=== PATIENT | male | born 1955 | race Caucasian/White ===

== ENCOUNTER → 2016-05-14 | Outpatient (CLI) | payer BC ==
[2016-05-14 10:58] LABS: EKG EKG PERFORMED
[2016-05-14 11:20] LABS: Basophils # (A) 0.1 k/uL (0-0.2); Basophils % (A) 1 %; CH 29.7; CHCM 32.2; Eosinophils # (A) 0.4 k/uL (0-0.7); Eosinophils % (A) 5 %; HCT 52.8 % (39.0-53.0); HDW 3.15; Hypochromasia Slight; Luc # (Auto) 0.13; Luc % (Auto) 2; Lymphocytes # (A) 0.7 k/uL (1.0-4.8); Lymphocytes % (A) 9 %; MCH 29.8 pg (25.0-35.0); MCHC 32.1 g/dL (31.0-37.0); MCV 92.7 fL (80.0-100.0); Mean Platelet Volume 7.1; Monocytes # (A) 0.5 k/uL (0-1.0); Monocytes % (A) 7 %; Neutrophils # (A) 5.8 k/uL (1.3-7.7); Neutrophils % (A) 76 %; WBC 7.6 k/uL (3.8-10.6); WBC (Perox) 7.99
[2016-05-14 11:24] LABS: ALT 57 U/L (21-72); AST 35 U/L (17-59); Alkaline Phosphatase 71 U/L (38-126); Anion Gap 14 mmol/L; Blood Urea Nitrogen 14 mg/dL (9-20); Carbon Dioxide 23 mmol/L (22-30); Chloride 104 mmol/L (98-107); Glucose 191 mg/dL (74-99); Non-African American GFR(MDRD) >60 (>60 ml/min/1.73 sqM); Potassium 4.7 mmol/L (3.5-5.1); Sodium 141 mmol/L (137-145); Total Bilirubin 1.4 mg/dL (0.2-1.3); Total Protein 6.7 g/dL (6.3-8.2)
== END | disposition home or self-care (01) ==
LOC: LABPAT 10:26
PROVIDERS: ATTEND Surgery
DX: Z01.818 Encounter for other preprocedural examination (principal)
CPT/HCPCS: 80053; 85025; 93005

== ENCOUNTER 2016-06-07 07:45 | Inpatient (IN) | payer BC ==
[~2016-06-07 07:45] MED LIST: SUCCINYLCHOLINE CHLORIDE VIAL 200 MG/10 ML VIAL IV ONE
[2016-06-12] MEDS ORDERED: ceFAZolin 3 GM in SODIUM CHLORIDE 0.9% 100 ML IVPB ONE (05:00)
[2016-06-12] MEDS ORDERED: HEPARIN SODIUM,PORCINE 5,000 UNIT/ML 1 ML VIAL SQ ONE (05:00)
[2016-06-12] MEDS ORDERED: DEXAMETHASONE SOD PHOSPHATE 10 MG/ML 1 ML VIAL IV ONE (06:56)
[2016-06-12] MEDS ORDERED: LACTATED RINGERS 1,000 ML IV SCH (06:56)
[2016-06-12] MEDS ORDERED: MIDAZOLAM 2 MG/2 ML VIAL IV PRN (06:56)
[2016-06-12] MEDS ORDERED: ONDANSETRON 4 MG/2 ML VIAL IVP ONE (06:56)
[2016-06-12] MEDS ORDERED: LIDOCAINE 1% 20 ML VIAL (10MG/ML) FOR IV START INTRADERMA ONE (12:44)
[2016-06-12] MEDS ORDERED: ALBUTEROL NEBULIZED 2.5 MG/3 ML INHALATION STA (12:46)
[2016-06-12 12:50] LABS: Glucose,Whole Blood 126 mg/dL (75-99)
--- NOTE | 2016-06-12 12:51 | P.GSHP ---
History of Present Illness H&P Date: 06/12/16 Chief Complaint: Morbid obesity This a 7-year-old male who's had lifetime problems obesity. Patient's BMI is 50. He has severe: Raised related to morbid obesity. He presents today for laparoscopic sleeve gastrectomy. Patient aware the risks of surgery including injury to the stomach liver spleen he is also aware the risk of gastric staple line disruption, bleeding perforation or scarring. - Constitutional Constitutional: Reports as per HPI Past Medical History Past Medical History: Atrial Fibrillation, Hypertension, Respiratory Disorder Additional Past Medical History / Comment(s): asthma History of Any Multi-Drug Resistant Organisms: None Reported Past Surgical History: Appendectomy, Tonsillectomy Additional Past Surgical History / Comment(s): Colonoscopy Past Anesthesia/Blood Transfusion Reactions: No Reported Reaction Past Psychological History: No Psychological Hx Reported Smoking Status: Never smoker Past Alcohol Use History: Occasional Past Drug Use History: None Reported - Past Family History Mother Family Medical History: Deep Vein Thrombosis (DVT) Medications and Allergies Home Medications Medication Instructions Recorded Confirmed Type Aspirin [Adult Low Dose Aspirin EC] 81 mg PO DAILY 01/02/16 06/12/16 History Lisinopril-Hctz 20-12.5 mg 1 tab PO DAILY 01/02/16 06/12/16 History [Zestoretic 20-12.5] Albuterol Nebulized [Ventolin 2.5 dose IH DAILY PRN 01/05/16 06/12/16 History Nebulized] Allergies Allergy/AdvReac Type Severity Reaction Status Date / Time No Known Allergies Allergy Verified 06/12/16 12:30 Surgical - Exam Vital Signs Temp Pulse Resp BP Pulse Ox 97.9 F 77 20 126/73 96 06/12/16 12:28 06/12/16 12:28 06/12/16 12:28 06/12/16 12:28 06/12/16 12:28 BMI 50 - General well developed - Eyes PERRL - ENT normal pinna - Neck no masses - Respiratory normal expansion - Cardiovascular Rhythm: regular - Abdomen Abdomen: soft, non tender Assessment and Plan Plan: Morbid obesity, BMI 50. We'll perform laparoscopic sleeve gastrectomy.
[2016-06-12] MEDS ORDERED: PROPOFOL 10 MG/ML 20 ML VIAL IV ONE (13:12)
[2016-06-12] MEDS ORDERED: ePHEDrine 50 MG/ML 1 ML AMP ONE (13:12)
[2016-06-12] MEDS ORDERED: NEOSTIGMINE 1 MG/ML 10 ML VIAL ONE (13:12)
[2016-06-12] MEDS ORDERED: MIDAZOLAM 2 MG/2 ML VIAL ONE (13:12)
[2016-06-12] MEDS ORDERED: LIDOCAINE 1% INJ 10MG/ML (20 ML MDV) ONE (13:12)
[2016-06-12] MEDS ORDERED: ROCURONIUM BROMIDE 10 MG/ML 10 ML VIAL IV ONE (13:12)
[2016-06-12] MEDS ORDERED: fentaNYL (PF) 50 MCG/ML 2 ML AMP ONE (13:12)
[2016-06-12] MEDS ORDERED: GLYCOPYRROLATE 0.2 MG/ML 2 ML VIAL ONE (13:12)
[2016-06-12] MEDS ORDERED: SUCCINYLCHOLINE CHLORIDE VIAL 200 MG/10 ML VIAL IV ONE (13:12)
[2016-06-12] MEDS ORDERED: BUPIVACAIN-EPI 0.25%-1:200,000 30 ML VIAL SQ ONE ×2 (13:22)
[2016-06-12] MEDS ORDERED: LACTATED RINGERS 1,000 ML IV ONE (14:30)
[2016-06-12] MEDS ORDERED: METHYLENE BLUE 10 MG/ML 1 ML VIAL MISCELLANE ONE (14:36)
[2016-06-12] MEDS ORDERED: NALOXONE 0.4 MG/ML 1 ML VIAL IV PRN (15:09)
[2016-06-12] MEDS ORDERED: ONDANSETRON 4 MG/2 ML VIAL IVP PRN (15:09)
--- NOTE | 2016-06-12 15:09 | P.OP ---
Date of Procedure: 06/12/16 Preoperative Diagnosis: Morbid obesity Postoperative Diagnosis: Morbid obesity Procedure(s) Performed: Laparoscopic sleeve gastrectomy. Laparoscopic hiatal hernia repair Anesthesia: PHONG Surgeon: Jesus Ferreira Estimated Blood Loss (ml): 5 Pathology: other (Gastric remnant) Condition: stable Disposition: PACU Description of Procedure: The patient was placed on the operating room table in the supine position. She received general anesthesia and then was placed in dorsal lithotomy position. Her abdomen was prepped and draped in sterile fashion. The skin incision sites were anesthetized 1% local Xylocaine. And then the skin was incised with an 11 blade in the left lateral position. Using a blade less trocar under direct visualization the peritoneal cavity was entered. The abdomen was insufflated and then a 5 mm laparoscope was placed into the peritoneal cavity. A 5 mm trocar was placed in the right epigastric, and right lateral position. A 15 mm trocar was placed in the supra-umbilical position and another 5 mm trocar was placed in the left lateral position. The left lateral lobe of the liver was retracted. The stomach was visualized. The greater curvature of the stomach was then dissected using the Harmonic scissors. The dissection occurred approximately 5 cm from the pylorus to the level of the left jessi. There was a hiatal hernia seen. The right and left jessi were dissected with the Harmonic scissors. And then the crural repair was performed using 2-0 Ethibond suture. At this point a 40-English bougie dilator was placed the oropharynx and passed into the esophagus and into the stomach by the CLAIM TECHNICIAN. The sleeve gastrectomy was performed by using the powered echelon stapler with a seam guard buttress material. Sequential firings of the stapler were performed. The gastric remnant was then brought out through the 15 mm trocar site. The dilator was withdrawn. And a orogastric tube was replaced into the stomach. The stomach was insufflated with 200 mL of methylene blue normal saline. There was no evidence of extravasation. The abdomen was irrigated there is no bleeding seen. The Stephane-Pau device was used to close the 15 mm trocar with 0 Vicryl. Skin was closed with interrupted 3-0 Monocryl sutures once the trochars withdrawn. Dermabond dressing was applied. Patient was sent to recovery in stable condition.
[2016-06-12] MEDS: HYDROmorphone 1 MG/ML 1 ML SYRINGE IVP PRN ×5 (15:35→22:50)
[2016-06-12] MEDS: ALBUTEROL NEBULIZED 2.5 MG/3 ML INHALATION SCH ×2 (16:58→20:20)
[2016-06-12 18:21] VITALS: BMI 49.4
[2016-06-12] MEDS: 0.9% NACL WITH KCL 20 MEQ/L 1,000 ML IV SCH (18:31)
[2016-06-12] MEDS: AMPICILLIN-SULBACTAM 3 GM in SODIUM CHLORIDE 0.9% 100 ML IVPB SCH ×2 (18:32→23:25)
[2016-06-12] MEDS: KETOROLAC 30 MG/ML 1 ML VIAL IVP SCH (19:13)
[2016-06-13] MEDS: KETOROLAC 30 MG/ML 1 ML VIAL IVP SCH ×4 (00:03→16:49)
[2016-06-13] MEDS: HYDROmorphone 1 MG/ML 1 ML SYRINGE IVP PRN ×2 (03:01→08:59)
[2016-06-13] MEDS: 0.9% NACL WITH KCL 20 MEQ/L 1,000 ML IV SCH ×3 (05:27→09:03)
[2016-06-13 08:15] LABS: Basophils % (A) 0 %; CHCM 32.5; Eosinophils # (A) 0.1 k/uL (0-0.7); Eosinophils % (A) 0 %; HCT 46.7 % (39.0-53.0); HDW 3.07; HGB 14.7 gm/dL (13.0-17.5); Luc # (Auto) 0.08; Luc % (Auto) 1; Lymphocytes # (A) 0.4 k/uL (1.0-4.8); Lymphocytes % (A) 3 %; MCH 29.2 pg (25.0-35.0); MCHC 31.4 g/dL (31.0-37.0); MCV 92.9 fL (80.0-100.0); Mean Platelet Volume 7.7; Monocytes % (A) 7 %; Neutrophils # (A) 12.1 k/uL (1.3-7.7); Neutrophils % (A) 89 %; RBC 5.03 m/uL (4.30-5.90); RDW 13.8 % (11.5-15.5); WBC 13.7 k/uL (3.8-10.6); WBC (Perox) 14.13
[2016-06-13 08:19] LABS: Anion Gap 11 mmol/L; Blood Urea Nitrogen 20 mg/dL (9-20); Calcium 8.7 mg/dL (8.4-10.2); Carbon Dioxide 22 mmol/L (22-30); Chloride 104 mmol/L (98-107); Magnesium 1.7 mg/dL (1.6-2.3); Non-African American GFR(MDRD) >60 (>60 ml/min/1.73 sqM); Phosphorous 4.1 mg/dL (2.5-4.5); Potassium 5.2 mmol/L (3.5-5.1); Sodium 137 mmol/L (137-145)
--- NOTE | 2016-06-13 08:51 | FL ---
EXAMINATION TYPE: FL UGI DATE OF EXAM: 06/13/2016 8:42 AM COMPARISON: NONE HISTORY: Status post gastric sleeve TECHNIQUE: A single contrast UGI study is performed. FINDINGS: Patient was given 50 cc Omni 350 to drink and attention directed to the gastroesophageal ju nction. Incidental note made of multiple gallstones in the right upper quadrant. There is no obstruct ion to flow or extravasation evident. Transit into the small bowel is noted. Postop changes are prese nt in the stomach. Impression: No evident complication status post gastric sleeve, limited exam.
[2016-06-13] MEDS: PANTOPRAZOLE 40 MG/10 ML VIAL IV SCH (08:58)
[2016-06-13] MEDS: ENOXAPARIN 60 MG/0.6 ML SYRINGE SQ SCH ×2 (08:58→22:10)
[2016-06-13] MEDS: ALBUTEROL NEBULIZED 2.5 MG/3 ML INHALATION SCH ×3 (09:01→15:30)
[2016-06-13] MEDS ORDERED: Magnesium Replacement Protocol 1 EACH MISC MISCELLANE PRN (10:54)
--- NOTE | 2016-06-13 11:51 | P.PN ---
Subjective Principal diagnosis: Morbid obesity Patient is a 61-year-old male with medical history significant for morbid obesity status post laparoscopic sleeve gastrectomy and laparoscopic hiatal hernia repair. Patient is evaluated on surgical unit where he is postop day #1. According to nurse, patient was experiencing mild respiratory distress post surgery requiring BiPAP temporarily. Pulmonary consult has been obtained. This morning, patient is feeling better. Denies chills, nausea, vomiting, shortness of breath, or chest pain. Denies dysphagia. Patient is tolerating clear liquids. Patient denies flatus or bowel movements but reports burping. Patient is urinating without difficulty. Patient has been up ambulating. Upper GI series without leak or obstruction; incidental note made of multiple gallstones in the right upper quadrant. Afebrile. WBC 13.7. Objective - Vital Signs Vital signs: Vital Signs Temp 97.9 F 06/13/16 08:30 Pulse 78 06/13/16 09:14 Resp 18 06/13/16 08:30 BP 108/66 06/13/16 08:30 Pulse Ox 96 06/13/16 09:03 Intake & Output 06/12/16 06/13/16 06/13/16 18:59 06:59 18:59 Intake Total 1300 Output Total 10 200 Balance 1290 -200 Weight 165.108 kg Intake: IV 1300 Output: Urine 200 Estimated Blood Loss 10 Other: Voiding Method Toilet Toilet - Exam GENERAL: Pt awake and alert, well-appearing, well-nourished, and in no acute distress. LUNGS: Breath sounds diminished with faint expiratory wheezing. HEART: Heart S1, S2, no S3 or S4. Irregularly irregular. No murmurs, rubs or gallops. ABDOMEN: Soft, morbidly obese, mild incisional tenderness, nondistended, hypoactive bowel sounds. No guarding. Surgical laparoscopic incisions dry with Dermabond intact. No erythema or drainage. NEUROLOGICAL: Pt oriented x 3. - Labs CBC & Chem 7: 06/13/16 07:44 06/13/16 07:38 Labs: Abnormal Lab Results - Last 24 Hours (Table) 06/12/16 06/13/16 06/13/16 Range/Units 12:48 07:38 07:44 WBC 13.7 H (3.8-10.6) k/uL Neutrophils # 12.1 H (1.3-7.7) k/uL Lymphocytes # 0.4 L (1.0-4.8) k/uL Potassium 5.2 H (3.5-5.1) mmol/L POC Glucose (mg/dL) 126 H (75-99) mg/dL Assessment and Plan Plan: Impression: 1. Morbid obesity status post laparoscopic sleeve gastrectomy on 06/12/2016. 2. Status post laparoscopic hiatal hernia repair on 06/12/2016. 3. Leukocytosis, suspect reactive. WBC 13.7. 4. Hyperkalemia. Potassium 5.2. 5. Hypomagnesemia. Magnesium 1.7. 6. Post operative respiratory distress, improved. Plan: 1. Continue to monitor patient. Obtain chest x-ray. Pulmonary consult requested, recommendations pending. Replace magnesium per protocol. Remove potassium from IV fluids. Continue supportive treatment and pain management. Increase activity. Continue incentive spirometry 10 times an hour while awake. Repeat CBC and BMP in a.m. The above impression and plan have been discussed and directed by Dr. Ferreira. Robinson BROWN acting as scribe for Dr. Ferreira.
[2016-06-13] MEDS ORDERED: HYDROcodone/APAP 7.5-325MG 1 EACH TAB PO PRN (11:52)
[2016-06-13] MEDS: MAGNESIUM SULFATE-D5W PMX 1 GM in DEXTROSE/WATER 1 100ML.BAG IVPB SCH ×2 (12:19→16:49)
--- NOTE | 2016-06-13 12:29 | XR ---
EXAMINATION TYPE: XR chest 2V DATE OF EXAM: 06/13/2016 11:11 AM COMPARISON: 08/19/2013 HISTORY: Shortness of breath FINDINGS: Subsegmental changes at the right lung base. There is pleural-based thickening and small effusion. He art is enlarged. Correlate for mild central venous congestion. IMPRESSION: 1. Correlate for mild venous congestion with small bilateral effusions.
[2016-06-13] MEDS: SODIUM CHLORIDE 0.9% 1,000 ML IV SCH (12:30)
--- NOTE | 2016-06-13 13:20 | P.CRDCN ---
History of Present Illness Consult date: 06/13/16 History of present illness: This is a 61-year-old gentleman with history of morbid obesity who underwent gastric sleeve operation was found to have atrial fibrillation. According to the patient patient had atrial fibrillation for along time. He claims that he was seen by [facility] couple of years ago and had evaluation for atrial fibrillation. He claims that he had a cardiac catheterization and was not found to have any significant obstructive disease and he was advised to be on aspirin. Patient is also being treated for hypertension. Patient's heart rate is controlled. He denies any chest pain shortness of breath or dizziness. At the time of my examination patient is sitting at the edge of the bed and doesn' t appear to be in acute distress. I'm going to get an echocardiogram done to assess LV function. If LV function is normal, patient can continue with rate control and aspirin. Patient also may consider going on anticoagulation therapy , especially patient has any LV dysfunction or if he has any vascular disorder. Further recommendation to follow.The patient has underlying COPD and chronic wheezing and has been on updraft treatments at home . His chest x-ray was reported as showing mild venous congestion and possible small effusions Review of Systems As per the chart Past Medical History Past Medical History: Atrial Fibrillation, Hypertension, Respiratory Disorder Additional Past Medical History / Comment(s): asthma History of Any Multi-Drug Resistant Organisms: None Reported Past Surgical History: Appendectomy, Tonsillectomy Additional Past Surgical History / Comment(s): Colonoscopy Past Anesthesia/Blood Transfusion Reactions: No Reported Reaction Past Psychological History: No Psychological Hx Reported Smoking Status: Never smoker Past Alcohol Use History: Occasional Past Drug Use History: None Reported - Past Family History Mother Family Medical History: Deep Vein Thrombosis (DVT) Medications and Allergies Home Medications Medication Instructions Recorded Confirmed Type Aspirin [Adult Low Dose Aspirin EC] 81 mg PO DAILY 01/02/16 06/12/16 History Lisinopril-Hctz 20-12.5 mg 1 tab PO DAILY 01/02/16 06/12/16 History [Zestoretic 20-12.5] Albuterol Nebulized [Ventolin 2.5 mg INHALATION RT-DAILY PRN 01/05/16 06/12/16 History Nebulized] Allergies Allergy/AdvReac Type Severity Reaction Status Date / Time No Known Allergies Allergy Verified 06/12/16 16:52 Physical Exam Vitals: Vital Signs Temp Pulse Pulse Pulse Resp BP Pulse Ox 06/13/16 12:14 84 06/13/16 11:55 79 06/13/16 11:49 95 06/13/16 09:14 78 06/13/16 09:03 76 96 06/13/16 08:30 97.9 F 78 18 108/66 98 06/13/16 08:00 67 18 06/13/16 03:34 96.8 F L 67 18 116/66 99 06/12/16 23:41 95 06/12/16 20:49 74 06/12/16 20:36 72 06/12/16 19:45 81 107/66 06/12/16 19:30 80 113/57 06/12/16 19:15 86 118/61 06/12/16 19:00 84 106/62 06/12/16 18:45 83 113/62 06/12/16 18:30 86 107/65 06/12/16 18:15 89 120/65 06/12/16 18:00 92 110/61 06/12/16 17:45 92 103/60 06/12/16 17:30 94 114/56 06/12/16 17:15 90 115/69 06/12/16 17:11 78 06/12/16 17:00 88 108/72 06/12/16 16:58 74 06/12/16 16:45 86 113/75 06/12/16 16:30 96.6 F L 85 18 128/62 96 06/12/16 16:00 81 16 125/71 92 L 06/12/16 15:48 90 16 158/67 92 L 06/12/16 15:30 115 H 16 93 L 06/12/16 15:08 96.8 F L 93 20 165/77 93 L Intake and Output 06/12/16 06/13/16 06/13/16 22:59 06:59 14:59 Intake Total 0 Output Total 200 Balance 0 -200 Intake: IV 0 Output: Urine 200 Other: Voiding Method Toilet Toilet Toilet Urinal Weight 165.108 kg GENERAL EXAM: Patient is alert and oriented and doesn't appear to be in any acute distress HEENT: Normocephalic. Normal reaction of pupils, equal size, normal range of extraocular motion. No erythema or exudates in the throat. NECK: No masses, no nuchal rigidity. CHEST: No chest wall deformity. LUNGS: Expiratory wheezing and rhonchi HEART: S1 and S2 normal with no audible mumurs or gallops. Regular rhythm, femorals equal on both sides.. ABDOMEN: No hepatosplenomegaly, normal bowel sounds, no guarding or rigidity. SKIN: No rashes CENTRAL NERVOUS SYSTEM: No focal deficits. EXTREMITIES: No cyanosis, clubbing or edema. Results 06/13/16 07:44 06/13/16 07:38 CBC 06/13/16 Range/Units 07:44 WBC 13.7 H (3.8-10.6) k/uL RBC 5.03 (4.30-5.90) m/uL Hgb 14.7 (13.0-17.5) gm/dL Hct 46.7 (39.0-53.0) % Plt Count 186 (150-450) k/uL Comprehensive Metabolic Panel 06/13/16 Range/Units 07:38 Sodium 137 (137-145) mmol/L Potassium 5.2 H (3.5-5.1) mmol/L Chloride 104 (98-107) mmol/L Carbon Dioxide 22 (22-30) mmol/L BUN 20 (9-20) mg/dL Creatinine 1.14 (0.66-1.25) mg/dL Calcium 8.7 (8.4-10.2) mg/dL Current Medications Generic Name Dose Route Start Last Admin Trade Name Freq PRN Reason Stop Dose Admin Acetaminophen/Hydrocodone Bitart 1 each 06/13/16 11:52 [place] 7.5-325 PO Q6H PRN Pain Albuterol Sulfate 2.5 mg 06/12/16 16:00 06/13/16 11:55 Ventolin Nebulized INHALATION 2.5 mg RT-QID BERENICE Administration Enoxaparin Sodium 60 mg 06/13/16 09:00 06/13/16 08:58 Lovenox SQ 60 mg Q12HR BERENICE Administration Hydromorphone HCl 1 mg 06/12/16 15:09 06/13/16 08:59 Dilaudid IVP 1 mg Q3HR PRN Administration Pain Sodium Chloride 1,000 mls @ 75 mls/hr 06/13/16 10:45 06/13/16 12:30 Saline 0.9% IV 75 mls/hr .[id number] BERENICE Administration Ketorolac Tromethamine 15 mg 06/12/16 18:00 06/13/16 12:19 Toradol IVP 06/14/16 12:01 15 mg Q6HR BERENICE Administration Miscellaneous Information 1 each 06/13/16 10:54 Magnesium Per Protocol MISCELLANE DAILY PRN Per Protocol Protocol Naloxone HCl 0.2 mg 06/12/16 15:09 Narcan IV Q2M PRN Opioid Reversal Ondansetron HCl 4 mg 06/12/16 15:09 06/12/16 22:04 Zofran IVP 4 mg Q8HR PRN Administration Nausea And Vomiting Pantoprazole Sodium 40 mg 06/13/16 09:00 06/13/16 08:58 Protonix IV 40 mg DAILY BERENICE Administration Intake and Output 06/12/16 06/13/16 06/13/16 22:59 06:59 14:59 Intake Total 0 Output Total 200 Balance 0 -200 Intake: IV 0 Output: Urine 200 Other: Voiding Method Toilet Toilet Toilet Urinal Weight 165.108 kg 06/13/16 07:44 06/13/16 07:38 EKG Interpretations (text) Atrial fibrillation with controlled ventricular response Assessment and Plan (1) Atrial fibrillation Status: Acute (2) Hypertension Status: Acute (3) Morbid obesity Status: Acute (4) CHF (congestive heart failure) Status: Acute Plan: I'm going to obtain echocardiogram to assess LV function and I'm also going to get BNP levels. If the LV function shows an ejection fraction below 40% or. BNP is elevated consistent with CHF, we'll may switch aspirin to anticoagulation therapy.
--- NOTE | 2016-06-13 14:40 | P.CONS ---
History of Present Illness - Reason for Consult Consult date: 06/12/16 Medical management Requesting physician: Jesus Ferreira - Chief Complaint Morbid obesity - History of Present Illness Patient is a 61-year-old male admitted to the hospital for elective laparoscopic sleeve gastrectomy for morbid obesity having failed outpatient conservative treatment. Patient also has a medical history of atrial fibrillation, hypertension, and asthma. Patient is evaluated on the surgical unit where he is postop day #1. Per nursing staff, patient had some respiratory difficulties after arriving on the unit after surgery and was placed on BiPAP for a short period of time. This morning, patient is lying in bed. Patient is complaining of moderate incisional pain exacerbated with movement. Patient denies chills, fevers, nausea, vomiting, increased shortness of breath, chest pain, leg swelling, diarrhea or constipation. At this time, patient denies flatus but reports burping. Upper GI series with no evidence of leak or obstruction. Patient is tolerating a clear liquid diet. Patient is currently on 2 L nasal cannula with oxygenation of 95%. Afebrile. Hemodynamically stable. WBC 13.7. Potassium 5.2. Magnesium 1.7. NT proBNP 687. Past Medical History Past Medical History: Atrial Fibrillation, Hypertension, Respiratory Disorder Additional Past Medical History / Comment(s): asthma History of Any Multi-Drug Resistant Organisms: None Reported Past Surgical History: Appendectomy, Tonsillectomy Additional Past Surgical History / Comment(s): Colonoscopy Past Anesthesia/Blood Transfusion Reactions: No Reported Reaction Past Psychological History: No Psychological Hx Reported Smoking Status: Never smoker Past Alcohol Use History: Occasional Past Drug Use History: None Reported - Past Family History Mother Family Medical History: Deep Vein Thrombosis (DVT) Medications and Allergies Home Medications Medication Instructions Recorded Confirmed Type Aspirin [Adult Low Dose Aspirin EC] 81 mg PO DAILY 01/02/16 06/12/16 History Lisinopril-Hctz 20-12.5 mg 1 tab PO DAILY 01/02/16 06/12/16 History [Zestoretic 20-12.5] Albuterol Nebulized [Ventolin 2.5 mg INHALATION RT-DAILY PRN 01/05/16 06/12/16 History Nebulized] Allergies Allergy/AdvReac Type Severity Reaction Status Date / Time No Known Allergies Allergy Verified 06/12/16 16:52 Physical Exam Vitals: Vital Signs Temp Pulse Pulse Pulse Resp BP Pulse Ox 06/13/16 12:14 84 06/13/16 11:55 79 06/13/16 11:49 95 06/13/16 09:14 78 06/13/16 09:03 76 96 06/13/16 08:30 97.9 F 78 18 108/66 98 06/13/16 08:00 67 18 06/13/16 03:34 96.8 F L 67 18 116/66 99 06/12/16 23:41 95 06/12/16 20:49 74 06/12/16 20:36 72 06/12/16 19:45 81 107/66 06/12/16 19:30 80 113/57 06/12/16 19:15 86 118/61 06/12/16 19:00 84 106/62 06/12/16 18:45 83 113/62 06/12/16 18:30 86 107/65 06/12/16 18:15 89 120/65 06/12/16 18:00 92 110/61 06/12/16 17:45 92 103/60 06/12/16 17:30 94 114/56 06/12/16 17:15 90 115/69 06/12/16 17:11 78 06/12/16 17:00 88 108/72 06/12/16 16:58 74 06/12/16 16:45 86 113/75 06/12/16 16:30 96.6 F L 85 18 128/62 96 06/12/16 16:00 81 16 125/71 92 L 06/12/16 15:48 90 16 158/67 92 L 06/12/16 15:30 115 H 16 93 L 06/12/16 15:08 96.8 F L 93 20 165/77 93 L Intake and Output 06/12/16 06/13/16 06/13/16 22:59 06:59 14:59 Intake Total 0 Output Total 200 Balance 0 -200 Intake: IV 0 Output: Urine 200 Other: Voiding Method Toilet Toilet Toilet Urinal Weight 165.108 kg GENERAL: Pt awake and alert, well-appearing, well-nourished, and in no acute distress. HEAD: Atraumatic, normocephalic. EYES: Pupils equal, round, and reactive to light, extraocular movements intact, sclera anicteric, conjunctiva are normal. ENT: Moist mucous membranes. NECK:Normal range of motion, supple without lymphadenopathy or JVD. LUNGS: Breath sounds diminished with faint expiratory wheezing. HEART: Heart S1, S2, no S3 or S4. Irregularly irregular. No murmurs, rubs or gallops. Atrial fibrillation with controlled ventricular response on monitor. ABDOMEN: Soft, morbidly obese, mild incisional tenderness, nondistended, hypoactive bowel sounds. No guarding. Laparoscopic incisions dry with Dermabond intact, no erythema or drainage. EXTREMITIES: 2+ peripheral pulses. No edema. No calf tenderness. NEUROLOGICAL: Pt oriented x 3. Cranial nerves II through XII grossly intact. Strength and sensation grossly intact. PSYCH: Normal mood, normal affect. SKIN: Warm, dry, intact. Normal turgor. No rashes or lesions. Results CBC & Chem 7: 06/13/16 07:44 06/13/16 07:38 Labs: Abnormal Lab Results - Last 24 Hours (Table) 06/13/16 06/13/16 Range/Units 07:38 07:44 WBC 13.7 H (3.8-10.6) k/uL Neutrophils # 12.1 H (1.3-7.7) k/uL Lymphocytes # 0.4 L (1.0-4.8) k/uL Potassium 5.2 H (3.5-5.1) mmol/L Assessment and Plan Plan: Impression and plan: 1. Morbid obesity status post laparoscopic sleeve gastrectomy and laparoscopic hiatal hernia repair on 06/12/2016. Continue surgical management by surgical team. 2. History of asthma. Will obtain chest x-ray. 3. Leukocytosis, suspect reactive. WBC 13.7. 4. Hyperkalemia. Potassium 5.2. 5. Hypomagnesemia. Magnesium 1.7. 6. Post operative respiratory distress, improved. Pulmonary consult requested , recommendations pending. 7. Chronic atrial fibrillation. Cardiology consult requested, recommendations pending. 8. Hypertension. 9. GI prophylaxis. Continue Protonix. 10. DVT prophylaxis. Continue Lovenox. 11. Repeat CBC and BMP in a.m. The above impression and plan have been discussed and directed by Dr. Bhakta. Robinson BROWN acting as scribe for Dr. Bhakta.
[2016-06-13] MEDS ORDERED: ALBUTEROL NEBULIZED 2.5 MG/3 ML INHALATION PRN (17:32)
--- NOTE | 2016-06-13 17:33 | P.CNPUL ---
History of Present Illness Consult date: 06/13/16 Reason for consult: dyspnea, hypoxemia Chief complaint: Hypoxia History of present illness: This is a 61-year-old morbidly obese male who presented for elective laparoscopic sleeve gastrectomy. Per the medical record the patient had some respiratory difficulties after his surgery. He did require BiPAP for a short time. The patient is seen and examined currently on room air. His O2 saturation is 96%. He is sitting up at the bedside. He is complaining of abdominal pain. He is dates that he has a history of asthma but has never had a pulmonary function test. He states he is a never smoker except for a few times in high school. 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 The patient states that he does occasionally snore. He does have frequent nighttime awakenings requiring him to get up and use the bathroom. He denies any history of waking himself up choking, coughing, gagging. He becomes upset when obstructive sleep apnea as discussed. He states that "people think I have sleep apnea just because on that." The pathophysiology of obstructive sleep apnea discussed with the patient. 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 Review of Systems All systems: negative Past Medical History Past Medical History: Atrial Fibrillation, Hypertension, Respiratory Disorder Additional Past Medical History / Comment(s): asthma History of Any Multi-Drug Resistant Organisms: None Reported Past Surgical History: Appendectomy, Tonsillectomy Additional Past Surgical History / Comment(s): Colonoscopy Past Anesthesia/Blood Transfusion Reactions: No Reported Reaction Past Psychological History: No Psychological Hx Reported Smoking Status: Never smoker Past Alcohol Use History: Occasional Past Drug Use History: None Reported - Past Family History Mother Family Medical History: Deep Vein Thrombosis (DVT) Medications and Allergies Home Medications Medication Instructions Recorded Confirmed Type Aspirin [Adult Low Dose Aspirin EC] 81 mg PO DAILY 01/02/16 06/12/16 History Lisinopril-Hctz 20-12.5 mg 1 tab PO DAILY 01/02/16 06/12/16 History [Zestoretic 20-12.5] Albuterol Nebulized [Ventolin 2.5 mg INHALATION RT-DAILY PRN 01/05/16 06/12/16 History Nebulized] Allergies Allergy/AdvReac Type Severity Reaction Status Date / Time No Known Allergies Allergy Verified 06/12/16 16:52 Physical Exam Osteopathic Statement: *. No significant issues noted on an osteopathic structural exam other than those noted in the History and Physical/Consult. Vitals: Vital Signs Temp Pulse Pulse Pulse Resp BP Pulse Ox 06/13/16 15:00 97.4 F L 65 18 112/67 94 L 06/13/16 12:14 84 06/13/16 11:55 79 06/13/16 11:49 95 06/13/16 09:14 78 06/13/16 09:03 76 96 06/13/16 08:30 97.9 F 78 18 108/66 98 06/13/16 08:00 67 18 06/13/16 03:34 96.8 F L 67 18 116/66 99 06/12/16 23:41 95 06/12/16 20:49 74 06/12/16 20:36 72 06/12/16 19:45 81 107/66 06/12/16 19:30 80 113/57 06/12/16 19:15 86 118/61 06/12/16 19:00 84 106/62 06/12/16 18:45 83 113/62 06/12/16 18:30 86 107/65 06/12/16 18:15 89 120/65 06/12/16 18:00 92 110/61 06/12/16 17:45 92 103/60 06/12/16 17:30 94 114/56 Intake and Output 06/13/16 06/13/16 06/13/16 06:59 14:59 22:59 Output Total 200 Balance -200 Output: Urine 200 Other: Voiding Method Toilet Toilet Gen.: Patient is alert and oriented 3, no acute distress, morbidly obese Cardiovascular: Regular rate and rhythm, S1/S2 Lungs: Diminished sounds bilaterally Abdomen: Soft, mildly diffusely tender to palpation, positive bowel sounds Extremities: 1+ pitting edema Results - Laboratory Findings CBC and BMP: 06/13/16 07:44 06/13/16 07:38 Abnormal lab findings: Abnormal Labs 06/12/16 06/13/16 06/13/16 12:48 07:38 07:44 WBC 13.7 H Neutrophils # 12.1 H Lymphocytes # 0.4 L Potassium 5.2 H POC Glucose (mg/dL) 126 H - Diagnostic Findings Chest x-ray: report reviewed, image reviewed Assessment and Plan Plan: Acute hypoxic respiratory failure, multifactorial Morbid obesity, likely underlying obstructive sleep apnea History of asthma, unknown type Pulmonary vascular congestion on chest x-ray Status post elective laparoscopic sleeve gastrectomy History of atrial fibrillation History of congestive heart failure, unknown type and ejection fraction Hypertension O2 to maintain saturation greater than equal to 88% Check echocardiogram Patient is encouraged to follow-up outpatient for PSG and PFT Pain control Incentive spirometry and pulmonary hygiene I's and O's and daily weights DC BiPAP Bronchodilators and Pulmicort GI and DVT prophylaxis
[2016-06-13 18:32] VITALS: RESP 16
[2016-06-13] MEDS: IPRATROPIUM-ALBUTEROL 3 ML NEB INHALATION SCH (19:40)
[2016-06-13] MEDS: BUDESONIDE 0.5 MG/2 ML NEBU INHALATION SCH (19:40)
[2016-06-14] MEDS: KETOROLAC 30 MG/ML 1 ML VIAL IVP SCH ×3 (01:41→11:06)
[2016-06-14] MEDS: SODIUM CHLORIDE 0.9% 1,000 ML IV SCH (01:42)
[2016-06-14] MEDS: IPRATROPIUM-ALBUTEROL 3 ML NEB INHALATION SCH ×2 (06:00→10:38)
[2016-06-14] MEDS: BUDESONIDE 0.5 MG/2 ML NEBU INHALATION SCH (06:00)
[2016-06-14 07:33] VITALS: BP 118/60; TEMP 97.6
--- NOTE | 2016-06-14 09:04 | ECHOF ---
Referral Reason:Chest pain and cardiomyopathy MEASUREMENTS -------- HEIGHT: 182.9 cm WEIGHT: 165.1 kg BP: 108/66 RVIDd: 3.9 cm (< 3.3) IVSd: 1.3 cm (0.6 - 1.1) LVIDd: 5.9 cm (3.9 - 5.3) LVPWd: 1.3 cm (0.6 - 1.1) IVSs: 2.0 cm LVIDs: 4.4 cm LVPWs: 2.0 cm LA Diam: 4.7 cm (2.7 - 3.8) Ao Diam: 3.9 cm (2.0 - 3.7) LA Diam: 4.7 cm (2.7 - 3.8) RAP: 5.00 mmHg RVSP: 34.03 mmHg FINDINGS -------- Atrial fibrillation. This was a technically difficult study with suboptimal views. There is mild concentric left ventricular hypertrophy. Overall left ventricular systolic function is low-normal with, an EF between 50 - 55 %. The right ventricle is mild to moderately enlarged. The left atrium is markedly dilated. The right atrium is normal in size. 1.5mg of Definity was utilized for enhancement of images Aortic valve is trileaflet and is mildly thickened. The mitral valve leaflets are mildly thickened. Mild mitral annular calcification present. Mild tricuspid regurgitation present. Right ventricular systolic pressure is normal at < 35 mmHg. The pulmonic valve was not well visualized. The aortic root is dilated measuring 3.9cm. There is no pericardial effusion. CONCLUSIONS -------- 1. Atrial fibrillation. 2. Mild mitral annular calcification present. 3. Mild tricuspid regurgitation present. 4. Right ventricular systolic pressure is normal at < 35 mmHg. 5. The pulmonic valve was not well visualized. 6. The aortic root is dilated measuring 3.9cm. 7. There is no pericardial effusion. 8. This was a technically difficult study with suboptimal views. 9. There is mild concentric left ventricular hypertrophy. 10. Overall left ventricular systolic function is low-normal with, an EF between 50 - 55 %. 11. The left atrium is markedly dilated. 12. The right atrium is normal in size. 13. 1.5mg of Definity was utilized for enhancement of images 14. Aortic valve is trileaflet and is mildly thickened. 15. The mitral valve leaflets are mildly thickened. RAIL ENGINEER: Benja Diaz RDCS
[2016-06-14] MEDS: PANTOPRAZOLE 40 MG/10 ML VIAL IV SCH (09:14)
[2016-06-14] MEDS: ENOXAPARIN 60 MG/0.6 ML SYRINGE SQ SCH (09:14)
[2016-06-14] MEDS ORDERED: METOCLOPRAMIDE 5 MG/ML 2 ML VIAL IVP PRN (10:15)
[2016-06-14 10:18] LABS: Basophils % (A) 0 %; CH 29.8; CHCM 31.8; Eosinophils # (A) 0.1 k/uL (0-0.7); Eosinophils % (A) 2 %; HDW 2.92; HGB 14.9 gm/dL (13.0-17.5); Hypochromasia Slight; Luc # (Auto) 0.09; Luc % (Auto) 1; Lymphocytes # (A) 0.8 k/uL (1.0-4.8); Lymphocytes % (A) 10 %; MCH 30.4 pg (25.0-35.0); MCHC 32.3 g/dL (31.0-37.0); MCV 94.1 fL (80.0-100.0); Mean Platelet Volume 7.4; Monocytes # (A) 0.6 k/uL (0-1.0); Monocytes % (A) 8 %; Neutrophils # (A) 6.6 k/uL (1.3-7.7); Neutrophils % (A) 80 %; RBC 4.89 m/uL (4.30-5.90); WBC 8.3 k/uL (3.8-10.6); WBC (Perox) 8.37
[2016-06-14 10:23] LABS: Anion Gap 11 mmol/L; Blood Urea Nitrogen 20 mg/dL (9-20); Calcium 8.8 mg/dL (8.4-10.2); Carbon Dioxide 24 mmol/L (22-30); Chloride 104 mmol/L (98-107); Glucose 116 mg/dL (74-99); Non-African American GFR(MDRD) >60 (>60 ml/min/1.73 sqM); Potassium 4.6 mmol/L (3.5-5.1); Sodium 139 mmol/L (137-145)
[2016-06-14 11:13] VITALS: PULSE 85
--- NOTE | 2016-06-14 11:28 | P.PN ---
Subjective Principal diagnosis: Chronic atrial fibrillation This is a 61-year-old gentleman who was admitted to the hospital and underwent gastric sleeve operation. We're asked to see the patient because of atrial fibrillation. Atrial fibrillation appears to be chronic with controlled heart rate. His echocardiogram showed good LV function. His BNP level is within normal limits for his age. At this point patient is advised to continue with rate control and aspirin. We'll make an appointment to see Dr. Gonsales as an outpatient. He does have history of hypertension and mild coronary artery disease. In the future patient may become a candidate for anticoagulation therapy Objective - Vital Signs Vital signs: Vital Signs Temp 97.6 F 06/14/16 07:31 Pulse 62 06/14/16 10:49 Resp 16 06/14/16 08:00 BP 118/60 06/14/16 07:31 Pulse Ox 97 06/14/16 07:31 Intake & Output 06/13/16 06/14/16 06/14/16 18:59 06:59 18:59 Intake Total 300 300 Output Total 200 Balance 300 300 -200 Weight 165.108 kg Intake: IV 300 Sodium Chloride 0.9% 1, 300 000 ml @ 75 mls/hr IV . [id number] [facility] Rx#:[id number] Oral 300 Output: Urine 200 Other: Voiding Method Toilet Toilet Toilet # Voids 1 1 - Labs CBC & Chem 7: 06/14/16 06:27 06/14/16 06:27 Labs: Abnormal Lab Results - Last 24 Hours (Table) 06/14/16 06/14/16 Range/Units 06:27 06:27 Lymphocytes # 0.8 L (1.0-4.8) k/uL Glucose 116 H (74-99) mg/dL Assessment and Plan (1) Atrial fibrillation Status: Acute (2) Hypertension Status: Acute (3) Morbid obesity Status: Acute (4) CHF (congestive heart failure) Status: Acute Plan: His LV function is preserved. ProBNP level is within normal limits. Patient is feeling better. There is a less wheezing in the lungs. Patient could be discharged home on aspirin and rate controlling medication. Follow-up with Dr. Gonsales.
--- NOTE | 2016-06-14 14:07 | P.PN ---
Subjective Principal diagnosis: Morbid obesity Patient is a 61-year-old male with medical history significant for morbid obesity status post laparoscopic sleeve gastrectomy and laparoscopic hiatal hernia repair. Patient is evaluated on surgical unit where he is postop day #2. Patient is currently complaining of feeling bloated which is relieved with burping. Patient denies flatus or bowel movements. Patient denies chills , nausea, vomiting, shortness of breath, or chest pain. Tolerating clear liquids. Patient is urinating without difficulty. Patient has been up ambulating. Patient is urinating without difficulty. Patient is urinating without difficulty. Afebrile. BNP within normal limits at 687. Echocardiogram with preserved LV function with an EF between 50-55%. Objective - Vital Signs Vital signs: Vital Signs Temp 97.6 F 06/14/16 07:31 Pulse 62 06/14/16 10:49 Resp 16 06/14/16 08:00 BP 118/60 06/14/16 07:31 Pulse Ox 97 06/14/16 07:31 Intake & Output 06/13/16 06/14/16 06/14/16 18:59 06:59 18:59 Intake Total 300 300 Output Total 200 Balance 300 300 -200 Weight 165.108 kg Intake: IV 300 Sodium Chloride 0.9% 1, 300 000 ml @ 75 mls/hr IV . [id number] [facility] Rx#:[id number] Oral 300 Output: Urine 200 Other: Voiding Method Toilet Toilet Toilet # Voids 1 1 - Exam GENERAL: Pt awake and alert, well-appearing, well-nourished, and in no acute distress. HEAD: Atraumatic, normocephalic. EYES: Pupils equal, round, and reactive to light, extraocular movements intact, sclera anicteric, conjunctiva are normal. ENT: Moist mucous membranes. NECK:Normal range of motion, supple without lymphadenopathy or JVD. LUNGS: Breath sounds diminished with faint expiratory wheezing. HEART: Heart S1, S2, no S3 or S4. Irregularly irregular. No murmurs, rubs or gallops. Atrial fibrillation with controlled ventricular response on monitor. ABDOMEN: Soft, morbidly obese, mild incisional tenderness, mildly distended, hypoactive bowel sounds. No guarding. Laparoscopic incisions dry with Dermabond intact, no erythema or drainage. EXTREMITIES: 2+ peripheral pulses. No edema. No calf tenderness. NEUROLOGICAL: Pt oriented x 3. Cranial nerves II through XII grossly intact. Strength and sensation grossly intact. PSYCH: Normal mood, normal affect. SKIN: Warm, dry, intact. Normal turgor. No rashes or lesions. - Labs CBC & Chem 7: 06/14/16 06:27 06/14/16 06:27 Labs: Abnormal Lab Results - Last 24 Hours (Table) 06/14/16 06/14/16 Range/Units 06:27 06:27 Lymphocytes # 0.8 L (1.0-4.8) k/uL Glucose 116 H (74-99) mg/dL Assessment and Plan Plan: Impression and plan: 1. Morbid obesity status post laparoscopic sleeve gastrectomy and laparoscopic hiatal hernia repair on 06/12/2016. Continue surgical management by surgical team. 2. History of asthma, unknown type. 3. Acute hypoxic respiratory failure, multifactorial. Chest x-ray with evidence of pulmonary vascular congestion. Pulmonary consult requested, recommendations noted. Continue supplemental oxygen to keep oxygen saturation greater than 88%. Continue bronchodilators and Pulmicort. BiPAP has been discontinued. Continue incentive spirometry and pulmonary hygiene. 4. Chronic atrial fibrillation. Cardiology consult requested, recommendations noted. Patient with preserved LV function and BNP within normal limits. Patient to continue aspirin and follow-up with cardiology in the outpatient setting. 8. Hypertension. Continue lisinopril and hydrochlorothiazide. 9. GI prophylaxis. Continue Protonix. 10. DVT prophylaxis. Continue Lovenox. 11. Repeat CBC and BMP in a.m. From medical standpoint, patient stable for discharge when cleared by surgery and pulmonology. Patient will follow-up with Dr. Bhakta in the outpatient setting in 1 week. The above impression and plan have been discussed and directed by Dr. Bhakta. Robinson BROWN acting as scribe for Dr. Bhakta.
--- NOTE | 2016-06-14 15:51 | P.DS ---
Providers Date of admission: 06/12/16 11:32 Expected date of discharge: 06/14/16 Attending physician: Jesus Ferreira Consults: 06/12/16 15:09 Consult Physician Routine Consulting Provider: Cristo Bhakta Consult Reason/Comments: Medical management Do you want consulting provider notified?: Yes 06/12/16 18:11 Consult Physician Routine Consulting Provider: Piotr Lemus Consult Reason/Comments: respritory difficulty after surgery, asthma Do you want consulting provider notified?: Yes 06/13/16 12:17 Consult Physician Urgent Consulting Provider: Scar Lane Consult Reason/Comments: atrial fibrillation Do you want consulting provider notified?: Yes Primary care physician: Cristo Bhakta [place] Hospital Course: Patient is a 61-year-old male admitted to the hospital for elective laparoscopic sleeve gastrectomy for morbid obesity having failed outpatient conservative treatment. Patient also underwent laparoscopic hiatal hernia repair. Patient's medical history significant for atrial fibrillation, hypertension, asthma, and suspected obstructive sleep apnea. Patient tolerated procedure well. Postoperatively, patient had some respiratory difficulties and was placed on BiPAP for a short period of time. Chest x-ray did show some pulmonary vascular congestion. Cardiology and pulmonology consult were requested. Patient did undergo an upper GI series which showed no evidence of obstruction or leak. Patient improved significantly during hospitalization and was deemed stable for discharge to home from framing consultant with close follow-up in the outpatient setting. Discharge diagnoses: 1. Morbid obesity status post laparoscopic sleeve gastrectomy and laparoscopic hiatal hernia repair on 06/12/2016. 2. History of asthma, unknown type. 3. Acute hypoxic respiratory failure, multifactorial, resolved. 4. Chronic atrial fibrillation. 8. Hypertension. The above impression and plan have been discussed and directed by Dr. Ferreira. Robinson BROWN acting as scribe for Dr. Ferreira. Pertinent Studies: Upper GI series; chest x-ray; echocardiogram with Doppler Procedures: Laparoscopic sleeve gastrectomy; laparoscopic hiatal hernia repair Patient Condition at Discharge: Good Plan - Discharge Summary New Discharge Prescriptions: HYDROcodone/APAP 7.5-325MG [[place] 7.5-325] 1 tab PO Q6HR PRN #28 tab PRN Reason: Pain Omeprazole [PriLOSEC] 40 mg PO DAILY #30 capsule. Ondansetron Odt [Zofran ODT] 8 mg PO Q8HR #20 tab Sucralfate [Carafate] 1 gm PO ACHS #90 tablet Discharge Medication List Aspirin [Adult Low Dose Aspirin EC] 81 mg PO DAILY 01/02/16 [History] Lisinopril-Hctz 20-12.5 mg [Zestoretic 20-12.5] 1 tab PO DAILY 01/02/16 [History ] Albuterol Nebulized [Ventolin Nebulized] 2.5 mg INHALATION RT-DAILY PRN [History] HYDROcodone/APAP 7.5-325MG [[place] 7.5-325] 1 tab PO Q6HR PRN #28 tab 06/12/16 [ Rx] Omeprazole [PriLOSEC] 40 mg PO DAILY #30 capsule. 06/12/16 [Rx] Ondansetron Odt [Zofran ODT] 8 mg PO Q8HR #20 tab 06/12/16 [Rx] Sucralfate [Carafate] 1 gm PO ACHS #90 tablet 06/12/16 [Rx] Follow up Appointment(s)/Referral(s): Helder Gonsales MD [STAFF PHYSICIAN] - 1 Week Cristo Bhakta DO [Primary Care Provider] - 1 Week Michelle Crawford DO [Doctor of Osteopathic Medicine] - 1 Week Jesus Ferreira MD [STAFF PHYSICIAN] - 06/17/16 (Follow-up in bariatric center) Patient Instructions/Handouts: Laparoscopic Hiatal Hernia Repair (DC), Laparoscopic Sleeve Gastrectomy (DC) Activity/Diet/Wound Care/Special Instructions: No heavy lifting, pushing, or pulling items greater than 10 pounds. Bariatric diet as previously directed. Shower daily, no soaking in bath tubs, pools, or hot tubs. No driving while taking pain medication. Notify surgeon with any signs or symptoms of infection, increased pain, or not tolerating diet. Discharge Disposition: HOME SELF-CARE
--- NOTE | 2016-06-14 16:07 | P.PN ---
Subjective Principal diagnosis: Gastric sleeve Patient seen and examined. Patient states his breathing is much better today. He is c/o not passing gas and no bowel movement. The patient is otherwise doing well on RA. Objective - Vital Signs Vital signs: Vital Signs Temp 97.6 F 06/14/16 07:31 Pulse 62 06/14/16 10:49 Resp 16 06/14/16 08:00 BP 118/60 06/14/16 07:31 Pulse Ox 97 06/14/16 07:31 Intake & Output 06/13/16 06/14/16 06/14/16 18:59 06:59 18:59 Intake Total 300 300 Output Total 200 Balance 300 300 -200 Weight 165.108 kg Intake: IV 300 Sodium Chloride 0.9% 1, 300 000 ml @ 75 mls/hr IV . [id number] [facility] Rx#:[id number] Oral 300 Output: Urine 200 Other: Voiding Method Toilet Toilet Toilet # Voids 1 1 - Exam Gen.: Patient is alert and oriented 3, no acute distress, morbidly obese Cardiovascular: Regular rate and rhythm, S1/S2 Lungs: Diminished sounds bilaterally Abdomen: Soft, mildly diffusely tender to palpation, positive bowel sounds Extremities: 1+ pitting edema - Labs CBC & Chem 7: 06/14/16 06:27 06/14/16 06:27 Labs: Abnormal Lab Results - Last 24 Hours (Table) 06/14/16 06/14/16 Range/Units 06:27 06:27 Lymphocytes # 0.8 L (1.0-4.8) k/uL Glucose 116 H (74-99) mg/dL Assessment and Plan Plan: Acute hypoxic respiratory failure, multifactorial Morbid obesity, likely underlying obstructive sleep apnea History of asthma, unknown type Pulmonary vascular congestion on chest x-ray Status post elective laparoscopic sleeve gastrectomy History of atrial fibrillation History of congestive heart failure, unknown type and ejection fraction Hypertension O2 to maintain saturation greater than equal to 88% Echocardiogram Patient is encouraged to follow-up outpatient for PSG and PFT Pain control Incentive spirometry and pulmonary hygiene I's and O's and daily weights DC BiPAP Bronchodilators and Pulmicort GI and DVT prophylaxis Ok to DC from pulmonary standpoint with outpatient follow up
[2016-06-15] MEDS ORDERED: LISINOPRIL-HCTZ 20-12.5 MG 1 EACH TAB PO SCH (09:00)
[2016-06-15] MEDS ORDERED: ASPIRIN 81 MG CHEW PO SCH (09:00)
== END 2016-06-14 17:25 | disposition home or self-care (01) | DRG 619 ==
LOC: 2ORWHC 06-12 11:32 → 3SUR 06-12 14:47
PROVIDERS: ADMIT Surgery; ATTEND Surgery
PROC: 0BQS4ZZ (ICD-10-PCS; 2016-06-12)
PROC: 0BQR4ZZ (ICD-10-PCS; 2016-06-12)
PROC: 0DB64Z3 Excision of Stomach, Percutaneous Endoscopic Approach, Vertical (ICD-10-PCS; principal; 2016-06-12 13:00)
DX: E66.01 Morbid (severe) obesity due to excess calories (principal); J96.01 Acute respiratory failure with hypoxia; I50.9 Heart failure, unspecified; I11.0 Hypertensive heart disease with heart failure; I48.2 Chronic atrial fibrillation; E83.42 Hypomagnesemia; E87.5 Hyperkalemia; J45.909 Unspecified asthma, uncomplicated; Z68.42 Body mass index [BMI] 45.0-49.9, adult; J44.9 Chronic obstructive pulmonary disease, unspecified; G47.33 Obstructive sleep apnea (adult) (pediatric); I25.10 Atherosclerotic heart disease of native coronary artery without angina pectoris; Z79.82 Long term (current) use of aspirin; Z79.899 Other long term (current) drug therapy
CPT/HCPCS: 36620; 71020; 74240; 80048; 80051; 82310; 82565; 83735; 83880; 84100; 84520; 85025; 88307; 93306; 94640; 94760

== ENCOUNTER → 2016-06-17 | Outpatient (CLI) | payer BC ==
[2016-06-17 15:27] VITALS: BP 149/91; PULSE 80; RESP 16; TEMP 98.3; BMI 51.5
--- NOTE | 2016-06-17 16:24 | P.HPBAR ---
Bariatric H&P - History & Physicial H&P Date: 06/17/16 History & Physicial: Visit/CC: Band Removal follow-up Patient initial contact: Initial weight: 171.033 kg Initial weight in pounds: 377.06 Height: 5 ft 10.5 in Initial BMI: 53.3 Last weight: Current weight: 165.306 kg Current weight in pounds: 364.00 Current BMI: 51.5 [place] body weight (based on NIH guidelines): 76.657 kg Excess body weight loss: 6.2% The patient is a 61 year-old M who presents for Bariatric Assessment. The patient is one-week status post sleeve gastrectomy. He is doing quite well. He 's lost approximately 12 pounds since his surgery. He denies any significant pain. He's had minimal GERD symptoms Past Medical History Past Medical History: Atrial Fibrillation, Hypertension, Respiratory Disorder History of Any Multi-Drug Resistant Organisms: None Reported Past Surgical History: Appendectomy, Tonsillectomy Additional Past Surgical History / Comment(s): Colonoscopy Past Anesthesia/Blood Transfusion Reactions: No Reported Reaction Past Psychological History: No Psychological Hx Reported Smoking Status: Never smoker Past Alcohol Use History: Occasional Past Drug Use History: None Reported - Past Family History Mother Family Medical History: Deep Vein Thrombosis (DVT) Surgical - Exam Vital Signs Temp Pulse Resp BP 98.3 F 80 16 149/91 06/17/16 15:13 06/17/16 15:13 06/17/16 15:13 06/17/16 15:13 - General well developed, no distress - Eyes PERRL - ENT normal pinna - Neck no masses - Respiratory normal expansion - Cardiovascular Rhythm: regular - Abdomen Abdomen: soft, non tender Bariatric Assessment & Plan Plan: Status post sleeve yesterday. Patient's morbid obesity is improving. He'll follow-up one week. Bariatric Checklist Checklist: Plan: Checklist: EGD: 1. Hiatal hernia: 2. H. Pylori: HgbA1c: Vitamin D: Smoking: Never smoker Primary care physician referral: Dr. Bhakta Psychiatry clearance: Cardiology clearance: Sleep study: Diet journal: VTE risk score: VTE risk level: Rehab needs at discharge:
== END | disposition home or self-care (01) ==
LOC: BARWHC3 14:44
PROVIDERS: ATTEND Surgery
DX: Z48.815 Encounter for surgical aftercare following surgery on the digestive system (principal); Z71.3 Dietary counseling and surveillance; Z68.43 Body mass index [BMI] 50.0-59.9, adult; K21.9 Gastro-esophageal reflux disease without esophagitis
CPT/HCPCS: 99211

== ENCOUNTER → 2016-06-24 | Outpatient (CLI) | payer BC ==
[2016-06-24 15:24] VITALS: BP 145/76; PULSE 63; RESP 16; TEMP 97.8; BMI 49.8
--- NOTE | 2016-06-24 16:15 | P.HPBAR ---
Bariatric H&P - History & Physicial H&P Date: 06/24/16 History & Physicial: Visit/CC: follow up Patient initial contact: Initial weight: 171.033 kg Initial weight in pounds: 377.06 Height: 5 ft 10.5 in Initial BMI: 53.3 Last weight: Current weight: 159.665 kg Current weight in pounds: 352.00 Current BMI: 49.8 [place] body weight (based on NIH guidelines): 76.657 kg Excess body weight loss: 12.0% The patient is a 61 year-old M who presents for Bariatric Assessment. The patient presents for sleeve gastrectomy follow-up. He is doing quite well. He is also another 12 pounds. He is lost 20 pounds since surgery. He's had minimal GERD symptoms. Past Medical History Past Medical History: Atrial Fibrillation, Hypertension, Respiratory Disorder History of Any Multi-Drug Resistant Organisms: None Reported Past Surgical History: Appendectomy, Tonsillectomy Additional Past Surgical History / Comment(s): Colonoscopy Past Anesthesia/Blood Transfusion Reactions: No Reported Reaction Past Psychological History: No Psychological Hx Reported Smoking Status: Never smoker Past Alcohol Use History: Occasional Past Drug Use History: None Reported - Past Family History Mother Family Medical History: Deep Vein Thrombosis (DVT) Surgical - Exam Vital Signs Temp Pulse Resp BP 97.8 F 63 16 145/76 06/24/16 15:17 06/24/16 15:17 06/24/16 15:17 06/24/16 15:17 - General well developed, no distress - Eyes PERRL - ENT normal pinna - Neck no masses - Respiratory normal expansion - Cardiovascular Rhythm: regular - Abdomen Abdomen: soft, non tender Bariatric Assessment & Plan Plan: Status post sleeve yesterday. Patient is doing quite well. He had excellent weight loss. His GERD symptoms will be observed. Bariatric Checklist Checklist: Plan: Checklist: EGD: 1. Hiatal hernia: 2. H. Pylori: HgbA1c: Vitamin D: Smoking: Never smoker Primary care physician referral: Dr. Bhakta Psychiatry clearance: Cardiology clearance: Sleep study: Diet journal: VTE risk score: VTE risk level: Rehab needs at discharge:
== END | disposition home or self-care (01) ==
LOC: BARWHC3 14:15
PROVIDERS: ATTEND Surgery
DX: Z48.815 Encounter for surgical aftercare following surgery on the digestive system (principal); Z71.3 Dietary counseling and surveillance; K21.9 Gastro-esophageal reflux disease without esophagitis; Z98.84 Bariatric surgery status; Z68.42 Body mass index [BMI] 45.0-49.9, adult
CPT/HCPCS: 99211

== ENCOUNTER → 2016-07-08 | Outpatient (CLI) | payer BC ==
[2016-07-08 14:28] VITALS: BP 110/59; PULSE 61; RESP 16; TEMP 98.2; BMI 48.6
--- NOTE | 2016-07-08 15:05 | P.HPBAR ---
Bariatric H&P - History & Physicial H&P Date: 07/08/16 History & Physicial: Visit/CC: Sleeve follow-up Patient initial contact: Initial weight: 171.033 kg Initial weight in pounds: 377.06 Height: 5 ft 10.5 in Initial BMI: 53.3 Last weight: Current weight: 156.121 kg Current weight in pounds: 344.00 Current BMI: 48.6 [place] body weight (based on NIH guidelines): 76.657 kg Excess body weight loss: 15.8% The patient is a 61 year-old M who presents for Bariatric Assessment. The patient is status post sleeve gastrectomy. He is lost approximately 33 pounds since his surgery. He is doing quite well. He's had minimal GERD symptoms. Review of Systems Constitutional: Reports as per HPI Past Medical History Past Medical History: Atrial Fibrillation, Hypertension, Respiratory Disorder History of Any Multi-Drug Resistant Organisms: None Reported Past Surgical History: Appendectomy, Tonsillectomy Additional Past Surgical History / Comment(s): Colonoscopy Past Anesthesia/Blood Transfusion Reactions: No Reported Reaction Past Psychological History: No Psychological Hx Reported Smoking Status: Never smoker Past Alcohol Use History: Occasional Past Drug Use History: None Reported - Past Family History Mother Family Medical History: Deep Vein Thrombosis (DVT) Surgical - Exam Vital Signs Temp Pulse Resp BP 98.2 F 61 16 110/59 07/08/16 14:24 07/08/16 14:24 07/08/16 14:24 07/08/16 14:24 - General well developed, no distress - Eyes PERRL - ENT normal pinna - Neck no masses - Respiratory normal expansion - Cardiovascular Rhythm: regular - Abdomen Abdomen: soft, non tender Bariatric Assessment & Plan Plan: Status post sleeve yesterday. Patient is doing quite well. He will be seen Dr. Bhakta regarding his hypertensive medications. His GERD symptoms will be observed this time. He will continue omeprazole. Bariatric Checklist Checklist: Plan: Checklist: EGD: 1. Hiatal hernia: 2. H. Pylori: HgbA1c: Vitamin D: Smoking: Never smoker Primary care physician referral: Dr. Bhakta Psychiatry clearance: Cardiology clearance: Sleep study: Diet journal: VTE risk score: VTE risk level: Rehab needs at discharge:
== END | disposition home or self-care (01) ==
LOC: BARWHC3 13:33
PROVIDERS: ATTEND Surgery
DX: Z48.815 Encounter for surgical aftercare following surgery on the digestive system (principal); Z71.3 Dietary counseling and surveillance; Z98.84 Bariatric surgery status; Z68.42 Body mass index [BMI] 45.0-49.9, adult; K21.9 Gastro-esophageal reflux disease without esophagitis; Z79.899 Other long term (current) drug therapy; I10 Essential (primary) hypertension
CPT/HCPCS: 99211

== ENCOUNTER → 2016-08-19 | Outpatient (CLI) | payer BC ==
[2016-08-19 09:48] VITALS: BP 137/74; PULSE 58; TEMP 97.9; BMI 45.7
--- NOTE | 2016-08-19 10:24 | P.HPBAR ---
Bariatric H&P - History & Physicial H&P Date: 08/19/16 History & Physicial: Visit/CC: two month follow up visit Patient initial contact: Initial weight: 171.033 kg Initial weight in pounds: 377.06 Height: 5 ft 10.5 in Initial BMI: 53.3 Last weight: Current weight: 146.601 kg Current weight in pounds: 323.20 Current BMI: 45.7 [place] body weight (based on NIH guidelines): 76.657 kg Excess body weight loss: 25.8% The patient is a 61 year-old M who presents for Bariatric Assessment. Patient presents for sleeve gastrectomy follow-up. He is doing quite well. He has lost approximately 55 pounds since surgery. He has some mild GERD. Past Medical History Past Medical History: Atrial Fibrillation, Hypertension, Respiratory Disorder History of Any Multi-Drug Resistant Organisms: None Reported Past Surgical History: Appendectomy, Tonsillectomy Additional Past Surgical History / Comment(s): Colonoscopy Past Anesthesia/Blood Transfusion Reactions: No Reported Reaction Past Psychological History: No Psychological Hx Reported Smoking Status: Never smoker Past Alcohol Use History: Occasional Past Drug Use History: None Reported - Past Family History Mother Family Medical History: Deep Vein Thrombosis (DVT) Surgical - Exam Vital Signs Temp Pulse BP 97.9 F 58 L 137/74 08/19/16 09:46 08/19/16 09:46 08/19/16 09:46 - General well developed, no distress - Eyes PERRL - Abdomen Abdomen: soft, non tender Bariatric Assessment & Plan Plan: The patient is doing well postoperatively. His last 55 pounds. The patient will follow-up in one month. His GERD symptoms to be managed with omeprazole. Bariatric Checklist Checklist: Plan: Checklist: EGD: 1. Hiatal hernia: 2. H. Pylori: HgbA1c: Vitamin D: Smoking: Never smoker Primary care physician referral: Dr. Bhakta Psychiatry clearance: Cardiology clearance: Sleep study: Diet journal: VTE risk score: VTE risk level: Rehab needs at discharge:
== END | disposition home or self-care (01) ==
LOC: BARWHC3 09:17
PROVIDERS: ATTEND Surgery
DX: Z48.815 Encounter for surgical aftercare following surgery on the digestive system (principal); E66.01 Morbid (severe) obesity due to excess calories; K21.9 Gastro-esophageal reflux disease without esophagitis; Z71.3 Dietary counseling and surveillance; Z68.42 Body mass index [BMI] 45.0-49.9, adult; Z98.84 Bariatric surgery status; Z79.899 Other long term (current) drug therapy
CPT/HCPCS: 97803; 99211

== ENCOUNTER → 2016-09-30 | Outpatient (CLI) | payer BC ==
[2016-09-30 15:32] VITALS: BP 114/62; PULSE 102; RESP 16; TEMP 97.7; BMI 43.2
[2016-09-30 16:12] LABS: ALT 46 U/L (21-72); AST 37 U/L (17-59); Alkaline Phosphatase 66 U/L (38-126); Anion Gap 12 mmol/L; Blood Urea Nitrogen 12 mg/dL (9-20); Calcium 10.3 mg/dL (8.4-10.2); Carbon Dioxide 26 mmol/L (22-30); Chloride 103 mmol/L (98-107); Glucose 98 mg/dL (74-99); Non-African American GFR(MDRD) >60 (>60 ml/min/1.73 sqM); Potassium 4.5 mmol/L (3.5-5.1); Sodium 141 mmol/L (137-145); Total Bilirubin 2.7 mg/dL (0.2-1.3); Total Protein 6.7 g/dL (6.3-8.2)
[2016-09-30 16:29] LABS: CH 31.3; CHCM 34.2; HCT 49.3 % (39.0-53.0); HDW 3.14; HGB 16.2 gm/dL (13.0-17.5); MCH 30.2 pg (25.0-35.0); MCHC 32.9 g/dL (31.0-37.0); MCV 91.9 fL (80.0-100.0); Mean Platelet Volume 7.3; RBC 5.36 m/uL (4.30-5.90); RDW 13.8 % (11.5-15.5); WBC 8.1 k/uL (3.8-10.6)
--- NOTE | 2016-09-30 16:31 | P.HPBAR ---
Bariatric H&P - History & Physicial H&P Date: 09/30/16 History & Physicial: Visit/CC: sleeve follow-up Patient initial contact: Initial weight: 171.033 kg Initial weight in pounds: 377.06 Height: 5 ft 10.5 in Initial BMI: 53.3 Last weight: Current weight: 138.516 kg Current weight in pounds: 305.00 Current BMI: 43.2 [place] body weight (based on NIH guidelines): 76.657 kg Excess body weight loss: 34.6% The patient is a 61 year-old M who presents for Bariatric Assessment. Patient presents for sleeve gastrectomy. He's had good weight loss. He's had minimal GERD symptoms. Past Medical History Past Medical History: Atrial Fibrillation, Hypertension, Respiratory Disorder History of Any Multi-Drug Resistant Organisms: None Reported Past Surgical History: Appendectomy, Tonsillectomy Additional Past Surgical History / Comment(s): Colonoscopy Past Anesthesia/Blood Transfusion Reactions: No Reported Reaction Past Psychological History: No Psychological Hx Reported Smoking Status: Never smoker Past Alcohol Use History: Occasional Past Drug Use History: None Reported - Past Family History Mother Family Medical History: Deep Vein Thrombosis (DVT) Surgical - Exam Vital Signs Temp Pulse Resp BP 97.7 F 102 H 16 114/62 09/30/16 15:29 09/30/16 15:29 09/30/16 15:29 09/30/16 15:29 - General well developed, no distress - Eyes PERRL - ENT normal pinna - Neck no masses - Abdomen Abdomen: soft, non tender Results - Labs 09/30/16 15:50 Abnormal Lab Results - Last 24 Hours (Table) 09/30/16 Range/Units 15:50 Calcium 10.3 H (8.4-10.2) mg/dL Total Bilirubin 2.7 H (0.2-1.3) mg/dL Diabetes panel 09/30/16 Range/Units 15:50 Sodium 141 (137-145) mmol/L Potassium 4.5 (3.5-5.1) mmol/L Chloride 103 (98-107) mmol/L Carbon Dioxide 26 (22-30) mmol/L BUN 12 (9-20) mg/dL Creatinine 1.00 (0.66-1.25) mg/dL Glucose 98 (74-99) mg/dL Calcium 10.3 H (8.4-10.2) mg/dL AST 37 (17-59) U/L ALT 46 (21-72) U/L Alkaline Phosphatase 66 (38-126) U/L Total Protein 6.7 (6.3-8.2) g/dL Albumin 4.2 (3.5-5.0) g/dL Calcium panel 09/30/16 Range/Units 15:50 Calcium 10.3 H (8.4-10.2) mg/dL Albumin 4.2 (3.5-5.0) g/dL Pituitary panel 09/30/16 Range/Units 15:50 Sodium 141 (137-145) mmol/L Potassium 4.5 (3.5-5.1) mmol/L Chloride 103 (98-107) mmol/L Carbon Dioxide 26 (22-30) mmol/L BUN 12 (9-20) mg/dL Creatinine 1.00 (0.66-1.25) mg/dL Glucose 98 (74-99) mg/dL Calcium 10.3 H (8.4-10.2) mg/dL Adrenal panel 09/30/16 Range/Units 15:50 Sodium 141 (137-145) mmol/L Potassium 4.5 (3.5-5.1) mmol/L Chloride 103 (98-107) mmol/L Carbon Dioxide 26 (22-30) mmol/L BUN 12 (9-20) mg/dL Creatinine 1.00 (0.66-1.25) mg/dL Glucose 98 (74-99) mg/dL Calcium 10.3 H (8.4-10.2) mg/dL Total Bilirubin 2.7 H (0.2-1.3) mg/dL AST 37 (17-59) U/L ALT 46 (21-72) U/L Alkaline Phosphatase 66 (38-126) U/L Total Protein 6.7 (6.3-8.2) g/dL Albumin 4.2 (3.5-5.0) g/dL Bariatric Assessment & Plan Plan: Patient status post sleeve gastric. He is loss approximate 75 pounds. He is doing quite well. His GERD symptoms will be observed. The patient will be followed up in 1 month. Bariatric Checklist Checklist: Plan: Checklist: EGD: 1. Hiatal hernia: 2. H. Pylori: HgbA1c: Vitamin D: Smoking: Never smoker Primary care physician referral: Dr. Bhakta Psychiatry clearance: Cardiology clearance: Sleep study: Diet journal: VTE risk score: VTE risk level: Rehab needs at discharge:
[2016-09-30 17:20] LABS: Vitamin B12 422 pg/mL (239-931)
[2016-09-30 21:04] LABS: Hemoglobin A1C 4.8 % (4.2-6.1)
== END | disposition home or self-care (01) ==
LOC: BARWHC3 15:21
PROVIDERS: ATTEND Surgery
DX: K21.9 Gastro-esophageal reflux disease without esophagitis (principal); E66.01 Morbid (severe) obesity due to excess calories; E44.0 Moderate protein-calorie malnutrition; Z98.84 Bariatric surgery status
CPT/HCPCS: 80053; 82306; 82607; 83036; 84443; 85027; 99211

== ENCOUNTER → 2016-12-02 | Outpatient (CLI) | payer BC ==
[2016-12-02 14:53] VITALS: BP 105/62; PULSE 61; RESP 16; TEMP 98.3; BMI 40.8
--- NOTE | 2016-12-02 16:51 | P.HPBAR ---
Bariatric H&P - History & Physicial H&P Date: 12/02/16 History & Physicial: Visit/CC: Sleeve follow-up Patient initial contact: Initial weight: 171.033 kg Initial weight in pounds: 377.06 Height: 5 ft 10.5 in Initial BMI: 53.3 Last weight: 305 Current weight: 131.088 kg Current weight in pounds: 289.00 Current BMI: 40.8 [place] body weight (based on NIH guidelines): 76.657 kg Excess body weight loss: 42.3% The patient is a 61 year-old M who presents for Bariatric Assessment. Patient presents for sleeve gastric a fall. He is doing quite well. He's had some minimal GERD symptoms. Past Medical History Past Medical History: Atrial Fibrillation, Hypertension, Respiratory Disorder Additional Past Medical History / Comment(s): asthma History of Any Multi-Drug Resistant Organisms: None Reported Past Surgical History: Appendectomy, Tonsillectomy Additional Past Surgical History / Comment(s): Colonoscopy Past Anesthesia/Blood Transfusion Reactions: No Reported Reaction Past Psychological History: No Psychological Hx Reported Smoking Status: Never smoker Past Alcohol Use History: Occasional Past Drug Use History: None Reported - Past Family History Mother Family Medical History: Deep Vein Thrombosis (DVT) Surgical - Exam Vital Signs Temp Pulse Resp BP 98.3 F 61 16 105/62 12/02/16 14:51 12/02/16 14:51 12/02/16 14:51 12/02/16 14:51 - General well developed - Abdomen Abdomen: soft Hernia: inguinal, epigastric, reducible Bariatric Assessment & Plan Plan: The patient doing well from sleep yesterday. He is lost approximately 94 pounds. We will plan on repairing his inguinal and ventral hernia in the fall. He'll follow-up in one month. His GERD symptoms are minimal observed. Bariatric Checklist Checklist: Plan: Checklist: EGD: 1. Hiatal hernia: 2. H. Pylori: HgbA1c: Vitamin D: Smoking: Never smoker Primary care physician referral: Dr. Bhakta Psychiatry clearance: Cardiology clearance: Sleep study: Diet journal: VTE risk score: VTE risk level: Rehab needs at discharge:
== END | disposition home or self-care (01) ==
LOC: BARWHC3 14:14
PROVIDERS: ATTEND Surgery
DX: K95.09 Other complications of gastric band procedure (principal); E66.01 Morbid (severe) obesity due to excess calories; K21.9 Gastro-esophageal reflux disease without esophagitis; Z71.3 Dietary counseling and surveillance; Z68.41 Body mass index [BMI] 40.0-44.9, adult; Z90.3 Acquired absence of stomach [part of]
CPT/HCPCS: 97803; 99211

== ENCOUNTER → 2016-12-23 | Outpatient (CLI) | payer BC ==
[2016-12-23 15:59] VITALS: BP 107/58; PULSE 79; RESP 16; TEMP 98.1; BMI 40.1
== END | disposition home or self-care (01) ==
LOC: BARWHC3 15:15
PROVIDERS: ATTEND Surgery
DX: E66.01 Morbid (severe) obesity due to excess calories (principal); Z68.41 Body mass index [BMI] 40.0-44.9, adult
CPT/HCPCS: 99211

== ENCOUNTER → 2017-03-17 | Outpatient (CLI) | payer BC ==
[2017-03-17 15:00] VITALS: BP 99/64; PULSE 74; RESP 16; TEMP 97.1; BMI 38.2
--- NOTE | 2017-03-17 16:46 | P.HPBAR ---
Bariatric H&P - History & Physicial H&P Date: 03/17/17 History & Physicial: Visit/CC: sleeve follow-up Patient initial contact: Initial weight: 171.033 kg Initial weight in pounds: 377.06 Height: 5 ft 10.5 in Initial BMI: 53.3 Last weight: Current weight: 122.47 kg Current weight in pounds: 270.00 Current BMI: 38.2 [place] body weight (based on NIH guidelines): 76.657 kg Excess body weight loss: 51.4% The patient is a 62 year-old M who presents for Bariatric Assessment. The patient presents today for sleeve gastric a fall. He is doing very well. He's had some minimal GERD. He states he is decreasing his blood pressure medication. Past Medical History Past Medical History: Atrial Fibrillation, Hypertension, Respiratory Disorder Additional Past Medical History / Comment(s): asthma History of Any Multi-Drug Resistant Organisms: None Reported Past Surgical History: Appendectomy, Tonsillectomy Additional Past Surgical History / Comment(s): Colonoscopy Past Anesthesia/Blood Transfusion Reactions: No Reported Reaction Past Psychological History: No Psychological Hx Reported Smoking Status: Never smoker Past Alcohol Use History: Occasional Past Drug Use History: None Reported - Past Family History Mother Family Medical History: Deep Vein Thrombosis (DVT) Surgical - Exam Vital Signs Temp Pulse Resp BP 97.1 F L 74 16 99/64 03/17/17 14:56 03/17/17 14:56 03/17/17 14:56 03/17/17 14:56 - General well developed, no distress - Eyes PERRL - ENT normal pinna - Neck no masses - Respiratory normal expansion - Abdomen Incarcerated umbilical hernia, right inguinal hernia Bariatric Assessment & Plan Plan: Status post sleeve gastrectomy. The patient is doing well. He will see Dr. Bhakta in follow-up for his hypertension. The patient may need to take his blood pressure medication every other day. He has a known umbilical and right inguinal hernia. He'll be scheduled for laparoscopic robotic-assisted repair of umbilical and right we'll hernia on April 30. Bariatric Checklist Checklist: Plan: Checklist: EGD: 1. Hiatal hernia: 2. H. Pylori: HgbA1c: Vitamin D: Smoking: Never smoker Primary care physician referral: Dr. Bhakta Psychiatry clearance: Cardiology clearance: Sleep study: Diet journal: VTE risk score: VTE risk level: Rehab needs at discharge:
== END | disposition home or self-care (01) ==
LOC: BARWHC3 14:44
PROVIDERS: ATTEND Surgery
DX: Z09 Encounter for follow-up examination after completed treatment for conditions other than malignant neoplasm (principal); I48.91 Unspecified atrial fibrillation; I10 Essential (primary) hypertension; Z98.84 Bariatric surgery status
CPT/HCPCS: 99211

== ENCOUNTER → 2017-06-09 | Outpatient (CLI) | payer BC ==
[2017-06-09 13:56] VITALS: BP 127/60; PULSE 84; RESP 15; TEMP 98.7; BMI 37.0
--- NOTE | 2017-06-09 15:02 | P.HPBAR ---
Bariatric H&P - History & Physicial H&P Date: 06/09/17 History & Physicial: Visit/CC: one year f/u (Sleeve sx 06/14/16) Patient initial contact: Initial weight: 171.033 kg Initial weight in pounds: 377.06 Height: 5 ft 10.5 in Initial BMI: 53.3 Last weight: 270 Current weight: 118.75 kg Current weight in pounds: 261.80 Current BMI: 37.0 [place] body weight (based on NIH guidelines): 76.657 kg Excess body weight loss: 55.3% The patient is a 62 year-old M who presents for Bariatric Assessment. The patient presents today for sleeve gastric fold. He is doing quite well. He's had some mild GERD. Past Medical History Past Medical History: Atrial Fibrillation, Hypertension, Respiratory Disorder Additional Past Medical History / Comment(s): asthma History of Any Multi-Drug Resistant Organisms: None Reported Past Surgical History: Appendectomy, Hernia Repair, Tonsillectomy Additional Past Surgical History / Comment(s): Colonoscopy, Inguinal hernia repair April 2017 Past Anesthesia/Blood Transfusion Reactions: No Reported Reaction Past Psychological History: No Psychological Hx Reported Smoking Status: Never smoker Past Alcohol Use History: Occasional Past Drug Use History: None Reported - Past Family History Mother Family Medical History: Deep Vein Thrombosis (DVT) Surgical - Exam Vital Signs Temp Pulse Resp BP 98.7 F 84 15 127/60 06/09/17 12:47 06/09/17 12:47 06/09/17 12:47 06/09/17 12:47 - General well developed, no distress - Eyes PERRL - ENT normal pinna, normal nares - Neck no masses - Respiratory normal expansion - Cardiovascular Rhythm: regular - Abdomen Abdomen: soft, non tender Bariatric Assessment & Plan Plan: Status post sleeve yesterday. Patient is doing well. His GERD symptoms are minimal be observed. He'll follow-up in 2 months. Bariatric Checklist Checklist: Plan: Checklist: EGD: 1. Hiatal hernia: 2. H. Pylori: HgbA1c: Vitamin D: Smoking: Never smoker Primary care physician referral: Dr. Bhakta Psychiatry clearance: Cardiology clearance: Sleep study: Diet journal: VTE risk score: VTE risk level: Rehab needs at discharge:
[2017-06-09 15:20] LABS: HCT 50.5 % (39.0-53.0); HGB 16.4 gm/dL (13.0-17.5); MCH 30.4 pg (25.0-35.0); MCHC 32.5 g/dL (31.0-37.0); MCV 93.8 fL (80.0-100.0); Mean Platelet Volume 7.3; Platelet Count 207 k/uL (150-450); RBC 5.38 m/uL (4.30-5.90); RDW 14.1 % (11.5-15.5); WBC 7.2 k/uL (3.8-10.6)
[2017-06-09 15:29] LABS: ALT 28 U/L (21-72); AST 26 U/L (17-59); Albumin 4.2 g/dL (3.5-5.0); Alkaline Phosphatase 73 U/L (38-126); Anion Gap 10 mmol/L; Blood Urea Nitrogen 15 mg/dL (9-20); Calcium 9.7 mg/dL (8.4-10.2); Carbon Dioxide 28 mmol/L (22-30); Chloride 104 mmol/L (98-107); Glucose 82 mg/dL (74-99); Potassium 4.3 mmol/L (3.5-5.1); Sodium 142 mmol/L (137-145); Total Bilirubin 1.5 mg/dL (0.2-1.3); Total Protein 6.9 g/dL (6.3-8.2)
[2017-06-09 19:28] LABS: Vitamin D 25 Hydroxy 23.6 ng/mL (30.0-100.0)
== END | disposition home or self-care (01) ==
LOC: BARWHC3 11:46
PROVIDERS: ATTEND Surgery
DX: Z48.815 Encounter for surgical aftercare following surgery on the digestive system (principal); K95.09 Other complications of gastric band procedure; K21.9 Gastro-esophageal reflux disease without esophagitis; I48.91 Unspecified atrial fibrillation; I10 Essential (primary) hypertension; J45.909 Unspecified asthma, uncomplicated; F10.20 Alcohol dependence, uncomplicated; Z98.890 Other specified postprocedural states; Z98.84 Bariatric surgery status
CPT/HCPCS: 36415; 80053; 82306; 82607; 84425; 84443; 85027; 97803; 99211

== ENCOUNTER 2019-03-13 10:51 | Inpatient (IN) | payer BC, OTHER ==
[2019-03-13] MEDS ORDERED: MAGNESIUM SULFATE-D5W PMX 1 GM in DEXTROSE/WATER 1 100ML.BAG IVPB STA (11:17)
[2019-03-13] MEDS ORDERED: methylPREDNISolone SOD SUCCI 125 MG/2 ML VIAL IV STA (11:17)
[2019-03-13] MEDS ORDERED: IPRATROPIUM-ALBUTEROL 3 ML NEB INHALATION STA ×2 (11:17→13:08)
--- NOTE | 2019-03-13 11:46 | ED ---
SOB HPI - General Chief Complaint: Shortness of Breath Stated Complaint: SHALINI Time Seen by Provider: 03/13/19 11:05 Source: patient Mode of arrival: ambulatory Limitations: no limitations - History of Present Illness Initial Comments: The patient is a 64-year-old male who presents to the emergency room with reported shortness of breath. He states he had a similar episode approximately 5 years ago. Reports that he was never given a diagnosis for his respiratory issues. Denies a history of COPD or asthma. Does not use home oxygen. Hasn't had any issues with his breathing recently. Denies a cardiac history. No history of DE or stent placement. Does have a history of A. fib. Not currently on any anticoagulation. And reports that he quit smoking several years ago. 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 As of one week ago the patient had increased shortness of breath. Denies any recent travel or sick contacts. Does admit to a productive cough. No fevers but does report night sweats. Denies chest pain or palpitations. No nausea or vomiting. Denies any lower extremity edema. No calf pain or swelling. No history of DVT or PE. His family does have a nebulizer. States that he has been using albuterol treatments as necessary however it is minimally helping his symptoms. No abdominal pain or changes in his bowel or bladder habits. No ripping or tearing sensation to his back. There are no other alleviating, precipitating or modifying factors - Related Data Home Medications Medication Instructions Recorded Confirmed Multivitamins, Thera [Multivitamin 1 tab PO DAILY 04/28/17 03/13/19 (formulary)] Ascorbic Acid [Vitamin C] 500 mg PO HS 03/13/19 03/13/19 Aspirin EC [Ecotrin] 325 mg PO DAILY 03/13/19 03/13/19 Cholecalciferol [Vitamin D3 (25 1,000 unit PO HS 03/13/19 03/13/19 Mcg = 1000 Iu)] Lisinopril-Hctz 20-12.5 mg 0.5 tab PO DAILY PRN 03/13/19 03/13/19 [Zestoretic 20-12.5] Previous Rx's Medication Instructions Recorded Albuterol Nebulized [Ventolin 2.5 mg INHALATION QID #0 03/17/19 Nebulized] Cefuroxime Axetil [Ceftin] 500 mg PO BID #10 tab 03/17/19 Furosemide [Lasix] 40 mg PO DAILY #30 tablet 03/17/19 Pantoprazole [Protonix] 40 mg PO JUSTIN-BRKFST #30 tablet. 03/17/19 predniSONE See Taper PO DIRECTED #63 tab 03/17/19 Allergies Allergy/AdvReac Type Severity Reaction Status Date / Time No Known Allergies Allergy Verified 03/13/19 11:38 Review of Systems ROS Statement: Those systems with pertinent positive or pertinent negative responses have been documented in the HPI. ROS Other: All systems not noted in ROS Statement are negative. Past Medical History Past Medical History: Atrial Fibrillation, Hypertension, Respiratory Disorder Additional Past Medical History / Comment(s): asthma History of Any Multi-Drug Resistant Organisms: None Reported Past Surgical History: Appendectomy, Hernia Repair, Tonsillectomy Additional Past Surgical History / Comment(s): Colonoscopy, Inguinal hernia repair April 2017 Past Anesthesia/Blood Transfusion Reactions: No Reported Reaction Past Psychological History: No Psychological Hx Reported Smoking Status: Never smoker Past Alcohol Use History: Occasional Past Drug Use History: None Reported - Past Family History Mother Family Medical History: Deep Vein Thrombosis (DVT) General Exam Limitations: no limitations General appearance: alert, in no apparent distress Head exam: Present: atraumatic, normocephalic, normal inspection Eye exam: Present: normal appearance, PERRL, EOMI. Absent: scleral icterus, conjunctival injection, periorbital swelling ENT exam: Present: normal exam, mucous membranes moist Neck exam: Present: normal inspection. Absent: tenderness, meningismus, lymphadenopathy Respiratory exam: Present: respiratory distress, wheezes, rales, accessory muscle use. Absent: rhonchi, stridor Cardiovascular Exam: Present: regular rate, normal rhythm, normal heart sounds. Absent: systolic murmur, diastolic murmur, rubs, gallop, clicks GI/Abdominal exam: Present: soft, normal bowel sounds. Absent: distended, tenderness, guarding, rebound, rigid Extremities exam: Present: normal inspection, full ROM, normal capillary refill. Absent: tenderness, pedal edema, joint swelling, calf tenderness Back exam: Present: normal inspection Neurological exam: Present: alert, oriented X3, CN II-XII intact Psychiatric exam: Present: normal affect, normal mood Skin exam: Present: warm, dry, intact, normal color. Absent: rash Course Vital Signs 03/13/19 03/13/19 03/13/19 11:02 11:38 11:51 Temperature 98.9 F Pulse Rate 112 H 66 68 Pulse Rate [ Pulse Oximetery ] Respiratory 26 H Rate Blood Pressure 136/78 Blood Pressure [Right Arm] O2 Sat by Pulse 94 L Oximetry 03/13/19 03/13/19 03/13/19 11:56 12:02 13:54 Temperature Pulse Rate 66 68 Pulse Rate [ Pulse Oximetery ] Respiratory 16 18 Rate Blood Pressure 130/69 Blood Pressure [Right Arm] O2 Sat by Pulse 96 Oximetry 03/13/19 03/13/19 03/13/19 13:59 14:05 14:11 Temperature 98.4 F Pulse Rate 77 68 Pulse Rate [ 76 Pulse Oximetery ] Respiratory 16 18 Rate Blood Pressure 122/68 Blood Pressure 126/80 [Right Arm] O2 Sat by Pulse 97 94 L Oximetry Medical Decision Making - Medical Decision Making The patient is placed into room 2. Vitals are obtained. His respiratory rate of 26 and is satting 94 percent on room air. He is given a DuoNeb breathing treatment. Peripheral IV is established and the patient is given 1 g of magnesium 125 mg of Solu-Medrol. A 12-lead EKG is performed which demonstrates atral fibrillation with a controlled ventricular response. I did recommend laboratory studies. CBC and coags are unremarkable. CMP shows a glucose of 107 and a bilirubin of 3. The BNP is 927. Troponin is negative. Influenza A and B are negative. Chest x-ray is reviewed by myself and demonstrates bibasilar opacities consistent with pneumonia. I reevaluated the patient. He remained audibly wheezy. I did order an additional breathing treatment. Blood cultures were obtained the patient was given a dose of Rocephin and azithromycin. I recommended hospital admission is patient as he is only satting 94% on room air. Patient did agree to this. I called and discussed the case with Dr. Gan who accepted admission of the patient - Lab Data Result diagrams: 03/16/19 06:17 03/16/19 06:17 Lab Results 03/13/19 03/13/19 03/13/19 Range/Units 11:43 11:43 11:43 WBC 8.8 (3.8-10.6) k/uL RBC 5.47 (4.30-5.90) m/uL Hgb 16.7 (13.0-17.5) gm/dL Hct 48.8 (39.0-53.0) % MCV 89.1 (80.0-100.0) fL MCH 30.5 (25.0-35.0) pg MCHC 34.2 (31.0-37.0) g/dL RDW 13.5 (11.5-15.5) % Plt Count 177 (150-450) k/uL Neutrophils % 84 % Lymphocytes % 7 % Monocytes % 5 % Eosinophils % 0 % Basophils % 2 % Neutrophils # 7.4 (1.3-7.7) k/uL Lymphocytes # 0.6 L (1.0-4.8) k/uL Monocytes # 0.5 (0-1.0) k/uL Eosinophils # 0.0 (0-0.7) k/uL Basophils # 0.1 (0-0.2) k/uL PT (9.0-12.0) sec INR (<1.2) APTT (22.0-30.0) sec Sodium 136 L (137-145) mmol/L Potassium 4.7 (3.5-5.1) mmol/L Chloride 105 (98-107) mmol/L Carbon Dioxide 24 (22-30) mmol/L Anion Gap 7 mmol/L BUN 15 (9-20) mg/dL Creatinine 0.83 (0.66-1.25) mg/dL Est GFR (CKD-EPI)AfAm >90 (>60 ml/min/1.73 sqM) Est GFR (CKD-EPI)NonAf >90 (>60 ml/min/1.73 sqM) Glucose 107 H (74-99) mg/dL Plasma Lactic Acid Luis (0.7-2.0) mmol/L Calcium 9.1 (8.4-10.2) mg/dL Total Bilirubin 3.0 H (0.2-1.3) mg/dL AST 48 (17-59) U/L ALT 49 (21-72) U/L Alkaline Phosphatase 64 (38-126) U/L Troponin I (0.000-0.034) ng/mL NT-Pro-B Natriuret Pep 927 pg/mL Total Protein 6.8 (6.3-8.2) g/dL Albumin 3.9 (3.5-5.0) g/dL Influenza Type A RNA (Not Detectd) Influenza Type B (PCR) (Not Detectd) 03/13/19 03/13/19 03/13/19 Range/Units 11:43 11:43 11:43 WBC (3.8-10.6) k/uL RBC (4.30-5.90) m/uL Hgb (13.0-17.5) gm/dL Hct (39.0-53.0) % MCV (80.0-100.0) fL MCH (25.0-35.0) pg MCHC (31.0-37.0) g/dL RDW (11.5-15.5) % Plt Count (150-450) k/uL Neutrophils % % Lymphocytes % % Monocytes % % Eosinophils % % Basophils % % Neutrophils # (1.3-7.7) k/uL Lymphocytes # (1.0-4.8) k/uL Monocytes # (0-1.0) k/uL Eosinophils # (0-0.7) k/uL Basophils # (0-0.2) k/uL PT 10.8 (9.0-12.0) sec INR 1.0 (<1.2) APTT 31.4 H (22.0-30.0) sec Sodium (137-145) mmol/L Potassium (3.5-5.1) mmol/L Chloride (98-107) mmol/L Carbon Dioxide (22-30) mmol/L Anion Gap mmol/L BUN (9-20) mg/dL Creatinine (0.66-1.25) mg/dL Est GFR (CKD-EPI)AfAm (>60 ml/min/1.73 sqM) Est GFR (CKD-EPI)NonAf (>60 ml/min/1.73 sqM) Glucose (74-99) mg/dL Plasma Lactic Acid Luis 1.1 (0.7-2.0) mmol/L Calcium (8.4-10.2) mg/dL Total Bilirubin (0.2-1.3) mg/dL AST (17-59) U/L ALT (21-72) U/L Alkaline Phosphatase (38-126) U/L Troponin I <0.012 (0.000-0.034) ng/mL NT-Pro-B Natriuret Pep pg/mL Total Protein (6.3-8.2) g/dL Albumin (3.5-5.0) g/dL Influenza Type A RNA (Not Detectd) Influenza Type B (PCR) (Not Detectd) 03/13/19 Range/Units 11:59 WBC (3.8-10.6) k/uL RBC (4.30-5.90) m/uL Hgb (13.0-17.5) gm/dL Hct (39.0-53.0) % MCV (80.0-100.0) fL MCH (25.0-35.0) pg MCHC (31.0-37.0) g/dL RDW (11.5-15.5) % Plt Count (150-450) k/uL Neutrophils % % Lymphocytes % % Monocytes % % Eosinophils % % Basophils % % Neutrophils # (1.3-7.7) k/uL Lymphocytes # (1.0-4.8) k/uL Monocytes # (0-1.0) k/uL Eosinophils # (0-0.7) k/uL Basophils # (0-0.2) k/uL PT (9.0-12.0) sec INR (<1.2) APTT (22.0-30.0) sec Sodium (137-145) mmol/L Potassium (3.5-5.1) mmol/L Chloride (98-107) mmol/L Carbon Dioxide (22-30) mmol/L Anion Gap mmol/L BUN (9-20) mg/dL Creatinine (0.66-1.25) mg/dL Est GFR (CKD-EPI)AfAm (>60 ml/min/1.73 sqM) Est GFR (CKD-EPI)NonAf (>60 ml/min/1.73 sqM) Glucose (74-99) mg/dL Plasma Lactic Acid Luis (0.7-2.0) mmol/L Calcium (8.4-10.2) mg/dL Total Bilirubin (0.2-1.3) mg/dL AST (17-59) U/L ALT (21-72) U/L Alkaline Phosphatase (38-126) U/L Troponin I (0.000-0.034) ng/mL NT-Pro-B Natriuret Pep pg/mL Total Protein (6.3-8.2) g/dL Albumin (3.5-5.0) g/dL Influenza Type A RNA Not Detected (Not Detectd) Influenza Type B (PCR) Not Detected (Not Detectd) - EKG Data EKG Comments: EKG demonstrates atrial fibrillation with a ventricular rate of 68. QRS 104. QTC 431. No acute ST segment elevations or depressions concerning for ischemic changes. There is minimal voltage in leads 2 and aVF Disposition Clinical Impression: Atrial fibrillation, Pleural effusion, Acute respiratory failure, Pneumonia Disposition: ADMITTED IP TO THIS HOSP Condition: Stable Is patient prescribed a controlled substance at d/c from ED?: No Decision to Admit Reason: Admit from EC Decision Date: 03/13/19 Decision Time: 13:23
[2019-03-13 12:04] LABS: Basophils # (A) 0.1 k/uL (0-0.2); Basophils % (A) 2 %; Eosinophils % (A) 0 %; HCT 48.8 % (39.0-53.0); HGB 16.7 gm/dL (13.0-17.5); Lymphocytes # (A) 0.6 k/uL (1.0-4.8); Lymphocytes % (A) 7 %; MCH 30.5 pg (25.0-35.0); MCHC 34.2 g/dL (31.0-37.0); MCV 89.1 fL (80.0-100.0); Mean Platelet Volume 6.6; Monocytes # (A) 0.5 k/uL (0-1.0); Monocytes % (A) 5 %; Neutrophils # (A) 7.4 k/uL (1.3-7.7); Neutrophils % (A) 84 %; Platelet Count 177 k/uL (150-450); RBC 5.47 m/uL (4.30-5.90); RDW 13.5 % (11.5-15.5); WBC 8.8 k/uL (3.8-10.6)
[2019-03-13 12:13] LABS: Partial Thromboplastin Time 31.4 sec (22.0-30.0); Prothrombin Time 10.8 sec (9.0-12.0)
[2019-03-13 12:20] LABS: ALT 49 U/L (21-72); AST 48 U/L (17-59); African American GFR (CKD) >90 (>60 ml/min/1.73 sqM); Albumin 3.9 g/dL (3.5-5.0); Alkaline Phosphatase 64 U/L (38-126); Anion Gap 7 mmol/L; Blood Urea Nitrogen 15 mg/dL (9-20); Calcium 9.1 mg/dL (8.4-10.2); Carbon Dioxide 24 mmol/L (22-30); Chloride 105 mmol/L (98-107); Glucose 107 mg/dL (74-99); Sodium 136 mmol/L (137-145); Total Protein 6.8 g/dL (6.3-8.2)
[2019-03-13 12:24] LABS: Potassium 4.7 mmol/L (3.5-5.1)
--- NOTE | 2019-03-13 12:36 | XR ---
EXAMINATION TYPE: XR chest 2V DATE OF EXAM: 03/13/2019 HISTORY: difficulty breathing. REFERENCE: Previous study dated 06/13/2016. FINDINGS: Heart size upper limits of normal. There is by basilar airspace disease, worse on the right than the left. There are small, bilateral ef fusions. IMPRESSION: 1. BIBASILAR AIRSPACE DISEASE EITHER REPRESENTING ATELECTASIS OR PNEUMONIA. 2. I CANNOT EXCLUDE SMALL, BILATERAL EFFUSIONS. 3. BORDERLINE CARDIOMEGALY.
[2019-03-13] MEDS ORDERED: cefTRIAXone IN SWFI 1,000 MG/10 ML SYRINGE IVP STA (13:07)
[2019-03-13] MEDS ORDERED: AZITHROMYCIN 500 MG in SODIUM CHLORIDE 0.9% 250 ML IVPB STA (13:07)
[2019-03-13] MEDS ORDERED: NALOXONE 0.4 MG/ML 1 ML VIAL IV PRN (13:18)
[2019-03-13] MEDS ORDERED: LISINOPRIL-HCTZ 20-12.5 MG 1 EACH TAB PO PRN (13:20)
[2019-03-13] MEDS ORDERED: FUROSEMIDE 10 MG/ML 4 ML VIAL IV STA (13:23)
[2019-03-13] MEDS ORDERED: ALPRAZolam 0.25 MG TAB PO PRN (16:13)
[2019-03-13] MEDS ORDERED: HYDROcodone/APAP 5-325MG 1 EACH TAB PO PRN (16:13)
[2019-03-13] MEDS: IPRATROPIUM-ALBUTEROL 3 ML NEB INHALATION SCH ×3 (16:35→20:25)
[2019-03-13] MEDS: INSULIN ASPART (NovoLOG) 100 UNIT/ML VIAL SQ SCH ×2 (17:39→21:02)
--- NOTE | 2019-03-13 19:32 | HP ---
HISTORY AND PHYSICAL I am covering for Dr. Bhakta who is the primary physician. DATE OF SERVICE: 03/13/2019 CHIEF COMPLAINT: Shortness of breath and cough. HISTORY OF PRESENT ILLNESS: This 64-year-old gentleman with a past medical history of atrial fibrillation, history of asthma, history of appendectomy, history of bariatric surgery, being followed by Dr. Cristo Bhakta in the outpatient setting is complaining of shortness of breath for the past several days. 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 Patient went to last week also. Because of increasing shortness of breath and cough, the patient came to [facility] and was admitted for further evaluation and treatment. Chest x-ray showed possible pneumonia, bilateral, right more the left. There is no history of any fever, rigors. No history of headache, loss of consciousness or seizures. Patient reports some occasional night sweats. PAST MEDICAL HISTORY: Atrial fibrillation, asthma, history of appendectomy, bariatric surgery, hernia surgery. MEDICATIONS: Prior to admission, home medications are: 1. Zestoretic 20/12.5 mg p.r.n. 2. Vitamin D3 1000 q.h.s. 3. Vitamin C 500 mg p.o. q.h.s. 4. Multivitamins one p.o. daily. 5. Ecotrin 320 mg p.o. daily. 6. Ventolin 2.5 t.i.d. p.r.n. ALLERGIES: None. FAMILY HISTORY: History of diabetes and DVT in the family. SOCIAL HISTORY: History of alcohol. No history of smoking. REVIEW OF SYSTEMS: ENT: No diminished hearing. No diminished vision. CARDIOVASCULAR as mentioned earlier. RESPIRATORY: As mentioned earlier. GASTROINTESTINAL: No nausea or vomiting. GENITOURINARY: No dysuria. CENTRAL NERVOUS SYSTEM: No numbness or weakness. ALLERGY/IMMUNOLOGY: As mentioned earlier. HEMATOLOGY/ONCOLOGY: No history of anemia. ENDOCRINE: No history of diabetes or hypothyroidism. CONSTITUTIONAL: As mentioned earlier. DERMATOLOGY: Negative. RHEUMATOLOGY negative. PSYCHIATRY as mentioned earlier. PHYSICAL EXAMINATION: Alert and oriented x3. The pulse is 77. Blood pressure 122/60, respirations 16, temperature 98.4, pulse ox 97% on room air. HEENT is conjunctivae normal. Oral mucosa moist. Neck is no jugular venous distention. No carotid bruit. No lymph node enlargement. Breathing efforts are markedly increased. CARDIOVASCULAR system: S1, S2 muffled. No S3, no S4. RESPIRATORY: Breath sounds diminished in the bases. Bilateral scattered rhonchi and crackles. Expiratory wheezing and prolonged expiration present bilaterally extensively. Audible wheeze also heard. ABDOMEN: Soft, obese, nontender. No mass palpable. LEGS: No edema. No swelling. NERVOUS SYSTEM: Higher functions as mentioned earlier. Moves all 4 limbs. No focal motor or sensory deficits. LYMPHATICS: No lymph nodes palpable in the neck, axillae or groin. SKIN: No ulcer, no rash and no bleeding. JOINTS: No active deforming arthropathy. LABS: At this time show: WBC 8.8, hemoglobin 16.7, sodium 136, potassium 4.7, and glucose 107. Total bilirubin is 3 and influenza negative. ASSESSMENT: 1. Possible acute bronchial asthma, acute exacerbation with acute bilateral pneumonia right more than the left with possibly gram-negative pneumonia. 2. Hyponatremia. 3. 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 4. History atrial fibrillation. 5. History of appendectomy. 6. History of bariatric surgery. 7. History of hernia repair. 8. History of tonsillectomy. 9. History of colonoscopy. 10.Inguinal hernia repair. 11.History of gastric sleeve surgery. 12.Obesity with body mass index of 42. RECOMMENDATIONS AND DISCUSSION: This 64-year-old gentleman with a past medical history of multiple medical problems, we will monitor the patient closely. Continue the current medications, management and symptomatic treatment. Continue the bronchodilators. Continue empiric antibiotics. Continue with IV steroids. Monitor blood sugars closely. DVT prophylaxis. Recommend Pulmonary consultations. Obtain the cultures. The prognosis is guarded because of multiple complex medical issues, we will monitor the blood sugars closely. Discussed with the patient who understands and agrees. Further recommendations to follow. A copy of dictation being forwarded to Dr. Bhakta who is the primary care physician. MMODL / IJN: [id number] /
[2019-03-13] MEDS: CHOLECALCIFEROL 1,000 UNIT TAB PO SCH (20:00)
[2019-03-13] MEDS: methylPREDNISolone SOD SUCCI 125 MG/2 ML VIAL IV SCH ×2 (20:00→23:31)
[2019-03-13] MEDS: ASCORBIC ACID 500 MG TAB PO SCH (20:00)
[2019-03-13] MEDS: HEPARIN SODIUM,PORCINE 5,000 UNIT/ML 1 ML VIAL SQ SCH (20:00)
[2019-03-13] MEDS: FORMOTEROL FUMARATE 20 MCG/2 ML NEBU INHALATION SCH (20:07)
[2019-03-13] MEDS: BUDESONIDE 1 MG/2 ML NEBU INHALATION SCH (20:07)
[2019-03-13 20:59] LABS: Glucose,Whole Blood 212 mg/dL (75-99)
[2019-03-14] MEDS ORDERED: FUROSEMIDE 10 MG/ML 4 ML VIAL IV ONE (00:30)
[2019-03-14] MEDS: IPRATROPIUM-ALBUTEROL 3 ML NEB INHALATION PRN ×2 (01:35→04:27)
[2019-03-14 06:08] LABS: Basophils % (A) 0 %; Eosinophils % (A) 0 %; HCT 51.4 % (39.0-53.0); HGB 17.5 gm/dL (13.0-17.5); Lymphocytes # (A) 0.4 k/uL (1.0-4.8); Lymphocytes % (A) 5 %; MCH 30.5 pg (25.0-35.0); MCHC 34.1 g/dL (31.0-37.0); MCV 89.5 fL (80.0-100.0); Mean Platelet Volume 6.8; Monocytes # (A) 0.2 k/uL (0-1.0); Monocytes % (A) 3 %; Neutrophils # (A) 8.1 k/uL (1.3-7.7); Neutrophils % (A) 92 %; Platelet Count 171 k/uL (150-450); RBC 5.75 m/uL (4.30-5.90); RDW 13.3 % (11.5-15.5); WBC 8.8 k/uL (3.8-10.6)
[2019-03-14 06:14] LABS: Glucose,Whole Blood 187 mg/dL (75-99)
[2019-03-14] MEDS: PANTOPRAZOLE 40 MG TABLET PO SCH (06:23)
[2019-03-14] MEDS: INSULIN ASPART (NovoLOG) 100 UNIT/ML VIAL SQ SCH ×4 (06:23→21:37)
[2019-03-14] MEDS: methylPREDNISolone SOD SUCCI 125 MG/2 ML VIAL IV SCH ×4 (06:23→23:25)
[2019-03-14 06:46] LABS: African American GFR (CKD) >90 (>60 ml/min/1.73 sqM); Anion Gap 12 mmol/L; Blood Urea Nitrogen 20 mg/dL (9-20); Calcium 9.6 mg/dL (8.4-10.2); Carbon Dioxide 22 mmol/L (22-30); Chloride 104 mmol/L (98-107); Glucose 219 mg/dL (74-99); Potassium 3.6 mmol/L (3.5-5.1); Sodium 138 mmol/L (137-145)
[2019-03-14] MEDS: ASPIRIN 325 MG TAB PO SCH (07:50)
[2019-03-14] MEDS: HEPARIN SODIUM,PORCINE 5,000 UNIT/ML 1 ML VIAL SQ SCH ×2 (07:50→20:15)
[2019-03-14] MEDS: MULTIVITAMINS, THERA 1 EACH TAB PO SCH (07:50)
[2019-03-14] MEDS: BUDESONIDE 1 MG/2 ML NEBU INHALATION SCH ×2 (08:20→20:21)
[2019-03-14] MEDS: IPRATROPIUM-ALBUTEROL 3 ML NEB INHALATION SCH ×4 (08:20→20:21)
[2019-03-14] MEDS: FORMOTEROL FUMARATE 20 MCG/2 ML NEBU INHALATION SCH ×2 (08:20→20:21)
--- NOTE | 2019-03-14 09:01 | P.CNPUL ---
History of Present Illness Consult date: 03/13/19 Reason for consult: dyspnea, cough Chief complaint: Shortness of breath and cough wheezing for a week History of present illness: This is a 64-year-old male nonsmoker has been having cough congestion for almost a week symptoms of progressive patient has a long-standing history of asthma, patient sees in follow is Dr. Cristo Bhakta , he had a similar episode approximately 5 years ago. Reports that he was never been a diagnosis for his respiratory issues. Denies a history of COPD or asthma. Does not use home oxygen. Hasn't had any issues with his breathing recently. Denies a cardiac history. No history of MD or stent placement. Does have a history of A. fib. Not currently on any anticoagulation. And reports that he quit smoking several years ago. Does not see a sales development representative. As of one week ago the patient had increased shortness of breath. Denies any recent travel or sick contacts. Does admit to a productive cough. No fevers but does report night sweats. Denies chest pain or palpitations. No nausea or vomiting. Denies any lower extremity edema. No calf pain or swelling. No history of DVT or PE. His family does have a nebulizer. States that he has been using albuterol treatments as nec essary however it is minimally helping his symptoms. No abdominal pain or changes in his bowel or bladder habits. No ripping or tearing sensation to his back. There are no other alleviating, precipitating or modifying factors Review of Systems All systems: negative Past Medical History Past Medical History: Atrial Fibrillation Additional Past Medical History / Comment(s): asthma History of Any Multi-Drug Resistant Organisms: None Reported Past Surgical History: Appendectomy, Bariatric Surgery, Hernia Repair, Tonsillectomy Additional Past Surgical History / Comment(s): Colonoscopy, Inguinal hernia repair April 2017, Gastric Sleeve 2017. Past Anesthesia/Blood Transfusion Reactions: No Reported Reaction Past Psychological History: No Psychological Hx Reported Smoking Status: Never smoker Past Alcohol Use History: Occasional Past Drug Use History: None Reported - Past Family History Mother Family Medical History: Diabetes Mellitus, Deep Vein Thrombosis (DVT) Medications and Allergies Home Medications Medication Instructions Recorded Confirmed Type Albuterol Nebulized [Ventolin 2.5 mg INHALATION RT-TID PRN 04/28/17 03/13/19 History Nebulized] Multivitamins, Thera [Multivitamin 1 tab PO DAILY 04/28/17 03/13/19 History (formulary)] Ascorbic Acid [Vitamin C] 500 mg PO HS 03/13/19 03/13/19 History Aspirin EC [Ecotrin] 325 mg PO DAILY 03/13/19 03/13/19 History Cholecalciferol [Vitamin D3 (25 1,000 unit PO HS 03/13/19 03/13/19 History Mcg = 1000 Iu)] Lisinopril-Hctz 20-12.5 mg 0.5 tab PO DAILY PRN 03/13/19 03/13/19 History [Zestoretic 20-12.5] Allergies Allergy/AdvReac Type Severity Reaction Status Date / Time No Known Allergies Allergy Verified 03/13/19 11:38 Physical Exam Vitals: Vital Signs Temp Pulse Pulse Resp BP BP Pulse Ox 03/13/19 23:26 75 18 120/68 96 03/13/19 20:35 84 03/13/19 20:21 80 03/13/19 20:20 80 03/13/19 20:07 80 03/13/19 20:00 98.2 F 73 18 117/72 95 03/13/19 17:32 98.1 F 84 18 119/84 97 03/13/19 16:47 84 03/13/19 16:36 80 03/13/19 14:21 16 03/13/19 14:11 98.4 F 76 18 126/80 94 L 03/13/19 14:05 68 03/13/19 13:59 77 16 122/68 97 03/13/19 13:54 68 03/13/19 12:02 18 03/13/19 11:56 66 16 130/69 96 03/13/19 11:51 68 03/13/19 11:38 66 03/13/19 11:02 98.9 F 112 H 26 H 136/78 94 L Intake and Output 03/13/19 03/13/19 03/14/19 14:59 22:59 05:59 Other: Voiding Method Toilet Toilet # Voids 1 Weight 140.614 kg - Constitutional General appearance: disheveled, morbidly obese - EENT Eyes: anicteric sclerae, EOMI, PERRLA, poor dentition, normal appearance ENT: normal oropharynx Ears: bilateral: normal - Neck Neck: normal ROM Carotids: bilateral: upstroke normal Thyroid: bilateral: normal size - Respiratory Respiratory: bilateral: diminished, rhonchi, wheezing, prolonged expiration, negative: CTA, dullness, rales, prolonged inspiration, other - Cardiovascular Rhythm: regular Heart sounds: normal: S1, S2 - Gastrointestinal General gastrointestinal: decreased bowel sounds, distended, soft - Neurologic Neurologic: CNII-XII intact - Musculoskeletal Musculoskeletal: gait normal, generalized weakness, strength equal bilaterally - Psychiatric Psychiatric: A&O x's 3, appropriate affect, intact judgment & insight Results - Laboratory Findings CBC and BMP: 03/14/19 05:16 03/14/19 05:16 PT/INR, D-dimer PT 10.8 sec (9.0-12.0) 03/13/19 11:43 INR 1.0 (<1.2) 03/13/19 11:43 D-Dimer 0.67 mg/L FEU (<0.60) H 03/13/19 18:07 Abnormal lab findings: Abnormal Labs 03/13/19 03/13/19 03/13/19 11:43 11:43 11:43 Lymphocytes # 0.6 L APTT 31.4 H D-Dimer Sodium 136 L Glucose 107 H POC Glucose (mg/dL) Total Bilirubin 3.0 H 03/13/19 03/13/19 18:07 20:58 Lymphocytes # APTT D-Dimer 0.67 H Sodium Glucose POC Glucose (mg/dL) 212 H Total Bilirubin - Diagnostic Findings Chest x-ray: report reviewed, image reviewed (By basilar pneumonia, cardio megaly, interstitial edema, findings are suggestive of combination of heart failure may be pneumonia) Assessment and Plan Assessment: Bilateral pneumonia Suspect congestive heart failure, likely acute on chronic diastolic heart failure Morbid obesity and likely obstructive sleep apnea Paroxysmal atrial fibrillation Asthmatic bronchitis Abnormal LFTs likely multifactorial heart failure versus fatty infiltration Plan: Breathing treatment Broad-spectrum antibiotics DVT prophylaxis Recommend cardiovascular evaluation including echocardiogram Sleep study as outpatient Further recommendations pending plan of care as per clinical response of the patient Time with Patient: Greater than 30
--- NOTE | 2019-03-14 09:04 | P.PN ---
Subjective Progress Note Date: 03/14/19 03/14/2019, patient seen eval examined during the rounds labs reviewed medications reviewed care plan discussed with the patient at length, sitting upright on the chair breathing has slightly improved though still have ongoing wheezing cough and congestion is improved, on IV steroids breathing treatment an tibiotics The patient is a 64-year-old male who presents to the emergency room with reported shortness of breath. He states he had a similar episode approximately 5 years ago. Reports that he was never been a diagnosis for his respiratory issues. Denies a history of COPD or asthma. Does not use home oxygen. Hasn't had any issues with his breathing recently. Denies a cardiac history. No his tory of HI or stent placement. Does have a history of A. fib. Not currently on any anticoagulation. And reports that he quit smoking several years ago. 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 As of one week ago the patient had increased shortness of breath. Denies any recent travel or sick contacts. Does admit to a productive cough. No fevers but does report night sweats. Denies chest pain or palpitations. No nausea or vomiting. Denies any lower extremity edema. No calf pain or swelling. No history of DVT or PE. His family does have a nebulizer. States that he has been using albuterol treatments as necessary however it is minimally helping his symptoms. No abdominal pain or changes in his bowel or bladder habits. No ripping or tearing sensation to his back. There are no other alleviating, precipitating or modifying factors Objective - Vital Signs Vital signs: Vital Signs Temp 98.4 F 03/14/19 08:00 Pulse 88 03/14/19 08:43 Resp 18 03/14/19 08:00 BP 124/70 03/14/19 08:00 Pulse Ox 94 L 03/14/19 08:00 Intake & Output 03/13/19 03/14/19 03/14/19 19:59 06:59 18:59 Output Total 500 Balance -500 Weight Output: Urine 500 Other: Voiding Method # Voids - Exam - Constitutional General appearance: disheveled, morbidly obese - EENT Eyes: anicteric sclerae, EOMI, PERRLA, poor dentition, normal appearance ENT: normal oropharynx Ears: bilateral: normal - Neck Neck: normal ROM Carotids: bilateral: upstroke normal Thyroid: bilateral: normal size - Respiratory Respiratory: bilateral: diminished, rhonchi, wheezing, prolonged expiration, negative: CTA, dullness, rales, prolonged inspiration, other - Cardiovascular Rhythm: regular Heart sounds: normal: S1, S2 - Gastrointestinal General gastrointestinal: decreased bowel sounds, distended, soft - Neurologic Neurologic: CNII-XII intact - Musculoskeletal Musculoskeletal: gait normal, generalized weakness, strength equal bilaterally - Psychiatric Psychiatric: A&O x's 3, appropriate affect, intact judgment & insight - Labs CBC & Chem 7: 03/14/19 05:16 03/14/19 05:16 Labs: Abnormal Lab Results - Last 24 Hours (Table) 03/13/19 03/13/19 03/13/19 Range/Units 11:43 11:43 11:43 Neutrophils # (1.3-7.7) k/uL Lymphocytes # 0.6 L (1.0-4.8) k/uL APTT 31.4 H (22.0-30.0) sec D-Dimer (<0.60) mg/L FEU Sodium 136 L (137-145) mmol/L Glucose 107 H (74-99) mg/dL POC Glucose (mg/dL) (75-99) mg/dL Total Bilirubin 3.0 H (0.2-1.3) mg/dL 03/13/19 03/13/19 03/14/19 Range/Units 18:07 20:58 05:16 Neutrophils # 8.1 H (1.3-7.7) k/uL Lymphocytes # 0.4 L (1.0-4.8) k/uL APTT (22.0-30.0) sec D-Dimer 0.67 H (<0.60) mg/L FEU Sodium (137-145) mmol/L Glucose (74-99) mg/dL POC Glucose (mg/dL) 212 H (75-99) mg/dL Total Bilirubin (0.2-1.3) mg/dL 03/14/19 03/14/19 Range/Units 05:16 06:13 Neutrophils # (1.3-7.7) k/uL Lymphocytes # (1.0-4.8) k/uL APTT (22.0-30.0) sec D-Dimer (<0.60) mg/L FEU Sodium (137-145) mmol/L Glucose 219 H (74-99) mg/dL POC Glucose (mg/dL) 187 H (75-99) mg/dL Total Bilirubin (0.2-1.3) mg/dL Assessment and Plan Assessment: Bilateral pneumonia Suspect congestive heart failure, likely acute on chronic diastolic heart failure Morbid obesity and likely obstructive sleep apnea Paroxysmal atrial fibrillation Asthmatic bronchitis Abnormal LFTs likely multifactorial heart failure versus fatty infiltration Plan: Breathing treatment Broad-spectrum antibiotics DVT prophylaxis Recommend cardiovascular evaluation including echocardiogram Sleep study as outpatient Further recommendations pending plan of care as per clinical response of the patient Time with Patient: Greater than 30
[2019-03-14 12:08] LABS: Glucose,Whole Blood 216 mg/dL (75-99)
[2019-03-14] MEDS ORDERED: AZITHROMYCIN 500 MG in SODIUM CHLORIDE 0.9% 250 ML IVPB SCH (16:00)
[2019-03-14 17:14] LABS: Glucose,Whole Blood 197 mg/dL (75-99)
[2019-03-14] MEDS: ASCORBIC ACID 500 MG TAB PO SCH (20:15)
--- NOTE | 2019-03-14 20:15 | PN ---
PROGRESS NOTE DATE OF SERVICE: 03/14/2019. This 64-year-old gentleman admitted with acute bronchial asthma, also had possible gram- negative pneumonia. The patient is on broad-spectrum IV antibiotics. The patient is receiving IV steroids and bronchodilators also. Dr. Clay is following the patient closely. The NT proBNP is only 927. The patient also was given IV steroids at this time. CHF is also considered as a possibility. PAST MEDICAL HISTORY: Reviewed. REVIEW OF SYSTEMS: Cardiovascular system: No angina or palpitations. Respirations no cough. No hemoptysis. GI: As mentioned earlier. no dysuria. Nervous system: No numbness or weakness. CURRENT MEDICATIONS: Reviewed and include: 1. [place] 5 mg q.6h. 2. DuoNeb q.i.d. and p.r.n. 3. Xanax 0.5 t.i.d. 4. Vitamin C 500 mg p.o. q.h.s. 5. Aspirin 320 mg daily. 6. Zithromax 500 mg IV daily. 7. Pulmicort 1 mg daily. 8. Rocephin 1 g IV daily. 9. Vitamin D3 2000 q.h.s. 10.Perforomist 20 mg b.i.d. 11.Heparin 5000 subcu b.i.d. 12.NovoLog scale. 13.Solu-Medrol 60 IV q.6h. 14.Multivitamins. 15.Narcan. 16.Protonix. PHYSICAL EXAM: Patient is alert, oriented x3. Pulse 78. Blood pressure 120/72, respiration 20, temperature 97.8, pulse ox 94% on room air. HEENT: Conjunctivae normal. Oral mucosa moist. NECK is no jugular venous distention. No carotid bruit. No lymph node enlargement. Cardiovascular system: S1, S2 muffled. No S3, no S4. RESPIRATORY: Breath sounds diminished in the bases. Bilateral scattered rhonchi and crackles. Expiratory wheezing also present. ABDOMEN: Soft, nontender. No mass palpable. LEGS no edema. No swelling. NERVOUS SYSTEM: No focal deficits. LABS: WBC 8.2, hemoglobin 17.5, otherwise Accu-Cheks are 197. ASSESSMENT: 1. Possible acute bronchial asthma acute exacerbation with acute bilateral pneumonia, right more than the left with possibly gram-negative pneumonia. 2. Rule out congestive heart failure acute exacerbation. 3. Hyponatremia. 4. 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 5. History atrial fibrillation. 6. History of appendectomy. 7. History of bariatric surgery. 8. History of hernia repair. 9. History of tonsillectomy. 10.History of colonoscopy. 11.History of inguinal hernia repair. 12.History of gastric sleeve surgery. 13.Obesity with body mass index of 42. DISCUSSION AND RECOMMENDATIONS: Recommend to continue current medications, management and symptomatic treatment. I would recommend repeat chest x-ray and I would also recommend a 2D echo with Doppler. Otherwise, continue the antibiotics and recommended daily dose of Lasix. Dr. Bhakta will follow. MMODL / IJN: [id number] /
[2019-03-14] MEDS: CHOLECALCIFEROL 1,000 UNIT TAB PO SCH (20:17)
[2019-03-14 21:11] LABS: Glucose,Whole Blood 242 mg/dL (75-99)
[2019-03-15] MEDS: IPRATROPIUM-ALBUTEROL 3 ML NEB INHALATION PRN (03:18)
[2019-03-15 06:12] LABS: Glucose,Whole Blood 233 mg/dL (75-99)
[2019-03-15] MEDS: methylPREDNISolone SOD SUCCI 125 MG/2 ML VIAL IV SCH ×2 (06:28→12:13)
[2019-03-15] MEDS: INSULIN ASPART (NovoLOG) 100 UNIT/ML VIAL SQ SCH ×4 (06:28→21:08)
[2019-03-15] MEDS: PANTOPRAZOLE 40 MG TABLET PO SCH (06:29)
[2019-03-15 06:55] LABS: Basophils % (A) 0 %; Eosinophils % (A) 0 %; HCT 51.8 % (39.0-53.0); HGB 17.4 gm/dL (13.0-17.5); Lymphocytes # (A) 0.7 k/uL (1.0-4.8); Lymphocytes % (A) 3 %; MCH 30.5 pg (25.0-35.0); MCHC 33.7 g/dL (31.0-37.0); MCV 90.7 fL (80.0-100.0); Mean Platelet Volume 6.7; Monocytes # (A) 1.1 k/uL (0-1.0); Monocytes % (A) 4 %; Neutrophils # (A) 21.9 k/uL (1.3-7.7); Neutrophils % (A) 92 %; Platelet Count 218 k/uL (150-450); RBC 5.72 m/uL (4.30-5.90); RDW 13.4 % (11.5-15.5); WBC 23.9 k/uL (3.8-10.6)
[2019-03-15] MEDS: BUDESONIDE 1 MG/2 ML NEBU INHALATION SCH ×2 (07:23→19:14)
[2019-03-15] MEDS: IPRATROPIUM-ALBUTEROL 3 ML NEB INHALATION SCH ×4 (07:23→19:15)
[2019-03-15] MEDS: FORMOTEROL FUMARATE 20 MCG/2 ML NEBU INHALATION SCH ×2 (07:23→19:15)
[2019-03-15 07:25] LABS: Potassium 4.2 mmol/L (3.5-5.1)
[2019-03-15] MEDS: HEPARIN SODIUM,PORCINE 5,000 UNIT/ML 1 ML VIAL SQ SCH ×2 (07:53→20:09)
[2019-03-15] MEDS: ASPIRIN 325 MG TAB PO SCH (07:53)
[2019-03-15] MEDS: MULTIVITAMINS, THERA 1 EACH TAB PO SCH (07:53)
[2019-03-15] MEDS: FUROSEMIDE 10 MG/ML 4 ML VIAL IV SCH (07:53)
--- NOTE | 2019-03-15 10:25 | XR ---
EXAMINATION TYPE: XR chest 1V portable DATE OF EXAM: 03/15/2019 COMPARISON: 03/13/2019 HISTORY: Shortness of breath TECHNIQUE: Single frontal view of the chest is obtained. FINDINGS: Stable bilateral consolidation. Heart enlarged. No pneumothorax. Coarsened interstitium no devon. No pleural effusion. IMPRESSION: 1. Stable right-sided consolidation. Follow-up to resolution to exclude underlying mass. 2. Left basilar subsegmental consolidation stable.
[2019-03-15 11:42] LABS: Glucose,Whole Blood 265 mg/dL (75-99)
--- NOTE | 2019-03-15 13:00 | P.PN ---
Subjective Progress Note Date: 03/15/19 This is 63-year-old gentleman admitted with shortness of breath, bilateral pneumonia, possible acute CHF exacerbation and multiple other medical issues. Chest x-ray reporting stable right-sided consolidation with follow-up recommended to exclude underlying mass, left basilar subsegmental consolidation stable. Maintained on nebulized bronchodilators, antibiotics and steroids with significant clinical improvement. Afebrile, maintaining O2 sats in the high 90s on room air. Complains of right testicle -"grapefruit size".... Right hydrocele present. Denies chest pain, palpitations or increased shortness of breath. Occasional productive cough with shaw sputum. Denies lightheadedness, dizziness or focal deficits. Objective - Vital Signs Vital signs: Vital Signs Temp 97.2 F L 03/15/19 08:00 Pulse 92 03/15/19 10:55 Resp 18 03/15/19 08:00 BP 140/75 03/15/19 08:00 Pulse Ox 98 03/15/19 08:00 Intake & Output 03/14/19 03/15/19 03/15/19 18:59 06:59 18:59 Intake Total 240 280 Output Total 1100 Balance -1100 240 280 Weight 133.2 kg Intake: IV 20 Invasive Line 2 20 Oral 240 260 Output: Urine 1100 Other: Voiding Method Toilet Toilet # Voids 3 1 - Exam PHYSICAL EXAM: VITAL SIGNS: As above GENERAL: Sitting up in chair, no acute distress HEENT: Conjunctivae normal. eyes normal. Mucosa moist NECK: No JVD. No thyroid enlargement. No LNs CARDIOVASCULAR: S1, S2 regular.. No murmur RESPIRATION: Breath sounds diminished in the bases. Raspy/congestive with scattered rhonchi, fine bibasilar crackles and bilateral expiratory wheezing ABDOMEN: Soft, nontender . No guarding. no masses palpable. No ascites, No hepatosplenomegaly.Bowel sounds heard. LEGS: No edema. no swelling. PSYCHIATRY: Alert and oriented X3, mood and affect normal. NERVOUS SYSTEM: Cranial N 2-12 grossly normal. Moves all 4 limbs. Diffuse weakness No focal deficits. Strength and sensation grossly intact.. Skin: Right hydrocele, approximately 10 cm in circumference. Lymphatic system. No LN neck axilla - Labs CBC & Chem 7: 03/15/19 05:47 11/04/19 05:47 Labs: Abnormal Lab Results - Last 24 Hours (Table) 03/14/19 03/14/19 03/15/19 Range/Units 17:05 21:09 05:47 WBC 23.9 H (3.8-10.6) k/uL Neutrophils # 21.9 H (1.3-7.7) k/uL Lymphocytes # 0.7 L (1.0-4.8) k/uL Monocytes # 1.1 H (0-1.0) k/uL Carbon Dioxide (22-30) mmol/L BUN (9-20) mg/dL Glucose (74-99) mg/dL POC Glucose (mg/dL) 197 H 242 H (75-99) mg/dL 03/15/19 03/15/19 03/15/19 Range/Units 05:47 06:11 11:41 WBC (3.8-10.6) k/uL Neutrophils # (1.3-7.7) k/uL Lymphocytes # (1.0-4.8) k/uL Monocytes # (0-1.0) k/uL Carbon Dioxide 21 L (22-30) mmol/L BUN 36 H (9-20) mg/dL Glucose 241 H (74-99) mg/dL POC Glucose (mg/dL) 233 H 265 H (75-99) mg/dL Microbiology - Last 24 Hours (Table) 03/13/19 13:50 Blood Culture - Preliminary Blood No Growth after 24 hours Assessment and Plan Assessment: Bilateral pneumonia, possible gram-negative, right-sided consolidation-possible underlying mass, pulmonary following Possible Acute bronchial asthma exacerbation Suspect congestive heart failure, likely acute on chronic diastolic heart failure Morbid obesity and likely obstructive sleep apnea Paroxysmal atrial fibrillation Asthmatic bronchitis Abnormal LFTs likely multifactorial heart failure versus fatty infiltration Right hydrocele Recent hernia repair Plan: Continue on current medication regime ,monitoring and symptomatic treatment. Echo ordered. Urology consulted regarding right hydrocele. Maintain nebulized bronchodilators, steroids, antibiotics. Weaning of steroids in progress. Follow closely with pulmonary. The impression and plan of care has been dictated as directed. : I performed a history and examination of this patient, discussed the same with the dictator. I agree with the dictator's note ,documented as a scribe. Any additional findings or plans will be noted.
[2019-03-15 16:53] LABS: Glucose,Whole Blood 224 mg/dL (75-99)
[2019-03-15] MEDS: AZITHROMYCIN 500 MG TAB PO SCH (17:01)
[2019-03-15] MEDS: methylPREDNISolone SOD SUCCI 40 MG/ML 1 ML VIAL IV SCH ×2 (17:01→22:47)
--- NOTE | 2019-03-15 17:21 | P.GSCN ---
History of Present Illness Consult date: 03/15/19 Reason for Consult: Right sided hydrocele Requesting physician: Manuelito Gan History of present illness: Mr. Evans is a 63-year-old gentleman admitted with shortness of breath, bilateral pneumonia, possible acute CHF exacerbation and multiple other medical issues. Urology is consulted for right sided hydrocele that is bothersome to him. He indicated that the hydrocele has been present for more than 2 years. 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 He Indicated that he initially noticed it following his inguinal hernia surgery. He denies any history of scrotal trauma or any previous surgeries. Denies any urinary symptoms. Has not noticed any fluctuation in the size of the hydrocele sac Review of Systems - Constitutional Denies chills, Denies fever - EENT Ears, nose, mouth and throat: Denies dysphagia, Denies headache - Cardiovascular Reports dyspnea on exertion, Reports leg edema - Respiratory Reports dyspnea, Denies cough - Gastrointestinal Denies abdominal pain, Denies nausea, Denies vomiting - Genitourinary Denies dysuria, Denies flank pain, Denies kidney stones - Musculoskeletal Denies fractures, Denies frequent falls - Neurological Denies confusion, Denies weakness Past Medical History Past Medical History: Atrial Fibrillation Additional Past Medical History / Comment(s): asthma History of Any Multi-Drug Resistant Organisms: None Reported Past Surgical History: Appendectomy, Bariatric Surgery, Hernia Repair, Tonsillectomy Additional Past Surgical History / Comment(s): Colonoscopy, Inguinal hernia repair April 2017, Gastric Sleeve 2017. Past Anesthesia/Blood Transfusion Reactions: No Reported Reaction Past Psychological History: No Psychological Hx Reported Smoking Status: Never smoker Past Alcohol Use History: Occasional Past Drug Use History: None Reported - Past Family History Mother Family Medical History: Diabetes Mellitus, Deep Vein Thrombosis (DVT) Medications and Allergies Home Medications Medication Instructions Recorded Confirmed Type Albuterol Nebulized [Ventolin 2.5 mg INHALATION RT-TID PRN 04/28/17 03/13/19 History Nebulized] Multivitamins, Thera [Multivitamin 1 tab PO DAILY 04/28/17 03/13/19 History (formulary)] Ascorbic Acid [Vitamin C] 500 mg PO HS 03/13/19 03/13/19 History Aspirin EC [Ecotrin] 325 mg PO DAILY 03/13/19 03/13/19 History Cholecalciferol [Vitamin D3 (25 1,000 unit PO HS 03/13/19 03/13/19 History Mcg = 1000 Iu)] Lisinopril-Hctz 20-12.5 mg 0.5 tab PO DAILY PRN 03/13/19 03/13/19 History [Zestoretic 20-12.5] Allergies Allergy/AdvReac Type Severity Reaction Status Date / Time No Known Allergies Allergy Verified 03/13/19 11:38 Surgical - Exam Vital Signs Temp Pulse Resp BP Pulse Ox 98.9 F 112 H 26 H 136/78 94 L 03/13/19 11:02 03/13/19 11:02 03/13/19 11:03/13/19 11:03/13/19 11:02 - General well developed, well nourished, no distress, no pain - ENT normal mucosa, no hearing loss - Respiratory normal expansion, normal respiratory effort - Abdomen Abdomen: soft, non tender - Genitourinary Normal left testicle, circumcised phallus with redundant foreskin. Large tense right-sided hydrocele unable to palpate the right testicle. No fluctuation in size with straining - Neurologic normal coordination, normal sensation - Psychiatric oriented to time, oriented to person, oriented to place Results - Labs 03/15/19 05:47 03/15/19 05:47 Abnormal Lab Results - Last 24 Hours (Table) 03/14/19 03/14/19 03/15/19 Range/Units 17:05 21:09 05:47 WBC 23.9 H (3.8-10.6) k/uL Neutrophils # 21.9 H (1.3-7.7) k/uL Lymphocytes # 0.7 L (1.0-4.8) k/uL Monocytes # 1.1 H (0-1.0) k/uL Carbon Dioxide (22-30) mmol/L BUN (9-20) mg/dL Glucose (74-99) mg/dL POC Glucose (mg/dL) 197 H 242 H (75-99) mg/dL 03/15/19 03/15/19 03/15/19 Range/Units 05:47 06:11 11:41 WBC (3.8-10.6) k/uL Neutrophils # (1.3-7.7) k/uL Lymphocytes # (1.0-4.8) k/uL Monocytes # (0-1.0) k/uL Carbon Dioxide 21 L (22-30) mmol/L BUN 36 H (9-20) mg/dL Glucose 241 H (74-99) mg/dL POC Glucose (mg/dL) 233 H 265 H (75-99) mg/dL Microbiology - Last 24 Hours (Table) 03/13/19 13:50 Blood Culture - Preliminary Blood No Growth after 48 hours Diabetes panel 03/15/19 Range/Units 05:47 Sodium 139 (137-145) mmol/L Potassium 4.2 (3.5-5.1) mmol/L Chloride 106 (98-107) mmol/L Carbon Dioxide 21 L (22-30) mmol/L BUN 36 H (9-20) mg/dL Creatinine 1.03 (0.66-1.25) mg/dL Glucose 241 H (74-99) mg/dL Calcium 10.0 (8.4-10.2) mg/dL Calcium panel 03/15/19 Range/Units 05:47 Calcium 10.0 (8.4-10.2) mg/dL Pituitary panel 03/15/19 Range/Units 05:47 Sodium 139 (137-145) mmol/L Potassium 4.2 (3.5-5.1) mmol/L Chloride 106 (98-107) mmol/L Carbon Dioxide 21 L (22-30) mmol/L BUN 36 H (9-20) mg/dL Creatinine 1.03 (0.66-1.25) mg/dL Glucose 241 H (74-99) mg/dL Calcium 10.0 (8.4-10.2) mg/dL Adrenal panel 03/15/19 Range/Units 05:47 Sodium 139 (137-145) mmol/L Potassium 4.2 (3.5-5.1) mmol/L Chloride 106 (98-107) mmol/L Carbon Dioxide 21 L (22-30) mmol/L BUN 36 H (9-20) mg/dL Creatinine 1.03 (0.66-1.25) mg/dL Glucose 241 H (74-99) mg/dL Calcium 10.0 (8.4-10.2) mg/dL Assessment and Plan Assessment: Mr. Dockery is a 64-year-old male admitted with shortness of breath and acute CHF exacerbation. Urology was counseled that her right-sided hydrocele. He indicated patient has been present for more than 2 years and it is bothersome to him. No urinary symptoms and denies any previous surgeries Plan: -I discussed with him in details the options including a right-sided hydrocelectomy and observation. He is symptomatic from it and a discussed with him that drainage would provide him no benefit. I discussed with him the way to fix a the hydrocele is to perform a hydrocelectomy which involves draining the fluid and removing the hydrocele sac. Discussed with them the risk of bleeding infections and injury to the testicles. He understood all the risks. I explained to him that if he would like to go ahead and schedule it he can see me in the office in 2 weeks and we'll go ahead and schedule him at that time. -Given his multiple medical problems he will need a medical clearance prior to proceeding with surgery. If this can be obtained during this admission then there will be no need to obtain it on him as an outpatient.
[2019-03-15] MEDS: CHOLECALCIFEROL 1,000 UNIT TAB PO SCH (20:09)
[2019-03-15] MEDS: ASCORBIC ACID 500 MG TAB PO SCH (20:09)
[2019-03-15 21:02] LABS: Glucose,Whole Blood 270 mg/dL (75-99)
--- NOTE | 2019-03-15 23:47 | PN ---
PROGRESS NOTE DATE OF SERVICE: 03/15/2019. He has been hemodynamically stable. He is less short of breath. PHYSICAL EXAMINATION: Respiratory rate is 20, pulse of 82, temperature 97.8, blood pressure 141/76, O2 saturation on room air is 96%. HEENT reveals pupils equal. Chest with decreased breath sounds with prolonged expiration. There is expiratory wheeze. Cardiovascular system revealed an S1, S2. Abdomen is soft. There is trace edema. White count is 23.9 1000, hemoglobin of 17.4. Sodium 139, potassium 4.2, chloride 106, bicarb 21, BUN 36, creatinine 1.03, glucose of 241. IMPRESSION: At this time: 1. Asthma with acute exacerbation. 2. Pneumonia. 3. Early congestive heart failure. 4. Polycythemia which may be due to hypoxemia from untreated obstructive sleep apnea. At this point in time, continue him on IV steroids, antibiotics, bronchodilators. Check a CT scan of the chest due to an abnormal chest x-ray and decide on further treatment. Keep him on GI and DVT prophylaxis. He was counseled regarding his condition and this approach. MMODL / IJN: [id number] /
[2019-03-16] MEDS: IPRATROPIUM-ALBUTEROL 3 ML NEB INHALATION PRN (02:24)
[2019-03-16 06:28] LABS: Glucose,Whole Blood 183 mg/dL (75-99)
[2019-03-16] MEDS: INSULIN ASPART (NovoLOG) 100 UNIT/ML VIAL SQ SCH ×4 (06:39→21:32)
[2019-03-16] MEDS: PANTOPRAZOLE 40 MG TABLET PO SCH (06:39)
[2019-03-16 06:53] LABS: Basophils # (A) 0.1 k/uL (0-0.2); Basophils % (A) 0 %; Eosinophils # (A) 0.1 k/uL (0-0.7); Eosinophils % (A) 1 %; HCT 54.5 % (39.0-53.0); HGB 17.8 gm/dL (13.0-17.5); Lymphocytes # (A) 0.4 k/uL (1.0-4.8); Lymphocytes % (A) 2 %; MCHC 32.7 g/dL (31.0-37.0); MCV 91.5 fL (80.0-100.0); Mean Platelet Volume 6.7; Monocytes # (A) 0.8 k/uL (0-1.0); Monocytes % (A) 4 %; Neutrophils # (A) 20.1 k/uL (1.3-7.7); Neutrophils % (A) 93 %; Platelet Count 223 k/uL (150-450); RBC 5.96 m/uL (4.30-5.90); RDW 13.4 % (11.5-15.5); WBC 21.6 k/uL (3.8-10.6)
[2019-03-16 07:16] LABS: African American GFR (CKD) >90 (>60 ml/min/1.73 sqM); Anion Gap 11 mmol/L; Blood Urea Nitrogen 35 mg/dL (9-20); Calcium 10.5 mg/dL (8.4-10.2); Carbon Dioxide 26 mmol/L (22-30); Chloride 105 mmol/L (98-107); Glucose 185 mg/dL (74-99); Potassium 4.3 mmol/L (3.5-5.1); Sodium 142 mmol/L (137-145)
[2019-03-16] MEDS: FORMOTEROL FUMARATE 20 MCG/2 ML NEBU INHALATION SCH ×2 (07:24→19:53)
[2019-03-16] MEDS: IPRATROPIUM-ALBUTEROL 3 ML NEB INHALATION SCH ×4 (07:24→19:53)
[2019-03-16] MEDS: BUDESONIDE 1 MG/2 ML NEBU INHALATION SCH ×2 (07:24→19:53)
[2019-03-16] MEDS: HEPARIN SODIUM,PORCINE 5,000 UNIT/ML 1 ML VIAL SQ SCH ×2 (08:21→20:34)
[2019-03-16] MEDS: methylPREDNISolone SOD SUCCI 40 MG/ML 1 ML VIAL IV SCH (08:22)
[2019-03-16] MEDS: ASPIRIN 325 MG TAB PO SCH (08:22)
[2019-03-16] MEDS: FUROSEMIDE 10 MG/ML 4 ML VIAL IV SCH (08:22)
[2019-03-16] MEDS: MULTIVITAMINS, THERA 1 EACH TAB PO SCH (08:22)
--- NOTE | 2019-03-16 09:27 | CT ---
EXAMINATION TYPE: CT chest wo con DATE OF EXAM: 03/16/2019 COMPARISON: Chest x-ray dated 03/15/2019 HISTORY: F/U CXR, possible mass CT DLP: 887.4 mGycm. Automated Exposure Control for Dose Reduction was Utilized. TECHNIQUE: CT scan of the thorax is performed without IV contrast. FINDINGS: LUNGS: There is complete right middle lobe atelectasis. Endobronchial obstruction by mass or mucous p lugging are considerations. Bronchoscopy is recommended. Scattered calcified pulmonary nodules are seen in the right middle lobe and left lung base as well as the right lung apex, sequela benign prior granulomatous disease. Some fullness along the right infrahilar airways in the posterior basilar segment of the right lower lobe appears as engorged vasculature on soft tissue algorithm. However fullness on the left is also s een on image 35. Reevaluation of these areas with follow-up CT with contrast is recommended to assess the adjacent vasculature. Nodularity is also seen adjacent to the left infrahilar consolidation with 5 mm subsolid pulmonary nodule on image 36 and 4 mm solid pulmonary nodule on image 37. Other scatte red subcentimeter nodules are seen surrounding the left consolidation such as on image 31. Superior segment left lower lobe pulmonary nodule on image 25 measures 1.1 x 1.2 cm. Increased densit y in the right upper lobe is also along a bronchovascular bundle. Pulmonary vascular engorgement is n oted with the right main pulmonary artery measuring 2.0 cm and left measuring 2.5 cm. Subpleural deposition of fat is seen at the lung bases. MEDIASTINUM: Lack of IV contrast is noted to limit evaluation for mediastinal and especially hilar ad enopathy. There are no definitive greater than 1 cm hilar or mediastinal lymph nodes. No cardiomega ly or pericardial effusion is seen. There are benign hilar and mediastinal calcified granulomas. Mode rate coronary calcifications are seen. Heart is mildly enlarged. OTHER: The gallbladder is filled with numerous gallstones, some of which are lamellated. Small hiatal hernia and partial gastrectomy change is noted. Fluid attenuated 1.2 cm right upper pole renal lesio n is seen. Artificial visualization of a hypoattenuated probable medial 1.5 cm left renal cyst. The s pleen is enlarged measuring 15.5 cm in longitudinal dimension. Few splenic benign granulomas are seen . The liver has a slightly coarsened appearance however is suboptimally evaluated without contrast. M ild multilevel degenerative changes of the spine. IMPRESSION: 1. Complete right middle lobe collapse. Bronchoscopy is recommended to evaluate for obstruction by en dobronchial mucous plugging or endobronchial mass. 2. Multiple bilateral pulmonary nodules, the most suspicious in the left lower lobe at 2 locations. T hese measure up to 1.1 cm. Full evaluation is recommended with CT thorax with contrast on a nonemerge nt basis as there are coursing adjacent vasculature. Further evaluation with an be recommended with P ET CT as there are some other benign nodules (granulomas). 3. Numerous gallstones filling the gallbladder. Other incidental findings within the abdomen are part ially visualized such as splenomegaly. 4. Moderate coronary artery calcifications, marker of coronary artery disease and mild cardiomegaly.
--- NOTE | 2019-03-16 10:43 | ECHOF ---
Referral Reason:pulmnary hypertension MEASUREMENTS -------- HEIGHT: 182.9 cm WEIGHT: 131.5 kg BP: 148/78 RVIDd: 4.1 cm (< 3.3) IVSd: 1.6 cm (0.6 - 1.1) LVIDd: 5.7 cm (3.9 - 5.3) LVPWd: 1.3 cm (0.6 - 1.1) IVSs: 2.2 cm LVIDs: 4.2 cm LVPWs: 1.6 cm LAESV Index (A-L): 40.96 ml/m Ao Diam: 3.3 cm (2.0 - 3.7) AV Cusp: 2.2 cm (1.5 - 2.6) MV EXCURSION: 21.910 mm (> 18.000) MV EF SLOPE: 62 mm/s (70 - 150) EPSS: 0.3 cm RAP: 5.00 mmHg RVSP: 23.42 mmHg FINDINGS -------- Atrial fibrillation. This was a technically difficult study with suboptimal views. Morbid Obesity There is moderate concentric left ventricular hypertrophy. Overall left ventricular systolic functi on is low-normal with, an EF between 50 - 55 %. Left ventricular fillimg pressure cannot be estimat ed due to Atrial fibrillation. The right ventricle is moderately enlarged. LA is severely dilated >40 ml/m2 RA appears enlarged. 5.0mg of Lumason was utilized for enhancement of images Interatrial and interventricular septum intact. The aortic valve was not well visualized. There is no evidence of aortic regurgitation. There is no evidence of aortic stenosis. Moderate mitral annular calcification present. Mild mitral regurgitation is present. Mild tricuspid regurgitation present. There is no evidence of pulmonary hypertension. The right v entricular systolic pressure, as measured by Doppler, is 23.42mmHg. There is no pulmonic regurgitation present. The aortic root size is normal. Normal inferior vena cava with normal inspiratory collapse consistent with estimated right atrial pre ssure of 5 mmHg. There is no pericardial effusion. CONCLUSIONS -------- 1. Atrial fibrillation. 2. This was a technically difficult study with suboptimal views. 3. Morbid Obesity 4. There is moderate concentric left ventricular hypertrophy. 5. Overall left ventricular systolic function is low-normal with, an EF between 50 - 55 %. 6. Left ventricular fillimg pressure cannot be estimated due to Atrial fibrillation. 7. The right ventricle is moderately enlarged. 8. LA is severely dilated >40 ml/m2 9. RA appears enlarged. 10. 5.0mg of Lumason was utilized for enhancement of images 11. Interatrial and interventricular septum intact. 12. The aortic valve was not well visualized. 13. There is no evidence of aortic regurgitation. 14. There is no evidence of aortic stenosis. 15. Moderate mitral annular calcification present. 16. Mild mitral regurgitation is present. 17. Mild tricuspid regurgitation present. 18. There is no evidence of pulmonary hypertension. 19. The right ventricular systolic pressure, as measured by Doppler, is 23.42mmHg. 20. There is no pulmonic regurgitation present. 21. The aortic root size is normal. 22. Normal inferior vena cava with normal inspiratory collapse consistent with estimated right atrial pressure of 5 mmHg. 23. There is no pericardial effusion. INSOLE DOUBLER: Maria G Hutchinson RDCS
[2019-03-16 11:24] LABS: Glucose,Whole Blood 187 mg/dL (75-99)
[2019-03-16] MEDS: methylPREDNISolone SOD SUCCI 125 MG/2 ML VIAL IV SCH ×3 (11:32→23:07)
--- NOTE | 2019-03-16 14:42 | PN ---
PROGRESS NOTE DATE OF SERVICE: 03/16/2019 Patient is a 64-year-old male who is seen sitting up in a chair. He is awake, alert, does state that he is coughing and able to bring up some sputum, which he was unable to do when he came in. Patient denies any pain. Denies any worsening shortness of breath. Patient is afebrile hemodynamically stable in no acute distress. PHYSICAL EXAM: Vital signs, temp 98.2, heart rate is 70, respiratory rate 18, blood pressure is 136/80, O2 sats 96% on room air. HEENT: Head is normocephalic, atraumatic. Neck is supple. Trachea is midline. LUNGS: With diminished breath sounds and scattered expiratory wheezes. HEART: S1, S2 are heard. Irregular not tachycardic. ABDOMEN: Soft. Bowel sounds are positive. Extremities with trace edema. NEUROLOGIC: Patient is awake and alert. LABS: White count is 21.6. Hemoglobin 17.8, hematocrit 54.5, platelets 223,000. Sodium is 142, potassium is 4.3, chloride 105, CO2 is 26, anion gap is 11, BUN is 35, creatinine 0.96, glucose 185, calcium is 10.5. IMAGING: Chest CT shows complete right a middle right middle lobe collapse. Bronchoscopy is recommended to evaluate for obstruction by endobronchial mucous plugging or endobronchial mass. Multiple bilateral pulmonary nodules. Further evaluation can be recommended with a recommended with further evaluation recommended with PET-CT numerous gallstones filling the gallbladder. Other incidental findings within the abdomen are partially visualized such as splenomegaly, moderate coronary calloused artery calcifications, gris of coronary artery disease and mild cardiomegaly. IMPRESSION: 1. At this time asthma with acute exacerbation. 2. Right middle lobe atelectasis. 3. Pneumonia. 4. Early congestive heart failure. 5. Polycythemia. 6. Hypercalcemia. PLAN: 1. Continue current medications which him but have been reviewed. 2. Continue bronchodilators, aerosolized steroids and IV Solu-Medrol 60 mg q.6 hours. Will add flutter valve. Continue pulmonary hygiene. Continue oxygen to maintain sats greater than or equal to 92%. The patient will need a PET scan as an outpatient at which time the patient will also have a bronchoscopy scheduled as it is high risk to do bronchoscopy while the airways are significantly inflamed. The patient was counseled on the plan. We will continue to continue to follow patient closely with you making further changes as necessary. MMODL / IJN: [id number] /
[2019-03-16 16:42] LABS: Glucose,Whole Blood 271 mg/dL (75-99)
[2019-03-16] MEDS: AZITHROMYCIN 500 MG TAB PO SCH (17:20)
[2019-03-16] MEDS: CHOLECALCIFEROL 1,000 UNIT TAB PO SCH (20:34)
[2019-03-16] MEDS: ASCORBIC ACID 500 MG TAB PO SCH (20:34)
[2019-03-16 21:11] LABS: Glucose,Whole Blood 182 mg/dL (75-99)
[2019-03-16 23:43] VITALS: RESP 18
[2019-03-17] MEDS: IPRATROPIUM-ALBUTEROL 3 ML NEB INHALATION PRN (03:43)
[2019-03-17 06:15] LABS: Glucose,Whole Blood 204 mg/dL (75-99)
[2019-03-17] MEDS: PANTOPRAZOLE 40 MG TABLET PO SCH (06:18)
[2019-03-17] MEDS: INSULIN ASPART (NovoLOG) 100 UNIT/ML VIAL SQ SCH (06:18)
[2019-03-17] MEDS: methylPREDNISolone SOD SUCCI 125 MG/2 ML VIAL IV SCH (06:18)
[2019-03-17] MEDS: BUDESONIDE 1 MG/2 ML NEBU INHALATION SCH (08:28)
[2019-03-17] MEDS: FORMOTEROL FUMARATE 20 MCG/2 ML NEBU INHALATION SCH (08:28)
[2019-03-17] MEDS: IPRATROPIUM-ALBUTEROL 3 ML NEB INHALATION SCH (08:28)
[2019-03-17] MEDS: FUROSEMIDE 10 MG/ML 4 ML VIAL IV SCH (08:52)
[2019-03-17] MEDS: ASPIRIN 325 MG TAB PO SCH (08:52)
[2019-03-17] MEDS: HEPARIN SODIUM,PORCINE 5,000 UNIT/ML 1 ML VIAL SQ SCH (08:52)
[2019-03-17] MEDS: MULTIVITAMINS, THERA 1 EACH TAB PO SCH (08:52)
--- NOTE | 2019-03-17 09:05 | PN ---
PROGRESS NOTE DATE OF SERVICE: 03/17/2019 He has been hemodynamically stable. He is less short of breath. PHYSICAL EXAMINATION: His respiratory rate is 18, pulse rate of 74, temperature 97.7 degrees Fahrenheit, blood pressure 128/82, O2 saturation on room air is 97%. HEENT: Unremarkable. CHEST: Reveals expiratory wheeze. CARDIOVASCULAR SYSTEM: Reveals an S1, S2. ABDOMEN: Soft. There is no pedal edema. CT scan of the chest was personally reviewed by me. Images were reconstructed using virtual bronchoscopy software. There was some scattered calcified pulmonary nodules in the right middle lobe. The left lung base in the right lung apex consistent consistent prior granulomatous disease. There is some fullness of the right infrahilar airways with collapse of the middle lobe. There is extensive cobblestoning of the airways consistent with chronic airway inflammation. There are numerous gallstones filling the gallbladder that are radiopaque. There is moderate coronary artery calcification. IMPRESSION: At this time. 1. Severe asthma, likely with chronic obstructive pulmonary disease with acute exacerbation. 2. Acute respiratory failure. 3. Pneumonia, which may be postobstructive. 4. Possible lung mass obstructing the right middle lobe versus right middle lobe syndrome from previous inflammation. At this point in time, would keep him on a prednisone taper, which can be done as an outpatient with bronchodilators and antibiotics. Have him seen in our office within 1- 2 days. Set him up for a PET scan and if it is positive, he may require direct visualization and a bronchoscopy. He was counseled regarding his condition and I did discuss my thoughts with the patient's primary care team. I would like to thank you for giving me the privilege of participating in his care. MMODL / IJN: [id number] /
[2019-03-17 09:08] VITALS: BP 133/80; PULSE 69; TEMP 98.2
--- NOTE | 2019-03-17 10:29 | P.DS ---
Providers Date of admission: 03/13/19 15:38 Expected date of discharge: 03/17/19 Attending physician: Cristo Bhakta Consults: 03/13/19 16:12 Consult Physician Routine Consulting Provider: Piotr Lemus Consult Reason/Comments: copd Do you want consulting provider notified?: Yes 03/15/19 09:39 Consult Physician Routine Consulting Provider: Rj Schaeffer Consult Reason/Comments: Right Hydrocele Do you want consulting provider notified?: Yes Primary care physician: Cristo Bhakta Hospital Course: Final Diagnoses: Bilateral pneumonia, possible gram-negative, right-sided consolidation-possible underlying mass, pulmonary following; Possible Acute bronchial asthma exacerbation Suspect congestive heart failure, likely acute on chronic diastolic heart failure Morbid obesity and likely obstructive sleep apnea Paroxysmal chronic atrial fibrillation, Asthmatic bronchitis Abnormal LFTs likely multifactorial heart failure versus fatty infiltration Right hydrocele Recent hernia repair Hospital course:This is 63-year-old gentleman admitted with shortness of breath, bilateral pneumonia, possible acute CHF exacerbation and multiple other medical issues. Chest x-ray reporting stable right-sided consolidation with follow-up recommended to exclude underlying mass, left basilar subsegmental consolidation stable. Maintained on nebulized bronchodilators, antibiotics and steroids with significant clinical improvement. Afebrile, maintaining O2 sats in the high 90s on room air. Complains of right testicle -"grapefruit size".... Right hydrocele present. Denies chest pain, palpitations or increased shortness of breath. Occasional productive cough with shaw sputum. Denies lightheadedness, dizziness or focal deficits. 03/17/19 echo reporting low normal preserved LV function, EF 50-55%, severely dilated LA , no evidence of aortic regurgitation, aortic stenosis, mild mitral and tricuspid regurgitation, no pulmonary hypertension. Chest CT reporting com plete right middle lobe collapse, possibly mucus plugging versus mass, multiple bilateral pulmonary nodules, numerous gallstones, splenomegaly. Evaluated by pulmonary/urology. Pulmonary suspecting mucous plugging, calcified lymph nodes in recommending outpatient PET scan with potential diagnostic bronchoscopy pending PET scan results. Per pulmonary patient to be discharged home on prednisone taper, starting with 60 mg daily 3 days with Ceftin 5 days, along with patient's nebulized bronchodilators. Currently on full strength aspirin with no other anticoagulation at this time regarding upcoming bronchoscopy. Urology recommends outpatient follow-up with options of right-sided hydrocelectomy possibly in 2 weeks after pulmonary workup completed. Patient will require medical clearance prior to urology procedure. Patient is being discharged home in a stable condition with guarded prognosis. Exam PHYSICAL EXAM: GENERAL: Alert and oriented 3, no acute distress CARDIOVASCULAR: S1, S2 regular. No murmur RESPIRATION: Breath sounds diminished in the bases. Right-sided expiratory wheeze. ABDOMEN: Soft, nontender . No guarding. no masses palpable. Bowel sounds heard. NERVOUS SYSTEM: No focal deficits. The impression and plan of care has been dictated as directed. : I performed a history and examination of this patient, discussed the same with the dictator. I agree with the dictator's note ,documented as a scribe. Any additional findings or plans will be noted. Patient Condition at Discharge: Stable Plan - Discharge Summary Discharge Rx Participant: No New Discharge Prescriptions: New Cefuroxime Axetil [Ceftin] 500 mg PO BID #10 tab predniSONE See Taper PO DIRECTED #63 tab Pantoprazole [Protonix] 40 mg PO AC-BRKFST #30 tablet. Furosemide [Lasix] 40 mg PO DAILY #30 tablet Continue Multivitamins, Thera [Multivitamin (formulary)] 1 tab PO DAILY Aspirin EC [Ecotrin] 325 mg PO DAILY Lisinopril-Hctz 20-12.5 mg [Zestoretic 20-12.5] 0.5 tab PO DAILY PRN PRN Reason: HIGH BP Cholecalciferol [Vitamin D3 (25 Mcg = 1000 Iu)] 1,000 unit PO HS Ascorbic Acid [Vitamin C] 500 mg PO HS Changed Albuterol Nebulized [Ventolin Nebulized] 2.5 mg INHALATION QID #0 Discharge Medication List Multivitamins, Thera [Multivitamin (formulary)] 1 tab PO DAILY 04/28/17 [History] Ascorbic Acid [Vitamin C] 500 mg PO HS 03/13/19 [History] Aspirin EC [Ecotrin] 325 mg PO DAILY 03/13/19 [History] Cholecalciferol [Vitamin D3 (25 Mcg = 1000 Iu)] 1,000 unit PO HS 03/13/19 [History] Lisinopril-Hctz 20-12.5 mg [Zestoretic 20-12.5] 0.5 tab PO DAILY PRN 03/13/19 [History] Albuterol Nebulized [Ventolin Nebulized] 2.5 mg INHALATION QID #0 03/17/19 [Rx] Cefuroxime Axetil [Ceftin] 500 mg PO BID #10 tab 03/17/19 [Rx] Furosemide [Lasix] 40 mg PO DAILY #30 tablet 03/17/19 [Rx] Pantoprazole [Protonix] 40 mg PO AC-BRKFST #30 tablet. 03/17/19 [Rx] predniSONE See Taper PO DIRECTED #63 tab 03/17/19 [Rx] Follow up Appointment(s)/Referral(s): Cristo Bhakta DO [Primary Care Provider] - 03/23/19 2:00 pm (Friday) Jacek Hubbard MD [STAFF PHYSICIAN] - 03/30/19 10:00 am (Friday) Piotr Lemus MD [STAFF PHYSICIAN] - 03/19/19 4:15 pm (Friday -office will set up a PET scan for you) Activity/Diet/Wound Care/Special Instructions: Please schedule PET scan as soon as possible as per MATEO Lemus, prior to birgit kevin.
== END 2019-03-17 10:53 | disposition home or self-care (01) | DRG 177 ==
LOC: EC 10:51 → 1SOBS 13:18 → OBSVTOIN 15:38 → 3SCARD 16:15
PROVIDERS: ADMIT Family Medicine; ATTEND Family Medicine
DX: J15.6 Pneumonia due to other Gram-negative bacteria (principal); I50.33 Acute on chronic diastolic (congestive) heart failure; J96.00 Acute respiratory failure, unspecified whether with hypoxia or hypercapnia; E87.1 Hypo-osmolality and hyponatremia; J44.0 Chronic obstructive pulmonary disease with (acute) lower respiratory infection; J44.1 Chronic obstructive pulmonary disease with (acute) exacerbation; J45.901 Unspecified asthma with (acute) exacerbation; J98.11 Atelectasis; Z68.41 Body mass index [BMI] 40.0-44.9, adult; J18.9 Pneumonia, unspecified organism; I11.0 Hypertensive heart disease with heart failure; I48.0 Paroxysmal atrial fibrillation; R16.1 Splenomegaly, not elsewhere classified; D75.1 Secondary polycythemia; E66.01 Morbid (severe) obesity due to excess calories; E83.52 Hypercalcemia; K76.0 Fatty (change of) liver, not elsewhere classified; G47.33 Obstructive sleep apnea (adult) (pediatric); K80.20 Calculus of gallbladder without cholecystitis without obstruction; N43.3 Hydrocele, unspecified; R94.5 Abnormal results of liver function studies; R91.8 Other nonspecific abnormal finding of lung field; Z79.82 Long term (current) use of aspirin; Z79.899 Other long term (current) drug therapy; Z98.84 Bariatric surgery status; Z90.49 Acquired absence of other specified parts of digestive tract; Z87.891 Personal history of nicotine dependence; Z83.3 Family history of diabetes mellitus; Z82.49 Family history of ischemic heart disease and other diseases of the circulatory system; Z84.89 Family history of other specified conditions
CPT/HCPCS: 36415; 71045; 71046; 71250; 80048; 80053; 83605; 83880; 84484; 85025; 85379; 85610; 85730; 87040; 87502; 93005; 93306; 94640; 94667; 96365; 96375; 99285

== ENCOUNTER → 2019-04-29 | Outpatient (CLI) | payer OTHER ==
[2019-04-29 09:28] LABS: Basophils # (A) 0.1 k/uL (0-0.2); Basophils % (A) 1 %; Eosinophils # (A) 0.2 k/uL (0-0.7); Eosinophils % (A) 2 %; HCT 52.1 % (39.0-53.0); HGB 16.5 gm/dL (13.0-17.5); Lymphocytes # (A) 0.4 k/uL (1.0-4.8); Lymphocytes % (A) 5 %; MCH 29.6 pg (25.0-35.0); MCHC 31.7 g/dL (31.0-37.0); MCV 93.4 fL (80.0-100.0); Mean Platelet Volume 7.6; Monocytes # (A) 0.5 k/uL (0-1.0); Monocytes % (A) 6 %; Neutrophils # (A) 6.7 k/uL (1.3-7.7); Neutrophils % (A) 84 %; Platelet Count 196 k/uL (150-450); RBC 5.58 m/uL (4.30-5.90); RDW 14.5 % (11.5-15.5); WBC 7.9 k/uL (3.8-10.6)
[2019-04-29 09:36] LABS: Albumin 4.1 g/dL (3.5-5.0); Calcium 9.8 mg/dL (8.4-10.2); Potassium 4.4 mmol/L (3.5-5.1); Total Bilirubin 2.3 mg/dL (0.2-1.3); Total Protein 6.8 g/dL (6.3-8.2)
== END | disposition home or self-care (01) ==
LOC: LABPAT 09:07
PROVIDERS: ATTEND Urology
DX: Z01.812 Encounter for preprocedural laboratory examination (principal); N43.3 Hydrocele, unspecified
CPT/HCPCS: 80053; 85025

== ENCOUNTER 2019-05-06 13:35 | Day surgery (SDC) | payer OTHER ==
[2019-05-03 10:48] VITALS: BMI 40.6
--- NOTE | 2019-05-05 14:17 | P.HPIHPCON ---
History of Present Illness H&P Date: 05/06/19 Chief Complaint: right hydrocele Mr Evans is 64 yo male with hx of right sided symptomatic hydrocele.. I discussed with him the option of right sided hydrocelectomy Discussed the risk which include but not limited to bleeding, infection, injury to the testicle , risk of recurrence. Also discussed risk from anesthesia which include but not limited to heart attack, strokes, blood clots and even loss of life. He understood all risk and agreed to proceed with right sided hydrocelectomy Consent for Procedure: I have explained the operation/procedure to the patient, including the risks, benefits, side effects, alternative therapies (including not receiving the proposed treatment or service), the likelihood of the patient achieving his/her goals, and potential recuperation problems for the procedure/sedation/analgesia, as well as any blood products, if indicated. I also explained to the patient the risks, benefits and side effects of the alternatives, as well as the risks related to not receiving the proposed procedure, care, treatment, or services. Past Medical History Past Medical History: Atrial Fibrillation, COPD, GERD/Reflux, Pneumonia Additional Past Medical History / Comment(s): rt hydrocele History of Any Multi-Drug Resistant Organisms: None Reported Past Surgical History: Appendectomy, Bariatric Surgery, Hernia Repair, Tonsillectomy Additional Past Surgical History / Comment(s): Colonoscopy, Inguinal hernia repair, bariactric sleeve Past Anesthesia/Blood Transfusion Reactions: Motion Sickness Smoking Status: Never smoker - Past Family History Mother Family Medical History: Deep Vein Thrombosis (DVT) Medications and Allergies Home Medications Medication Instructions Recorded Confirmed Type Multivitamins, Thera [Multivitamin 1 tab PO DAILY 04/28/17 05/03/19 History (formulary)] Ascorbic Acid [Vitamin C] 500 mg PO HS 03/13/19 05/03/19 History Aspirin EC [Ecotrin] 325 mg PO DAILY 03/13/19 05/03/19 History Cholecalciferol [Vitamin D3 (25 1,000 unit PO HS 03/13/19 05/03/19 History Mcg = 1000 Iu)] Lisinopril-Hctz 20-12.5 mg 0.5 tab PO DAILY PRN 03/13/19 05/03/19 History [Zestoretic 20-12.5] Furosemide [Lasix] 40 mg PO DAILY #30 tablet 03/17/19 05/03/19 Rx Pantoprazole [Protonix] 40 mg PO MOBRKFST #30 tablet. 03/17/19 05/03/19 Rx Albuterol Nebulized [Ventolin 2.5 mg INHALATION BID 05/03/19 05/03/19 History Nebulized] Allergies Allergy/AdvReac Type Severity Reaction Status Date / Time No Known Allergies Allergy Verified 05/03/19 10:37 Surgical - Exam - General well developed, well nourished, no distress, no pain - Respiratory normal expansion, normal respiratory effort - Abdomen Abdomen: soft, non tender, no distended - Genitourinary right: scrotal mass/hydrocele (hydrocele) Assessment and Plan Assessment: 64 yo male with hx of right sided hydrocele -OR for hydrocelectomy
[~2019-05-06 13:35] MED LIST changes: +DEXAMETHASONE SOD PHOSPHATE 10 MG/ML 1 ML VIAL IV ONE; +LACTATED RINGERS 1,000 ML IV SCH; +MIDAZOLAM 2 MG/2 ML VIAL IV PRN; +ONDANSETRON 4 MG/2 ML VIAL IVP ONE; +SCOPOLAMINE 1.5MG/72HR PATCH TRANSDERM ONE; -SUCCINYLCHOLINE CHLORIDE VIAL 200 MG/10 ML VIAL IV ONE; +ceFAZolin 3 GM in SODIUM CHLORIDE 0.9% 100 ML IVPB ONE
[2019-05-06 14:00] VITALS: RESP 18
[2019-05-06] MEDS ORDERED: LIDOCAINE 1% 20 ML VIAL (10MG/ML) FOR IV START INTRADERMA ONE (14:09)
[2019-05-06] MEDS ORDERED: PHENYLEPHRINE-0.9% NACL SYG 1 MG/10 ML SYRINGE ONE (14:57)
[2019-05-06] MEDS ORDERED: SUCCINYLCHOLINE CHLORIDE VIAL 200 MG/10 ML VIAL IV ONE (14:57)
[2019-05-06] MEDS ORDERED: PROPOFOL 10 MG/ML 20 ML VIAL IV ONE (14:57)
[2019-05-06] MEDS ORDERED: MIDAZOLAM 2 MG/2 ML VIAL ONE (14:57)
[2019-05-06] MEDS ORDERED: fentaNYL (PF) 50 MCG/ML 2 ML AMP ONE (14:57)
[2019-05-06] MEDS ORDERED: LIDOCAINE 1% INJ 10MG/ML (20 ML MDV) ONE (14:57)
[2019-05-06] MEDS ORDERED: BUPIVACAINE (PF) 0.5% 30 ML VIAL SQ ONE ×2 (15:07)
[2019-05-06] MEDS ORDERED: BACITRACIN 500 UNIT/GM OINT 28.4 GM TUBE TOPICAL ONE (15:43)
[2019-05-06] MEDS ORDERED: LACTATED RINGERS 1,000 ML IV ONE (15:44)
--- NOTE | 2019-05-06 16:12 | P.OP ---
Date of Procedure: 05/06/19 Preoperative Diagnosis: right hydrocele Postoperative Diagnosis: same Procedure(s) Performed: right hydrocelectomy Implants: none Anesthesia: PHONG Surgeon: Jacek Hubbard Estimated Blood Loss (ml): 25 Pathology: other (hydrocele sac) Condition: stable Disposition: PACU Indications for Procedure: Mr Evans is 64 yo male with hx of right sided symptomatic hydrocele.. I discussed with him the option of right sided hydrocelectomy Discussed the risk which include but not limited to bleeding, infection, injury to the testicle , risk of recurrence. Also discussed risk from anesthesia which include but not limited to heart attack, strokes, blood clots and even loss of life. He understood all risk and agreed to proceed with right sided hydrocelectomy Operative Findings: large right sided hydrocele Description of Procedure: The patient was brought to the operating room , general anesthesia was induced. He was prepped and draped in sterile fashion and placed in the supine position. An incision was made along the right hemiscrotum. The dartos was incised using cautery. At this point the hydrocele sac was encountered. The sac was dissected off of the surrounding tissue using a combination of blunt and electrocautery. at this point the hydrocele sac was completely freed and delivered to the surgical field. An incision was made in the hydrocele sac and approximately 450 mL was drained from the hydrocele. The hydrocele sac was excised and sent to pathology. The edges of the hydrocele sac was suture ligated using 4-0 Vicryl. Hemostasis was achieved using electrocautery .The dartos layer was closed using 4-0 Vicryl. The skin was closed in 2 layer using 4-0 Vicryl and 4-0 chromic in running fashion. Approximately 3 mL of 0.5% Marcaine was injected. The patient was awakened from anesthesia and taken to recovery room in stable condition
[2019-05-06 16:26] VITALS: TEMP 97
[2019-05-06] MEDS: HYDROmorphone 0.5 MG/0.5 ML SYRINGE IVP PRN ×2 (16:40→16:47)
[2019-05-06 17:35] VITALS: BP 118/72; PULSE 70
== END 2019-05-06 17:42 | disposition home or self-care (01) ==
LOC: OR 13:35
PROVIDERS: ATTEND Urology
DX: N43.3 Hydrocele, unspecified (principal); I11.0 Hypertensive heart disease with heart failure; I50.9 Heart failure, unspecified; I48.91 Unspecified atrial fibrillation; E66.9 Obesity, unspecified; J44.9 Chronic obstructive pulmonary disease, unspecified; K21.9 Gastro-esophageal reflux disease without esophagitis; Z87.01 Personal history of pneumonia (recurrent); Z90.49 Acquired absence of other specified parts of digestive tract; Z98.84 Bariatric surgery status; Z98.890 Other specified postprocedural states; Z87.19 Personal history of other diseases of the digestive system; Z82.49 Family history of ischemic heart disease and other diseases of the circulatory system; Z79.82 Long term (current) use of aspirin; Z79.899 Other long term (current) drug therapy; Z68.41 Body mass index [BMI] 40.0-44.9, adult
CPT/HCPCS: 55040; J2250; J0330; J1100; J0690; J2405; J2001; J3010; J2370; J2704; J1170

== ENCOUNTER 2020-08-07 09:48 | Emergency (ER) | payer OTHER ==
[2020-08-07] MEDS ORDERED: IBUPROFEN 600 MG TAB PO STA (10:06)
[2020-08-07] MEDS ORDERED: ACETAMINOPHEN TAB 325 MG TAB PO STA (10:06)
--- NOTE | 2020-08-07 10:09 | ED ---
General Adult HPI - General Chief complaint: Shortness of Breath Stated complaint: SOB Time Seen by Provider: 08/07/20 09:59 Source: patient, RN notes reviewed Mode of arrival: wheelchair Limitations: physical limitation - History of Present Illness Initial comments: Patient is a 65-year-old male that presents to the emergency department complaining of shortness of breath for the last week. He noted that over the last several days it became worse and he did have a mild intermittent dry cough that was nonproductive. He does have a history of COPD. She denied being tested for covert recently but came to the emergency room to get evaluated. He was sitting up in bed in no apparent distress or pain, he was just asking for a glass of water. He denied any chest pain headache nausea vomiting diarrhea constipation productive cough. - Related Data Home Medications Medication Instructions Recorded Confirmed Lisinopril-Hctz 20-12.5 mg 1 tab PO DAILY 03/13/19 08/07/20 [Zestoretic 20-12.5] Albuterol Nebulized [Ventolin 2.5 mg INHALATION RT-QID 05/03/19 08/07/20 Nebulized] Multivitamins, Thera [Multivitamin 1 tab PO DAILY 08/07/20 08/07/20 (formulary)] Allergies Allergy/AdvReac Type Severity Reaction Status Date / Time No Known Allergies Allergy Verified 08/07/20 11:17 Review of Systems ROS Statement: Those systems with pertinent positive or pertinent negative responses have been documented in the HPI. ROS Other: All systems not noted in ROS Statement are negative. Past Medical History Past Medical History: Atrial Fibrillation, COPD, GERD/Reflux, Pneumonia Additional Past Medical History / Comment(s): rt hydrocele History of Any Multi-Drug Resistant Organisms: None Reported Past Surgical History: Appendectomy, Bariatric Surgery, Hernia Repair, Tonsillectomy Additional Past Surgical History / Comment(s): Colonoscopy, Inguinal hernia rep air, bariactric sleeve Past Anesthesia/Blood Transfusion Reactions: Motion Sickness Past Psychological History: No Psychological Hx Reported Smoking Status: Never smoker Past Alcohol Use History: Occasional Past Drug Use History: None Reported - Past Family History Mother Family Medical History: Deep Vein Thrombosis (DVT) General Exam Limitations: physical limitation General appearance: alert, in no apparent distress, obese Head exam: Present: atraumatic, normocephalic, normal inspection Eye exam: Present: normal appearance, PERRL, EOMI. Absent: scleral icterus, conjunctival injection, periorbital swelling ENT exam: Present: normal exam, mucous membranes moist Neck exam: Present: normal inspection. Absent: tenderness, meningismus, lymphadenopathy Respiratory exam: Present: normal lung sounds bilaterally. Absent: respiratory distress, wheezes, rales, rhonchi, stridor Cardiovascular Exam: Present: regular rate, normal rhythm, normal heart sounds. Absent: systolic murmur, diastolic murmur, rubs, gallop, clicks GI/Abdominal exam: Present: soft, normal bowel sounds. Absent: distended, tenderness, guarding, rebound, rigid Extremities exam: Present: normal inspection, full ROM, normal capillary refill. Absent: tenderness, pedal edema, joint swelling, calf tenderness Neurological exam: Present: alert, oriented X3, CN II-XII intact Psychiatric exam: Present: normal affect, normal mood Skin exam: Present: warm, dry, intact, normal color. Absent: rash Course Vital Signs 08/07/20 08/07/20 08/07/20 09:53 10:30 11:25 Temperature 100.1 F H Pulse Rate 68 79 Respiratory 20 22 Rate Blood Pressure 131/67 105/57 O2 Sat by Pulse 94 L 94 L 94 L Oximetry 08/07/20 12:50 Temperature 98.6 F Pulse Rate 71 Respiratory 20 Rate Blood Pressure 122/64 O2 Sat by Pulse 95 Oximetry Medical Decision Making - Medical Decision Making 65-year-old male with history of COPD complaining of shortness of breath onset approximately 1 week ago. Chest x-ray, rapid Covid test, 650 mg of Tylenol and 600 mg Motrin ordered Covid-positive. Patient wants to do the monoclonal antibody therapy. Case discussed with Dr. Truong, patient to discharge home - Lab Data Lab Results 08/07/20 Range/Units 10:24 Coronavirus (PCR) Detected A (Not Detectd) - Radiology Data Radiology results: report reviewed, image reviewed Chest x-ray: Underlying infiltrates or increasing nodularity or both possible. Disposition Clinical Impression: COVID-19 Disposition: HOME SELF-CARE Condition: Stable Instructions (If sedation given, give patient instructions): Coronavirus Disease 2019 (COVID-19) Additional Instructions: Please return to the Emergency Department if symptoms worsen or any other concerns. Follow-up with primary care in 3-5 days. Take [id number] anti-inflammatories for symptomatic control. Increase oral fluid intake. Rest Is patient prescribed a controlled substance at d/c from ED?: No Referrals: Cristo Bhakta DO [Primary Care Provider] - 1-2 days Time of Disposition: 13:41
--- NOTE | 2020-08-07 11:05 | XR ---
EXAMINATION TYPE: XR chest 2V DATE OF EXAM: 08/07/2020 COMPARISON: 03/15/2019 HISTORY: 65 year-old male shortness of breath TECHNIQUE: PA and lateral views FINDINGS: Heart is upper limits of normal in size. Aorta and pulmonary vasculature within normal limits. Increa sed interstitial density and subtle multifocal opacities, possible underlying nodules, increased from 03/15/2019. IMPRESSION: Recommend correlation with any established diagnosis. Subtle multifocal densities are present, possib le underlying multiple nodules. Nodular opacities were seen on the patient's prior 03/16/2019 CT but d ensities appear increased from that time. Underlying infiltrates or increasing nodularity are both po ssible.
[2020-08-07] MEDS ORDERED: BAMLANIVIMAB 700 MG in SODIUM CHLORIDE 0.9% 50 ML IVPB ONE (12:15)
[2020-08-07 12:52] VITALS: RESP 20
[2020-08-07 14:31] VITALS: BP 121/72; PULSE 69; TEMP 98.3
== END 2020-08-07 14:31 | disposition home or self-care (01) ==
LOC: EC 09:48
DX: U07.1 COVID-19 (principal); I48.91 Unspecified atrial fibrillation; J44.9 Chronic obstructive pulmonary disease, unspecified; K21.9 Gastro-esophageal reflux disease without esophagitis
CPT/HCPCS: 87635; 71046; 99285; 96365; Q0239

== ENCOUNTER → 2021-02-26 | Outpatient (CLI) | payer MEDICARE ==
--- NOTE | 2021-02-26 16:29 | XR ---
EXAMINATION TYPE: XR chest 2V DATE OF EXAM: 02/26/2021 COMPARISON: 08/07/2020 TECHNIQUE: PA and lateral views submitted. HISTORY: Shortness of breath FINDINGS: Heart is enlarged and there is a coarsened interstitial pattern with subsegmental changes along the r ight lung base. Masslike densities seen bilaterally greater on the right are stable. IMPRESSION: 1. Bilateral pulmonary nodules with masslike density right upper lobe stable. Underlying neoplastic d isease in the differential diagnosis. 2. Cardiomegaly correlate for interstitial pneumonitis or venous congestion right basilar infiltrate.
== END | disposition home or self-care (01) ==
LOC: RADXRMAIN 15:05
PROVIDERS: ATTEND Nurse Practitioner Family
DX: R91.8 Other nonspecific abnormal finding of lung field (principal); I51.7 Cardiomegaly
CPT/HCPCS: 71046

== ENCOUNTER → 2021-03-09 | Outpatient (CLI) | payer MEDICARE, OTHER ==
--- NOTE | 2021-03-09 11:14 | CT ---
EXAMINATION TYPE: CT chest w con DATE OF EXAM: 03/09/2021 COMPARISON: 03/16/2019 HISTORY: 66-year-old male R91.1, Pulmonary Nodule TECHNIQUE: Contiguous axial scanning of the chest after the administration of 100 mL of Isovue 300. Coronal/sagittal reconstructions performed. CT DLP: 1100.60mGycm. Automatic exposure control utilized for a dose reduction. FINDINGS: Heart normal size without pericardial effusion. Dense mitral annular calcifications. Mild aortic valv ular calcifications. Proximal to mid LAD coronary artery calcifications. Ectatic upper descending thoracic aorta 3.6 cm. Calcified mediastinal and hilar lymph nodes are redemonstrated. Some of these nodes are borderline en larged suggestive subcarinal lymph node measuring 1.5 cm in lower right paratracheal lymph node measu ring 1.5 cm as well. Upper left paraesophageal lymph node measures 1.4 cm. Lower right paraesophage al lymph node measures 1.7 cm versus 1.3 cm, previously. Otherwise, no obvious progressive lymphadeno yelena. There is a small left pleural effusion and trace effusion on the right. Diffuse reticulonodular interstitial changes are redemonstrated. The previous right middle lobe colla pse has resolved. There is a masslike opacity redemonstrated, for example, posterior left upper lobe measuring 1.4 cm, unchanged. Posterior right upper lobe measuring 2.2 x 1.3 cm versus 2.0 x 1.1 cm, previously. Posterior right lower lobe 3.9 x 2.2 cm versus 2.9 x 1.4 cm, previously. Medial left lower lobe unchanged at 2.5 cm. A few scattered 5 mm and smaller nodularity appear to be new. Additional scattered calcified nodules are also demonstrated. Small hiatal hernia. Postsurgical change of sleeve gastrectomy. Innumerable gallstones packing the ga llbladder redemonstrated. Small renal cortical cysts measuring up to 1.8 cm. Bones: Mild degenerative disc disease mid and lower thoracic spine. No osseous destructive process. IMPRESSION: 1. Redemonstrated diffuse interstitial changes and some reticulonodular density. Calcified mediastina l and hilar lymphadenopathy largely unchanged. One along the lower right paraesophageal region is sli ghtly larger at 1.7 cm versus 1.3 cm back in 2019. Correlate for prior granulomatous disease such as sarcoidosis, prior atypical infection, or pneumoconiosis. 2. Bilateral masslike opacities are redemonstrated. Some of these are slightly larger now, for exampl e, right lower lobe measuring 3.9 cm versus 2.9 cm, previously. The fairly indolent behavior favors a benign etiology. Recommend pulmonary medicine referral to establish a diagnosis. 3. A few scattered 5 mm and smaller pulmonary nodules are new. 4. The previous right middle lobe collapse has resolved. There are now trace pleural effusions. 5. Small hiatal hernia, previously sleeve gastrectomy, and innumerable gallstones packing the gallbla dder lumen.
== END | disposition home or self-care (01) ==
LOC: RADCTMAIN 07:28
PROVIDERS: ATTEND Family Medicine
DX: R91.8 Other nonspecific abnormal finding of lung field (principal); R59.0 Localized enlarged lymph nodes; K44.9 Diaphragmatic hernia without obstruction or gangrene
CPT/HCPCS: 71260; Q9967

== ENCOUNTER → 2022-10-21 | Outpatient (CLI) | payer MEDICARE ==
--- NOTE | 2022-10-21 10:02 | XR ---
EXAMINATION TYPE: XR tibia fibula LT DATE OF EXAM: 10/21/2022 COMPARISON: NONE HISTORY: Pain TECHNIQUE: Two views are submitted. FINDINGS: The osseous structures are intact. The joint spaces are preserved. Moderate-sized calcaneal spurs. Spurring along the patella with narrowing of the medial compartment of the knee joint and hypertrophi c spurring. Soft tissue edema noted. IMPRESSION: 1. No acute osseous abnormality.
--- NOTE | 2022-10-21 10:16 | XR ---
EXAMINATION TYPE: XR foot complete LT DATE OF EXAM: 10/21/2022 COMPARISON: NONE HISTORY: Pain TECHNIQUE: Three views are submitted. FINDINGS: The osseous structures are intact. There is no acute fracture or dislocation. Mild hypertrophic ar thropathy of the first MTP. Small calcaneal spurs are noted. IMPRESSION: 1. No acute fracture or dislocation. If symptoms persist, follow-up exam in 7 to 10 days could be ob tained.
== END | disposition home or self-care (01) ==
LOC: RADXRMAIN 09:18
PROVIDERS: ATTEND Nurse Practitioner Family
DX: R22.42 Localized swelling, mass and lump, left lower limb (principal); M79.672 Pain in left foot

== ENCOUNTER 2024-04-03 09:04 | Inpatient (IN) | payer MEDICARE ==
--- NOTE | 2024-04-03 09:28 | ED ---
General Adult HPI - General Chief complaint: Neuro Symptoms/Deficit Stated complaint: Right sided deficit Time Seen by Provider: 04/03/24 09:16 Source: patient, family, RN notes reviewed Mode of arrival: wheelchair Limitations: no limitations - History of Present Illness Initial comments: Patient is a 69-year-old male presenting to the emergency department with concern for stroke. Onset of symptoms was approximately 8:20 AM. Symptoms have dramatically improved and near resolved at this point. Patient did have garbled speech. Patient had paresthesias of right arm and right leg which have improved however not completely resolved. Patient did have difficulty with coordination and movement of his right arm and right leg which has resolved. No headache. Patient does not feel confused. Patient question if he had some difficulty word finding however states that has been going on for months. - Related Data Home Medications Medication Instructions Recorded Confirmed Lisinopril-Hctz 20-12.5 mg 1 tab PO DAILY 03/13/19 08/07/20 [Zestoretic 20-12.5] Albuterol Nebulized [Ventolin 2.5 mg INHALATION RT-QID 05/03/19 08/07/20 Nebulized] Multivitamins, Thera [Multivitamin 1 tab PO DAILY 08/07/20 08/07/20 (formulary)] Allergies Allergy/AdvReac Type Severity Reaction Status Date / Time No Known Allergies Allergy Verified 04/03/24 09:11 Review of Systems ROS Statement: Those systems with pertinent positive or pertinent negative responses have been documented in the HPI. ROS Other: All systems not noted in ROS Statement are negative. Constitutional: Denies: fever Eyes: Denies: eye pain ENT: Denies: ear pain Respiratory: Denies: cough Cardiovascular: Denies: chest pain Endocrine: Denies: fatigue Gastrointestinal: Denies: abdominal pain Neurological: Reports: as per HPI, weakness, numbness, paresthesias. Denies: headache Past Medical History Past Medical History: Atrial Fibrillation, COPD, GERD/Reflux, Pneumonia Additional Past Medical History / Comment(s): rt hydrocele History of Any Multi-Drug Resistant Organisms: None Reported Past Surgical History: Appendectomy, Bariatric Surgery, Hernia Repair, Tonsillectomy Additional Past Surgical History / Comment(s): Colonoscopy, Inguinal hernia repair, bariactric sleeve Past Anesthesia/Blood Transfusion Reactions: Motion Sickness Past Psychological History: No Psychological Hx Reported Smoking Status: Never smoker Past Alcohol Use History: Occasional Past Drug Use History: None Reported - Past Family History Mother Family Medical History: Deep Vein Thrombosis (DVT) General Exam Limitations: no limitations General appearance: alert, in no apparent distress Head exam: Present: atraumatic, normocephalic Eye exam: Present: normal appearance, PERRL, EOMI. Absent: nystagmus ENT exam: Present: normal oropharynx Neck exam: Present: normal inspection Respiratory exam: Present: normal lung sounds bilaterally Cardiovascular Exam: Present: normal rhythm, bradycardia GI/Abdominal exam: Present: soft. Absent: tenderness Neurological exam: Present: alert, oriented X3, CN II-XII intact Expanded Neurological exam: Present: protecting the airway Speech: Present: fluid speech Cranial nerves: EOM's Intact: Normal, Facial Sensation: Normal Sensory exam: Upper Extremity Light Touch: Normal, Lower Extremity Light Touch: Normal Motor strength exam: RUE: 5, LUE: 5, RLE: 5, LLE: 5 Eye Response: (4) open spontaneously Motor Response: (6) obeys commands Verbal Response: (5) oriented Psychiatric exam: Present: normal affect, normal mood Skin exam: Present: normal color Course Vital Signs 04/03/24 04/03/24 04/03/24 09:11 09:31 09:45 Temperature 97.4 F L Pulse Rate 52 L 58 L 49 L Respiratory 18 16 16 Rate Blood Pressure 159/88 133/71 142/74 O2 Sat by Pulse 96 98 98 Oximetry 04/03/24 04/03/24 10:00 10:11 Temperature Pulse Rate 47 L 49 L Respiratory 16 16 Rate Blood Pressure 155/88 131/89 O2 Sat by Pulse 98 98 Oximetry EKG Findings - EKG Results: EKG: interpreted by ERMD (Left axis. Right bundle branch block.), normal ST/T EKG shows: bradycardia, atrial fibrillation Medical Decision Making - Medical Decision Making Was pt. sent in by a medical professional or institution (, ANNIE, [employer]ER, urgent care, hospital, or halfway...) When possible be specific @ -No Did you speak to anyone other than the patient for history (EMS, parent, family, police, friend...)? What history was obtained from this source @ - is present and helps provide additional history of patient having garbled speech Did you review nursing and triage notes (agree or disagree)? Why? @ -I reviewed and agree with nursing and triage notes Were old charts reviewed (outside hosp., previous admission, EMS record, old EKG, old radiological studies, urgent care reports/EKG's, halfway records)? Report findings @ -Previous chest x-ray reviewed showing cardiomegaly and increased markings Differential Diagnosis (chest pain, altered mental status, abdominal pain women, abdominal pain men, vaginal bleeding, weakness, fever, dyspnea, syncope, headache, dizziness, GI bleed, back pain, seizure, CVA, palpatations, mental health, musculoskeletal)? @ -Differential Weakness: Hypoglycemia, shock, sepsis, hyponatremia, anemia, infection, [place], ETOH, adverse medicine reaction, overdose, stroke, this is not meant to be an all-inclusive list. EKG interpreted by me (3pts min.). @ -As above X-rays interpreted by me (1pt min.). @ -Chest x-ray does show some cardiomegaly and increased interstitial marking CT interpreted by me (1pt min.). @ -CT scan of the brain does not reveal acute abnormality U/S interpreted by me (1pt. min.). @ -None done What testing was considered but not performed or refused? (CT, X-rays, U/S, labs)? Why? @ -None What meds were considered but not given or refused? Why? @ -Consider thrombolytic however patient has significant improvement of symptoms and no longer considered to be a candidate. Risks are felt to outweigh the benefits. NIH is 0 Did you discuss the management of the patient with other professionals (eladia gomez i.e. , PA, [employer]TER T[employer] TENDER, lab, RT, psych nurse, social work assistant, latin dance instructor, teacher, special service officer, onsite case manager)? Give summary @ -Case was discussed withdr brody who agrees patient is not a candidate for thrombolytics. He does recommend Brilinta and aspirin Case also discussed with Dr. Yoo who will admit covering Dr. Bhakta Was smoking cessation discussed for >3mins.? @ -No Was critical care preformed (if so, how long)? @ -31 minutes critical care time Were there social determinants of health that impacted care today? How? (Homelessness, low income, unemployed, alcoholism, drug addiction, transportation, low edu. Level, literacy, decrease access to med. care, care home, rehab)? @ -No Was there de-escalation of care discussed even if they declined (Discuss DNR or withdrawal of care, Hospice)? DNR status @ -No What co-morbidities impacted this encounter? (DM, HTN, Smoking, COPD, CAD, Ca ncer, CVA, ARF, Chemo, Hep., AIDS, mental health diagnosis, sleep apnea, morbid obesity)? @ -History of A-fib. Patient states he is only on low-dose aspirin for this as that is what he was advised Was patient admitted / discharged? Hospital course, mention meds given and route, prescriptions, significant lab abnormalities, going to OR and other pertinent info. @ -Patient presents with stroke symptoms with significant improvement/near resolution. Patient will be admitted with neuro consult. Cardiology will be also placed on consult to help determine anticoagulant going forward. Admission orders written. Consults placed. Undiagnosed new problem with uncertain prognosis? @ -No Drug Therapy requiring intensive monitoring for toxicity (Heparin, Nitro, Insulin, Cardizem)? @ -No Were any procedures done? @ -No Diagnosis/symptom? @ -CVA Acute, or Chronic, or Acute on Chronic? @ -Acute Uncomplicated (without systemic symptoms) or Complicated (systemic symptoms)? @ -Default Side effects of treatment? @ -No Exacerbation, Progression, or Severe Exacerbation? @ -No Poses a threat to life or bodily function? How? (Chest pain, [place], [place], pneumonia, PE, COPD, DKA, ARF, appy, cholecystitis, CVA, Diverticulitis, Homicidal, Suicidal, threat to staff... and all critical care pts) @ -Threat to cardiac function - Lab Data Result diagrams: 04/03/24 09:04/03/24 09:26 Lab Results 04/03/24 04/03/24 04/03/24 Range/Units 09: 09: 09:26 WBC 9.4 (3.8-10.6) k/uL RBC 5.76 (4.30-5.90) m/uL Hgb 17.3 (13.0-17.5) gm/dL Hct 53.7 H (39.0-53.0) % MCV 93.2 (80.0-100.0) fL MCH 30.0 (25.0-35.0) pg MCHC 32.2 (31.0-37.0) g/dL RDW 13.6 (11.5-15.5) % Plt Count 163 (150-450) k/uL MPV 7.2 Neutrophils % 84 % Lymphocytes % 6 % Monocytes % 6 % Eosinophils % 3 % Basophils % 0 % Neutrophils # 7.9 H (1.3-7.7) k/uL Lymphocytes # 0.6 L (1.0-4.8) k/uL Monocytes # 0.5 (0-1.0) k/uL Eosinophils # 0.3 (0-0.7) k/uL Basophils # 0.0 (0-0.2) k/uL PT 11.7 (10.0-12.5) sec INR 1.1 (<1.2) APTT 28.2 (22.0-30.0) sec Sodium 137 (137-145) mmol/L Potassium 4.4 (3.5-5.1) mmol/L Chloride 106 (98-107) mmol/L Carbon Dioxide 26 (22-30) mmol/L Anion Gap 5 mmol/L BUN 21 H (9-20) mg/dL Creatinine 0.89 (0.66-1.25) mg/dL Est GFR (CKD-EPI)AfAm >90 (>60 ml/min/1.73 sqM) Est GFR (CKD-EPI)NonAf 88 (>60 ml/min/1.73 sqM) Glucose 110 H (74-99) mg/dL Calcium 9.3 (8.4-10.2) mg/dL Total Bilirubin 3.3 H (0.2-1.3) mg/dL AST 30 (17-59) U/L ALT 37 (4-49) U/L Alkaline Phosphatase 68 (38-126) U/L Creatine Kinase 72 (55-170) U/L Total Protein 6.2 L (6.3-8.2) g/dL Albumin 3.8 (3.5-5.0) g/dL Critical Care Time Critical Care Time: Yes Disposition Clinical Impression: Cerebrovascular accident (CVA) Disposition: ADMITTED IP TO THIS HOSP Is patient prescribed a controlled substance at d/c from ED?: No Referrals: Cristo Bhakta DO [Primary Care Provider] - 1-2 days Time of Disposition: 10:38
[2024-04-03 09:45] LABS: Basophils % (A) 0 %; Eosinophils # (A) 0.3 k/uL (0-0.7); Eosinophils % (A) 3 %; HCT 53.7 % (39.0-53.0); HGB 17.3 gm/dL (13.0-17.5); Lymphocytes # (A) 0.6 k/uL (1.0-4.8); Lymphocytes % (A) 6 %; MCHC 32.2 g/dL (31.0-37.0); MCV 93.2 fL (80.0-100.0); Mean Platelet Volume 7.2; Monocytes # (A) 0.5 k/uL (0-1.0); Monocytes % (A) 6 %; Neutrophils # (A) 7.9 k/uL (1.3-7.7); Neutrophils % (A) 84 %; Platelet Count 163 k/uL (150-450); RBC 5.76 m/uL (4.30-5.90); RDW 13.6 % (11.5-15.5); WBC 9.4 k/uL (3.8-10.6)
--- NOTE | 2024-04-03 09:48 | CT ---
Head CT without contrast HISTORY: Code stroke. COMPARISON: None. TECHNIQUE: Multiple axial images are obtained from the skull base to vertex without use of IV contras t material. FINDINGS: The ventricles, basal cisterns and sulci over the convexities are within normal limits and there is n o mass effect or shift of midline structures. No abnormal density is seen throughout the brain parenchyma and there is no acute intra or extra-axia l hemorrhage. The posterior fossa including the brainstem, fourth ventricle and cerebellar pontine angles appear no rmal. Intraorbital contents appear normal and symmetric. There is mild mucosal thickening in the right maxillary sinus. The mastoid air cells are well aerated . There are no air-fluid levels within the paranasal sinuses. The calvarium is intact. IMPRESSION: No acute bleed or mass effect. [facility], , 04/03/2024 9:46 AM
[2024-04-03] MEDS: diphenhydrAMINE 50 MG/ML 1 ML VIAL IVP STA (09:50)
[2024-04-03 09:54] LABS: INR 1.1 (<1.2); Partial Thromboplastin Time 28.2 sec (22.0-30.0); Prothrombin Time 11.7 sec (10.0-12.5)
[2024-04-03 10:14] LABS: ALT 37 U/L (4-49); AST 30 U/L (17-59); African American GFR (CKD) >90 (>60 ml/min/1.73 sqM); Albumin 3.8 g/dL (3.5-5.0); Alkaline Phosphatase 68 U/L (38-126); Anion Gap 5 mmol/L; Blood Urea Nitrogen 21 mg/dL (9-20); Calcium 9.3 mg/dL (8.4-10.2); Carbon Dioxide 26 mmol/L (22-30); Chloride 106 mmol/L (98-107); Creatine Kinase 72 U/L (55-170); Glucose 110 mg/dL (74-99); Non-African American GFR(CKD) 88 (>60 ml/min/1.73 sqM); Potassium 4.4 mmol/L (3.5-5.1); Sodium 137 mmol/L (137-145); Total Bilirubin 3.3 mg/dL (0.2-1.3); Total Protein 6.2 g/dL (6.3-8.2)
--- NOTE | 2024-04-03 10:16 | CT ---
EXAMINATION TYPE: CT angio head neck DATE OF EXAM: 04/03/2024 COMPARISON: None CLINICAL INDICATION: Male, 69 years old with history of Neuro deficit, acute, stroke suspected; PHH, Code stroke TECHNIQUE: CTA scan of the head and neck is performed with IV Contrast, patient injected with 65 mL of Isovue 300, axial images are obtained, coronal and sagittal reformatted images are reviewed. 3D re constructed images are created on an independent workstation and reviewed. CT DLP: 860.[address] CTDI: mGy Automated exposure control for dose reduction was used. NASCET criteria was used in interpretation of this exam? FINDINGS: The brachiocephalic origins are widely patent and no significant stenosis. There is no significant stenosis of the common or internal carotid arteries within the neck. There is mild calcified plaque in the carotid bifurcations, right greater than left. The left vertebral arter y is markedly diminutive. The right vertebral artery is dominant and widely patent.. Intracranially, there is no stenosis, segmental occlusion, sizable aneurysm sac or vascular malformat ion. IMPRESSION: 1. Markedly diminutive left vertebral artery with the dominant right vertebral artery which is widely patent. 2. No significant occlusive disease involving the brachiocephalic origins, carotid arteries within th e neck or intracranially. NASCET criteria was used in interpretation of this exam? [facility], Workstation: [place] 04/03/2024 10:13 AM
--- NOTE | 2024-04-03 10:32 | XR ---
2 view chest HISTORY: Altered mental status. COMPARISON: 02/26/2021 TECHNIQUE: PA and lateral views chest obtained. FINDINGS: There is marked cardiomegaly and mild diffuse interstitial density raising the question of interstiti al edema and pulmonary vascular congestion. There is a right pleural effusion. There is no pneumothorax. The osseous structures are intact. IMPRESSION: Acute cardiopulmonary disease, possibly CHF. Clinical correlation recommended. [facility] Workstation: [place] 04/03/2024 10:30 AM
--- NOTE | 2024-04-03 10:50 | P.HPIM ---
History of Present Illness This is a pleasant 69 years old male with past medical history of multiple medical problems as below Presents because of right side numbness and tingling of the face leg and arm started this morning Patient currently reports numbness on and off but he denies weakness. No headache dizziness. No blurred vision or slurred speech Patient denies GI/ symptoms. No chest pain dyspnea or coughing. He denies smoking or illicit drugs. He drinks alcohol occasionally. Hemodynamically stable and afebrile He has unremarkable CBC, BMP, liver enzymes, INR, troponin She is little bit bradycardic with heart rate 47-52 CT of the brain is negative for acute process CTA of the head and neck showing no significant stenosis or aneurysm but there is blockage of the left vertebral artery Review of Systems Review of systems CONSTITUTIONAL: No fever, no malaise, no fatigue. HEENT: No recent visual problems or hearing problems. Denied any sore throat. CARDIOVASCULAR: No orthopnea, PND, no palpitations, no syncope. PULMONARY: No shortness of breath, no cough, no hemoptysis. GASTROINTESTINAL: No diarrhea, no nausea, no vomiting, no abdominal pain. Normoactive bowel sounds. NEUROLOGICAL: No headaches, no weakness, no numbness. HEMATOLOGICAL: Denies any bleeding or petechiae. GENITOURINARY: Denies any burning micturition, frequency, or urgency. MUSCULOSKELETAL/RHEUMATOLOGICAL: Denies any joint pain, swelling, or any muscle pain. ENDOCRINE: Denies any polyuria or polydipsia. Past Medical History Past Medical History: Atrial Fibrillation, COPD, GERD/Reflux, Pneumonia Additional Past Medical History / Comment(s): rt hydrocele History of Any Multi-Drug Resistant Organisms: None Reported Past Surgical History: Appendectomy, Bariatric Surgery, Hernia Repair, Tonsillectomy Additional Past Surgical History / Comment(s): Colonoscopy, Inguinal hernia r epair, bariactric sleeve Past Anesthesia/Blood Transfusion Reactions: Motion Sickness Past Psychological History: No Psychological Hx Reported Smoking Status: Never smoker Past Alcohol Use History: Occasional Past Drug Use History: None Reported - Past Family History Mother Family Medical History: Deep Vein Thrombosis (DVT) Medications and Allergies Home Medications Medication Instructions Recorded Confirmed Type Lisinopril-Hctz 20-12.5 mg 1 tab PO DAILY 03/13/19 08/07/20 History [Zestoretic 20-12.5] Albuterol Nebulized [Ventolin 2.5 mg INHALATION RT-QID 05/03/19 08/07/20 History Nebulized] Multivitamins, Thera [Multivitamin 1 tab PO DAILY 08/07/20 08/07/20 History (formulary)] Allergies Allergy/AdvReac Type Severity Reaction Status Date / Time No Known Allergies Allergy Verified 04/03/24 09:11 Physical Exam Vitals: Vital Signs Temp Pulse Resp BP Pulse Ox 04/03/24 10:11 49 L 16 131/89 98 04/03/24 10:00 47 L 16 155/88 98 04/03/24 09:45 49 L 16 142/74 98 04/03/24 09:31 58 L 16 133/71 98 04/03/24 09:11 97.4 F L 52 L 18 159/88 96 Intake and Output 04/02/24 04/03/24 04/03/24 22:59 06:59 14:59 Other: Weight 131.542 kg GENERAL: The patient is alert and oriented x3, not in any acute distress. Well developed, well nourished. HEENT: Pupils are round and equally reacting to light. EOMI. No scleral icterus. No conjunctival pallor. Normocephalic, atraumatic. No pharyngeal erythema. No thyromegaly. CARDIOVASCULAR: S1 and S2 present. No murmurs, rubs, or gallops. PULMONARY: Chest is clear to auscultation, no wheezing , no crackles. ABDOMEN: Soft, nontender, nondistended, normoactive bowel sounds. No palpable organomegaly. MUSCULOSKELETAL: No joint swelling or deformity. EXTREMITIES: No cyanosis, clubbing, or pedal edema. NEUROLOGICAL: Gross neurological examination did not reveal any focal deficits. SKIN: No rashes. no petechiae. Results CBC & Chem 7: 04/03/24 09:26 04/03/24 09:26 Labs: Abnormal Lab Results - Last 24 Hours (Table) 04/03/24 04/03/24 Range/Units : 09: Hct 53.7 H (39.0-53.0) % Neutrophils # 7.9 H (1.3-7.7) k/uL Lymphocytes # 0.6 L (1.0-4.8) k/uL BUN 21 H (9-20) mg/dL Glucose 110 H (74-99) mg/dL Total Bilirubin 3.3 H (0.2-1.3) mg/dL Total Protein 6.2 L (6.3-8.2) g/dL Assessment and Plan Assessment: Right side numbness suspicious for acute stroke Mild bradycardia Hypertension Obesity with BMI of 39.3 History of GERD Plan: Continue with aspirin 81 mg Patient also started on Brilinta Continue with gentle hydration Neurology consult Labs and medication were reviewed.. Continue same treatment. Continue with symptomatic treatment. Resume home medication. Monitor labs and vitals. DVT and GI prophylaxis. Further recommendations as per clinical course of the patient DVT prophylaxis: Dual antiplatelet therapy GI Prophylaxis: Pepcid PT/OT: Pending Prognosis is guarded
[2024-04-03] MEDS: SODIUM CHLORIDE 0.9% 1,000 ML IV SCH (10:58)
[2024-04-03] MEDS: TICAGRELOR 90 MG TAB PO STA (10:58)
[2024-04-03] MEDS: ASPIRIN 325 MG TAB PO STA (10:58)
--- NOTE | 2024-04-03 14:53 | MR ---
EXAMINATION TYPE: MR brain wo con DATE OF EXAM: 04/03/2024 2:04 PM COMPARISON: Previous CT angiogram head/neck study dated 04/03/2024.. CLINICAL INDICATION: Male, 69 years old with history of right numbness, hemiparesis. cva; PHH, Right sided numbness, hemiparesis, CVA. TECHNIQUE: Multi planar, multi sequence imaging was performed through the brain including: T1, T2, In version recovery, Diffusion weighted imaging, and gradient echo imaging. No gadolinium was given. FINDINGS: The shaw-white junctions, ventricular system, basal cisterns appear unremarkable. Scattered foci of high T2 signal intensity are seen within the periventricular and subcortical white matter compatible with at least moderate chronic microvascular ischemic disease. Midline structures show no abnormalit y. Abnormal restricted diffusion in the left thalamus (image 18 on DWI sequence) with corresponding T 2 FLAIR signal compatible with acute infarction. The susceptibility weighted images do not reveal any evidence for micro-hemorrhage. The bone marrow signal is within normal limits. Paranasal sinuses and mastoid air cells: No significant paranasal sinus disease. Visualized orbits: Orbital contents are intact. IMPRESSION: 1. Small abnormal region of restricted diffusion in the left thalamus compatible with acute infarcti on. 2. Patchy periventricular and subcortical white matter FLAIR signal compatible with moderate chronic microvascular ischemia. *Critical results were discussed with Dr. Truong at 2:20 pm on 04/03/2024. [facility], , 04/03/2024 2:50 PM
[2024-04-03] MEDS: HEPARIN SODIUM,PORCINE 5,000 UNIT/ML 1 ML VIAL SQ SCH (15:22)
[2024-04-03] MEDS: IPRATROPIUM-ALBUTEROL 3 ML NEB INHALATION PRN (15:37)
--- NOTE | 2024-04-03 15:52 | P.CNNES ---
History of Present Illness Consult date: 04/03/24 Requesting physician: Artie Truong Reason for Consult: cva History of Present Illness: The 69-year-old gentleman who present emergency department because of right sided numbness with weakness including the face. Patient is accompanied with his was at bedside. It seems that he woke up at 6 AM he was doing well by 8:20 AM today he noticed that he is having right sided numbness including weakness including the face. Patient feels there is improvement in symptoms but not completely resolved. Denies any history of stroke. 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 He does have underlying history of borderline hypertension. He denies tobacco use or illicit drug use. Some of the workup during this hospital visit consisted of: I reviewed the labs. CT of the head is reported as no acute bleed or mass effect. I personally reviewed the CT and agree with the report. Seems the patient has old lacunar strokes. CT angiography of the head and neck is reported as markedly diminutive left vertebral artery with a dominant right vertebral artery which is widely patent. No significant occlusive disease involving the brachiocephalic origin, carotid arteries with the neck or intracranially. NIH per ED was 0. Stroke was activated the ED team and they spoke with Dr. Moss and no IV thrombolytic since symptoms improving I assume and risk outweigh benefit. Review of Systems As per HPI. Past Medical History Past Medical History: Atrial Fibrillation, COPD, GERD/Reflux, Pneumonia Additional Past Medical History / Comment(s): rt hydrocele History of Any Multi-Drug Resistant Organisms: None Reported Past Surgical History: Appendectomy, Bariatric Surgery, Hernia Repair, Tonsillectomy Additional Past Surgical History / Comment(s): Colonoscopy, Inguinal hernia repair, bariactric sleeve Past Anesthesia/Blood Transfusion Reactions: Motion Sickness Past Psychological History: No Psychological Hx Reported Smoking Status: Never smoker Past Alcohol Use History: Occasional Past Drug Use History: None Reported - Past Family History Mother Family Medical History: Deep Vein Thrombosis (DVT) Medications and Allergies Home Medications Medication Instructions Recorded Confirmed Type Lisinopril-Hctz 20-12.5 mg 1 tab PO DAILY 03/13/19 04/03/24 History [Zestoretic 20-12.5] Multivitamins, Thera [Multivitamin 1 tab PO DAILY 08/07/20 04/03/24 History (formulary)] Acetaminophen Tab [Tylenol Tab] 500 mg PO HS 04/03/24 04/03/24 History Aspirin EC [Ecotrin Low Dose] 81 mg PO DAILY 04/03/24 04/03/24 History Ipratropium-Albuterol Nebulize 3 ml INHALATION DIRECTED 04/03/24 04/03/24 History [Duoneb 0.5 mg-3 mg/3 ml Soln] Montelukast [Singulair] 10 mg PO HS 04/03/24 04/03/24 History Pantoprazole Sodium [Protonix] 40 mg PO DAILY 04/03/24 04/03/24 History Power C 1 tab PO HS 04/03/24 04/03/24 History predniSONE See Taper PO DAILY 04/03/24 04/03/24 History Allergies Allergy/AdvReac Type Severity Reaction Status Date / Time No Known Allergies Allergy Verified 04/03/24 11:54 Physical Examination - Vital Signs Vital Signs: Vital Signs Temp Pulse Resp BP Pulse Ox 04/03/24 12:41 51 L 20 140/79 98 04/03/24 12:11 49 L 20 145/79 99 04/03/24 11:39 56 L 20 136/78 99 04/03/24 11:11 54 L 20 125/77 98 04/03/24 10:39 48 L 18 130/82 98 04/03/24 10:11 49 L 16 131/89 98 04/03/24 10:00 47 L 16 155/88 98 04/03/24 09:45 49 L 16 142/74 98 04/03/24 09:31 58 L 16 133/71 98 04/03/24 09:11 97.4 F L 52 L 18 159/88 96 Intake and Output 04/03/24 04/03/24 04/03/24 06:59 14:59 22:59 Other: Weight 131.542 kg GENERAL: The patient is lying in bed and is not in acute distress. NEUROLOGICAL: Higher mental function: The patient is awake, alert, oriented to self, place and time. Patient is following commands. No aphasia and no neglect. Cranial nerves: The pupils are round, equal and reactive to light and accommodation. Visual grajeda are full to confrontation throughout. Extraocular movement is intact no nystagmus is noted. Facial sensation is normal to touch throughout. The facial strength is normal throughout. Hearing is normal bilaterally to hand rub. Tongue is midline and moved [id number] without any difficulty. No dysarthria is noted. Shoulder shrug is normal bilaterally. Motor: The strength is some abnormal dexerity of the right hand. Right upper extremity was 4+ to 5- but no drift. Otherwise strength is 5/5. Normal tone and bulk. Cerebellum: Had difficulty with finger to nose of the right but that was because of weakness but no dysmetria or ataxia bilaterally. Sensation: Sensation is normal to touch throughout. Reflexes (right/left): 2+ Plantars are downgoing bilaterally. Results - Laboratory Findings CBC and BMP: 04/03/24 09:26 04/03/24 09:26 Abnormal Lab Findings: Abnormal Labs 04/03/24 04/03/24 09:26 09:26 Hct 53.7 H Neutrophils # 7.9 H Lymphocytes # 0.6 L BUN 21 H Glucose 110 H Total Bilirubin 3.3 H Total Protein 6.2 L Assessment and Plan Assessment: This is a 69-year-old gentleman who present emergency department because of right sided numbness including the face with weakness. Symptoms began today around 8:20 am and feels somewhat better but not completely back to baseline. Likely acute ischemic stroke. On examination I felt patient had impaired dexerity of the right hand with mild weakness of the right upper extremity. No IV thrombolytic since symptoms improving. We have atrial fibrillation on aspirin Underlying history of hypertension that is borderline COPD Plan: I ordered MRI of the brain urgently 2D echo, lipid panel is ordered and is pending Ordered hemoglobin A1c, TSH Patient is on aspirin 81 mg and stroke then recommended to start him on Brilinta 90 mg twice daily with 180 mg once. Cardiology is consulted for the A-fib. Continue neurochecks Cardiac monitoring PT OT and P[facility]ANGER are consulted Recommend permissive hypertension for the next 24 to 40 hours and control the systolic blood pressure more than 220 or diastolic more than 110. Will defer the rest of the medical management to primary and other specialist DVT prophylaxis the patient is on subcu heparin The plan discussed with the patient, his was at bedside and his nurse Thank you for the consultation Time with Patient: Greater than 30
[2024-04-03] MEDS: TICAGRELOR 90 MG TAB PO SCH (20:33)
[2024-04-03] MEDS: FAMOTIDINE 20 MG/2 ML VIAL IV SCH (20:33)
[2024-04-03] MEDS: ATORVASTATIN 40 MG TAB PO SCH (20:33)
[2024-04-04 00:20] LABS: Glucose,Whole Blood 133 mg/dL (70-110)
[2024-04-04] MEDS: MELATONIN 3 MG TABLET PO PRN (00:29)
[2024-04-04] MEDS: ACETAMINOPHEN TAB 325 MG TAB PO PRN (05:56)
[2024-04-04] MEDS: ASPIRIN 81 MG PO SCH (08:22)
[2024-04-04 11:13] LABS: African American GFR (CKD) >90 (>60 ml/min/1.73 sqM); Anion Gap 9 mmol/L; Blood Urea Nitrogen 19 mg/dL (9-20); Calcium 8.8 mg/dL (8.4-10.2); Carbon Dioxide 19 mmol/L (22-30); Chloride 109 mmol/L (98-107); Glucose 115 mg/dL (74-99); Non-African American GFR(CKD) 87 (>60 ml/min/1.73 sqM); Potassium 4.4 mmol/L (3.5-5.1); Sodium 137 mmol/L (137-145)
--- NOTE | 2024-04-04 11:28 | P.PN ---
Subjective Progress Note Date: 04/04/24 Following up with the patient and he stated that his right sided weakness was worse yesterday and he had 2 falls once he was unsteady with his walk. Denies any loss of consciousness. Continues to have numbness over the right side. Objective - Vital Signs Vital signs: Vital Signs Temp 98.2 F 04/04/24 08:17 Pulse 61 04/04/24 08:18 Resp 16 04/04/24 08:18 BP 151/79 04/04/24 08:17 Pulse Ox 98 04/04/24 08:43 FiO2 Intake & Output 04/03/24 04/04/24 04/04/24 18:59 06:59 18:59 Intake Total 540 762 180 Output Total 800 150 Balance 540 -38 30 Weight 131.542 kg Intake: Oral 540 762 180 Output: Urine 800 150 Other: Voiding Method Urinal Urinal # Voids 2 1 - Exam General: Sitting on recliner chair and is not in acute distress. Neuro: Patient is awake alert oriented to self place and time. Is following simple commands. No aphasia no neglect Pupils are round, about 4 mm, equal reactive to light. No grajeda are full to co nfrontation. Decreased facial sensation to touch over the right side. No facial weakness. No dysarthria The motor strength in the right upper extremity is about 3 to 4-to while in the right lower extremity is about 4+ to 5 -. Strength over the left side is 5 out of 5. Sensation: Decrease to touch over the right side. Cerebellar: Hard to assess right upper because of weakness but normal finger to nose on the left. Some of the workup during this hospital visit consisted of: I reviewed the labs. TSH: 1.070 CT of the head is reported as no acute bleed or mass effect. I personally reviewed the CT and agree with the report. Seems the patient has old lacunar strokes. CT angiography of the head and neck is reported as markedly diminutive left vertebral artery with a dominant right vertebral artery which is widely patent. No significant occlusive disease involving the brachiocephalic origin, carotid arteries with the neck or intracranially. MRI Brain: Revealed small abnormal region restriction diffusion in the left thalamus compatible with acute infarction. - Labs CBC & Chem 7: 04/03/24 09:26 04/04/24 10:09 Labs: Abnormal Lab Results - Last 24 Hours (Table) 11/24/24 11/24/24 Range/Units 00:18 10:09 Chloride 109 H (98-107) mmol/L Carbon Dioxide 19 L (22-30) mmol/L Glucose 115 H (74-99) mg/dL POC Glucose (mg/dL) 133 H (70-110) mg/dL Assessment and Plan Assessment: This is a 69-year-old gentleman who present emergency department because of right sided numbness including the face with weakness. Acute ischemic stroke over the left thalamus. Symptoms is right sided numbness with weakness over the right side. Etiology of stroke seems his risk factor of HTN causing lacunar stroke/chronic small vessel disease. This seems atypical for afib but cannot rule out. Symptoms got worse yesterday and likely he had evolution of stroke. We have atrial fibrillation on aspirin Underlying history of hypertension that is borderline COPD Plan: 2D echo, lipid panel are pending. is ordered and is pending I will get repeat CT head since had worsening of symptoms. Patient is resume on aspirin 81 mg home dose. The stroke team started recommended Brilinta 90 mg twice daily and was given a loading dose 180 mg once. Cardiology is consulted for the A-fib. Continue neurochecks Cardiac monitoring PT OT and CUSHION FILLER are consulted. Patient will benefit from inpatient rehab. Placed on fall precaution. Recommend permissive hypertension for the next 24 hours and control the systolic blood pressure more than 220 or diastolic more than 110. Will defer the rest of the medical management to primary and other specialist DVT prophylaxis the patient is on subcu heparin The plan discussed with the patient. Dr. Low will resume neurology service tomorrow A.M. Time with Patient: Less than 30
[2024-04-04 11:47] LABS: Basophils # (A) 0.1 k/uL (0-0.2); Basophils % (A) 1 %; Eosinophils # (A) 0.1 k/uL (0-0.7); Eosinophils % (A) 1 %; HCT 53.9 % (39.0-53.0); HGB 17.1 gm/dL (13.0-17.5); Hypochromasia Slight; Lymphocytes # (A) 0.5 k/uL (1.0-4.8); Lymphocytes % (A) 4 %; MCH 30.7 pg (25.0-35.0); MCHC 31.7 g/dL (31.0-37.0); MCV 96.7 fL (80.0-100.0); Mean Platelet Volume 7.5; Monocytes # (A) 0.7 k/uL (0-1.0); Monocytes % (A) 6 %; Neutrophils # (A) 9.7 k/uL (1.3-7.7); Neutrophils % (A) 87 %; Platelet Count 151 k/uL (150-450); RBC 5.57 m/uL (4.30-5.90); RDW 13.6 % (11.5-15.5); WBC 11.1 k/uL (3.8-10.6)
--- NOTE | 2024-04-04 12:00 | CT ---
EXAMINATION TYPE: CT brain wo con DATE OF EXAM: 04/04/2024 COMPARISON: 04/03/2024 CLINICAL INDICATION: Male, 69 years old with history of right sided weakness, numbness; PHH, RT side weakness, numbness TECHNIQUE: CT scan of the head is performed without contrast. CT DLP: 1315.[address] CTDI: mGy Automated exposure control for dose reduction was used. FINDINGS: There is no acute intracranial hemorrhage or midline shift identified. There is diffuse v entricular and sulcal prominence consistent with diffuse age-related cerebral atrophy. There is low- attenuation in the periventricular white matter consistent with chronic small vessel ischemic change. The globes are intact and the visualized sinuses are clear. IMPRESSION: No acute intracranial hemorrhage or midline shift. There is diffuse age-related cerebra l atrophy and chronic small vessel ischemic change noted. [facility], , 04/04/2024 11:58 AM
--- NOTE | 2024-04-04 14:04 | P.PN ---
Subjective This is a pleasant 69 years old male with past medical history of multiple medical problems as below Presents because of right side numbness and tingling of the face leg and arm started this morning Patient currently reports numbness on and off but he denies weakness. No headache dizziness. No blurred vision or slurred speech Patient denies GI/ symptoms. No chest pain dyspnea or coughing. He denies smoking or illicit drugs. He drinks alcohol occasionally. Hemodynamically stable and afebrile He has unremarkable CBC, BMP, liver enzymes, INR, troponin She is little bit bradycardic with heart rate 47-52 CT of the brain is negative for acute process CTA of the head and neck showing no significant stenosis or aneurysm but there is blockage of the left vertebral artery 04/04 Objective - Vital Signs Vital signs: Vital Signs Temp 97.8 F 04/04/24 11:31 Pulse 65 04/04/24 13:38 Resp 16 04/04/24 13:38 BP 150/89 04/04/24 11:31 Pulse Ox 98 04/04/24 11:31 FiO2 Intake & Output 04/03/24 04/04/24 04/04/24 18:59 06:59 18:59 Intake Total 540 762 360 Output Total 800 750 Balance 540 -38 -390 Weight 131.542 kg Intake: Oral 540 762 360 Output: Urine 800 750 Other: Voiding Method Urinal Urinal # Voids 2 1 - Exam -GENERAL: The patient is alert and oriented x3, not in any acute distress. Well developed, well nourished. Obese HEENT: Pupils are round and equally reacting to light. EOMI. No scleral icterus. No conjunctival pallor. Normocephalic, atraumatic. No pharyngeal erythema. No thyromegaly. CARDIOVASCULAR: S1 and S2 present. No murmurs, rubs, or gallops. PULMONARY: Chest is clear to auscultation, no wheezing , no crackles. ABDOMEN: Soft, nontender, nondistended, normoactive bowel sounds. No palpable organomegaly. MUSCULOSKELETAL: No joint swelling or deformity. EXTREMITIES: No cyanosis, clubbing, or pedal edema. -NEUROLOGICAL: Gross neurological examination did not reveal any focal deficits. Right side numbness both upper and lower extremities SKIN: No rashes. no petechiae. - Labs CBC & Chem 7: 04/04/24 10:09 04/04/24 10:09 Labs: Abnormal Lab Results - Last 24 Hours (Table) 04/04/24 04/04/24 04/04/24 Range/Units 00:18 10:09 10:09 WBC 11.1 H (3.8-10.6) k/uL Hct 53.9 H (39.0-53.0) % Neutrophils # 9.7 H (1.3-7.7) k/uL Lymphocytes # 0.5 L (1.0-4.8) k/uL Chloride 109 H (98-107) mmol/L Carbon Dioxide 19 L (22-30) mmol/L Glucose 115 H (74-99) mg/dL POC Glucose (mg/dL) 133 H (70-110) mg/dL Assessment and Plan Assessment: Right side numbness with MRI of the brain showing acute stroke of the left thalamus A-fib with rate control Hypertension Obesity with BMI of 39.3 History of GERD Plan: Continue with aspirin 81 mg Patient also started on Brilinta Continue with gentle hydration Neurology consult Cardiology team also was consulted Labs and medication were reviewed.. Continue same treatment. Continue with symptomatic treatment. Resume home medication. Monitor labs and vitals. DVT and GI prophylaxis. Further recommendations as per clinical course of the patient DVT prophylaxis: Dual antiplatelet therapy GI Prophylaxis: Pepcid PT/OT: Pending Prognosis is guarded
--- NOTE | 2024-04-04 15:51 | XR ---
EXAMINATION TYPE: XR shoulder complete RT DATE OF EXAM: 04/04/2024 CLINICAL HISTORY: Pain with recent fall TECHNIQUE: Three views of the right shoulder are obtained. COMPARISON: None. FINDINGS: There is no acute fracture/dislocation evident in the right shoulder. [id number] dixie rowing and spurring at the acromioclavicular joint. Glenohumeral joint is maintained. Overlying soft tissue is unremarkable. IMPRESSION: There is no acute fracture or dislocation in the right shoulder. [facility], , 04/04/2024 3:49 PM
--- NOTE | 2024-04-04 15:54 | P.CRDCN ---
History of Present Illness Consult date: 04/03/24 History of present illness: HISTORY OF PRESENTING ILLNESS 69-year-old male presented to the hospital with right-sided numbness and tingling in the face that started in the morning. He denied any symptoms of chest pain chest pressure. He was admitted with a working diagnosis of possible CVA/TIA. CT of the brain did not show any acute process. CT head and neck did not show any significant stenosis in carotids but did report a blockage of left vertebral artery. EKG showed atrial fibrillation, slow ventricular response, right bundle branch block, left axis deviation. His ECG reviewed from 2018 also showed A-fib however right bundle appears new. Labs showed hemoglobin 17, creatinine 0.8, TSH 1.0, HbA1c 5.6 REVIEW OF SYSTEMS 14 point review of system is negative except what is mentioned above in HPI. PHYSICAL EXAMINATION Vital signs reviewed. Head: Normocephalic. Eyes: Sclerae nonicteric. Neck: Brisk carotid upstroke, no jugular venous distention. Lungs: Clear to auscultation. Heart: Irregularly irregular pulse, mild systolic murmur audible Abdomen: Soft nontender, positive bowel sounds. Extremities: No edema, intact distal pulses. Neuro: Alert, Detailed neuro exam was not performed. ASSESSMENT Right-sided numbness, concern of CVA/TIA Chronic atrial fibrillation, slow ventricular response Right bundle branch block Obesity GERD PLAN Continue to monitor telemetry for any pauses or significant bradycardia Obtain echocardiogram He is on DAPT with aspirin and Brilinta. Continue Lipitor. Further recommendations to follow Dani Cleaning MD, FACC, RPVI Thank you for allowing [facility] to participate in this patient's care. Feel free to reach out in case of any followup questions. Past Medical History Past Medical History: Atrial Fibrillation, COPD, GERD/Reflux, Pneumonia Additional Past Medical History / Comment(s): rt hydrocele History of Any Multi-Drug Resistant Organisms: None Reported Past Surgical History: Appendectomy, Bariatric Surgery, Hernia Repair, Tonsillectomy Additional Past Surgical History / Comment(s): Colonoscopy, Inguinal hernia repair, bariactric sleeve Past Anesthesia/Blood Transfusion Reactions: Motion Sickness Past Psychological History: No Psychological Hx Reported Smoking Status: Never smoker Past Alcohol Use History: Occasional Past Drug Use History: None Reported - Past Family History Mother Family Medical History: Deep Vein Thrombosis (DVT) Medications and Allergies Home Medications Medication Instructions Recorded Confirmed Type Lisinopril-Hctz 20-12.5 mg 1 tab PO DAILY 03/13/19 04/03/24 History [Zestoretic 20-12.5] Multivitamins, Thera [Multivitamin 1 tab PO DAILY 08/07/20 04/03/24 History (formulary)] Acetaminophen Tab [Tylenol Tab] 500 mg PO HS 04/03/24 04/03/24 History Aspirin EC [Ecotrin Low Dose] 81 mg PO DAILY 04/03/24 04/03/24 History Ipratropium-Albuterol Nebulize 3 ml INHALATION DIRECTED 04/03/24 04/03/24 History [Duoneb 0.5 mg-3 mg/3 ml Soln] Montelukast [Singulair] 10 mg PO HS 04/03/24 04/03/24 History Pantoprazole Sodium [Protonix] 40 mg PO DAILY 04/03/24 04/03/24 History Power C 1 tab PO HS 04/03/24 04/03/24 History predniSONE See Taper PO DAILY 04/03/24 04/03/24 History Allergies Allergy/AdvReac Type Severity Reaction Status Date / Time No Known Allergies Allergy Verified 04/03/24 11:54 Physical Exam Vitals: Vital Signs Temp Pulse Pulse Resp BP BP Pulse Ox 04/04/24 15:05 97.9 F 63 16 156/84 97 04/04/24 13:38 65 16 04/04/24 11:31 97.8 F 65 65 16 150/89 150/89 98 04/04/24 08:43 98 04/04/24 08:18 61 16 04/04/24 08:17 98.2 F 61 16 151/79 98 04/04/24 04:00 69 16 134/75 98 04/04/24 00:25 72 16 139/62 94 L 04/04/24 00:02 82 20 04/04/24 00:00 55 L 16 135/57 97 04/03/24 23:53 83 20 04/03/24 21:16 98.2 F 56 L 16 139/80 96 04/03/24 20:13 66 20 149/86 98 04/03/24 19:30 63 18 132/72 98 04/03/24 19:00 65 20 131/69 96 04/03/24 18:30 58 L 18 114/72 97 04/03/24 18:00 61 18 142/78 99 04/03/24 17:30 60 20 142/83 98 04/03/24 17:00 53 L 20 136/74 96 Intake and Output 04/04/24 04/04/24 04/04/24 06:59 14:59 22:59 Intake Total 540 360 Output Total 300 750 Balance 240 -390 Intake: Oral 540 360 Output: Urine 300 750 Other: Voiding Method Urinal Urinal # Voids 2 1 Results 04/04/24 10:09 04/04/24 10:09 CBC 04/04/24 Range/Units 10:09 WBC 11.1 H (3.8-10.6) k/uL RBC 5.57 (4.30-5.90) m/uL Hgb 17.1 (13.0-17.5) gm/dL Hct 53.9 H (39.0-53.0) % Plt Count 151 (150-450) k/uL Comprehensive Metabolic Panel 04/04/24 Range/Units 10:09 Sodium 137 (137-145) mmol/L Potassium 4.4 (3.5-5.1) mmol/L Chloride 109 H (98-107) mmol/L Carbon Dioxide 19 L (22-30) mmol/L BUN 19 (9-20) mg/dL Creatinine 0.90 (0.66-1.25) mg/dL Glucose 115 H (74-99) mg/dL Calcium 8.8 (8.4-10.2) mg/dL Current Medications Generic Name Dose Route Start Last Admin Trade Name Chrisq PRN Reason Stop Dose Admin Acetaminophen 650 mg 04/04/24 05:51 04/04/24 15:09 Acetaminophen Tab 325 Mg Tab PO 650 mg Q6HR PRN Administration Fever and/ or Pain Albuterol/Ipratropium 3 ml 04/03/24 15:27 04/03/24 23:53 Ipratropium-Albuterol 3 Ml Neb INHALATION 3 ml RT-TID PRN Administration Shortness Of Breath Or Wheezing Aspirin 81 mg 04/04/24 09:00 04/04/24 08:22 Aspirin 81 Mg PO 81 mg DAILY BERENICE Administration Atorvastatin Calcium 40 mg 04/03/24 21:00 04/03/24 20:33 Atorvastatin 40 Mg Tab PO 40 mg HS BERENICE Administration Famotidine 20 mg 04/03/24 21:00 04/04/24 08:23 Famotidine 20 Mg/2 Ml Vial IV 20 mg Q12HR BERENICE Administration Heparin Sodium (Porcine) 5,000 unit 04/03/24 16:00 04/04/24 15:06 Heparin Sodium,Porcine 5,000 Unit/Ml 1 Ml Vial SQ 5,000 unit Q8HR BERENICE Administration Sodium Chloride 1,000 mls @ 100 mls/hr 04/03/24 10:45 04/04/24 15:06 Saline 0.9% IV 100 mls/hr .Q10H BERENICE Administration Melatonin 6 mg 04/04/24 00:06 04/04/24 00:29 Melatonin 3 Mg Tablet PO 6 mg HS PRN Administration Insomnia Ticagrelor 90 mg 04/03/24 21:00 04/04/24 08:22 Ticagrelor 90 Mg Tab PO 90 mg BID BERENICE Administration Intake and Output 04/04/24 04/04/24 04/04/24 06:59 14:59 22:59 Intake Total 540 360 Output Total 300 750 Balance 240 -390 Intake: Oral 540 360 Output: Urine 300 750 Other: Voiding Method Urinal Urinal # Voids 2 1 04/04/24 10:09 04/04/24 10:09
--- NOTE | 2024-04-04 15:58 | CA ---
Transthoracic Echo Report Name: Barak Evans Age: 69 Gender: M : 1955 Exam Date: 04/03/2024 11:32 Exam Location: [place] [facility] Ht (in): 72 Wt (lb): 290 Ordering Physician: Artie Truong DO Attending/Referring Phys: Starchmaker Maria G Hutchinson RDCS Procedure CPT: Indications: Thrombus Cardiac Hx: Technical Quality: Very technically difficult study Contrast 1: Agitated Saline Total Dose (mL): 9 Contrast 2: Definity Total Dose (mL): 2 MEASUREMENTS (Male / Female) Normal Values 2D ECHO LV Diastolic Diameter PLAX 5.3 cm 4.2 - 5.9 / 3.9 - 5.3 cm LV Systolic Diameter PLAX 3.5 cm IVS Diastolic Thickness 1.8 cm 0.6 - 1.0 / 0.6 - 0.9 cm LVPW Diastolic Thickness 1.7 cm 0.6 - 1.0 / 0.6 - 0.9 cm LV Relative Wall Thickness 0.7 RV Internal Dim ED PLAX 4.5 cm LVOT Diameter 2.0 cm LA Volume 237.9 cm??? 18 - 58 / 22 - 52 cm??? LA Volume Index 90.2 cm???/m??? 16 - 28 cm???/m??? DOPPLER AV Peak Velocity 148.7 cm/s AV Peak Gradient 8.8 mmHg AV Mean Velocity 105.3 cm/s AV Mean Gradient 5.0 mmHg AV Velocity Time Integral 32.9 cm LVOT Peak Velocity 71.3 cm/s LVOT Peak Gradient 2.0 mmHg LVOT Velocity Time Integral 14.9 cm LVOT Stroke Volume 49.1 cm??? LVOT Stroke Volume Index 19.7 ml/m??? LVOT Cardiac Index 1191.6 cm???/min???m??? AV Area Cont Eq vti 1.5 cm??? AV Area Cont Eq pk 1.6 cm??? MV Area PHT 2.6 cm??? Mitral E Point Velocity 99.7 cm/s Mitral A Point Velocity 0.1 cm/s Mitral E to A Ratio 691.7 MV Deceleration Time 296.4 ms FINDINGS Left Ventricle Severely increased left ventricular wall thickness. Left ventricular cavity size normal. Moderately reduced global left ventricular systolic function. Left ventricular ejection fraction is estimated at 35-40 %. Grade 2 diastolic dysfunction. Right Ventricle Severe right ventricular dilatation. Right Atrium Right atrium not well visualized. Attempted agitated saline bubble study for right to left shunt images not clear enough to comment. Left Atrium Severely increased left atrial volume. Severely increased left atrial area. Mitral Valve Mitral valve not well visualized. Posteriorly directed mitral regurgitation jet. [id number] mitral regurgitation. Aortic Valve Aortic valve not well visualized. No aortic valve stenosis or regurgitation. Tricuspid Valve Tricuspid valve not well visualized. Pulmonic Valve Pulmonic valve not well visualized. Pericardium No pericardial effusion. Aorta Normal size aortic root and proximal ascending aorta. CONCLUSIONS Very technically difficult study. LVEF 40% Severe left atrial dilatation Moderate mitral regurgitation RV appears dilated Bubble study was nonconclusive Previewed by: Dr Dani Cleaning (Electronically Signed) Final Date: 04 April 2024 15:57
--- NOTE | 2024-04-04 16:01 | P.PN ---
Subjective Progress Note Date: 04/04/24 HISTORY OF PRESENTING ILLNESS 69-year-old male presented to the hospital with right-sided numbness and ti ngling in the face that started in the morning. He denied any symptoms of chest pain chest pressure. He was admitted with a working diagnosis of possible CVA/TIA. CT of the brain did not show any acute process. CT head and neck did not show any significant stenosis in carotids but did report a blockage of left vertebral artery. EKG showed atrial fibrillation, slow ventricular response, right bundle branch block, left axis deviation. His ECG reviewed from 2018 also showed A-fib however right bundle appears new. Labs showed hemoglobin 17, creatinine 0.8, TSH 1.0, HbA1c 5.6 Progress note March 2024 Patient continues to be in atrial fibrillation. His MRI showed left thalamic CVA PHYSICAL EXAMINATION Vital signs reviewed. Head: Normocephalic. Eyes: Sclerae nonicteric. Neck: Brisk carotid upstroke, no jugular venous distention. Lungs: Clear to auscultation. Heart: Irregularly irregular pulse, mild systolic murmur audible Abdomen: Soft nontender, positive bowel sounds. Extremities: No edema, intact distal pulses. Neuro: Alert, Detailed neuro exam was not performed. ASSESSMENT Right-sided numbness, concern of CVA/TIA Chronic atrial fibrillation, slow ventricular response Right bundle branch block Obesity GERD Obesity Suspect sleep apnea Echo shows EF 40%, severe left atrial dilatation, moderate functional mitral regurgitation, calcific thickening of mitral valve leaflet, dilated right atrium and right ventricle. PLAN Continue to monitor telemetry for any pauses or significant bradycardia Discontinue aspirin. Start Eliquis 5 mg twice daily. Continue Brilinta. Continue Lipitor. Recommend outpatient follow-up in cardiology office. Recommend outpatient ischemic evaluation with a stress test. No smoking, alcohol use drug use marijuana use if any. Outpatient sleep study evaluation. Objective - Vital Signs Vital signs: Vital Signs Temp 97.9 F 04/04/24 15:05 Pulse 63 04/04/24 15:05 Resp 16 04/04/24 15:05 BP 156/84 04/04/24 15:05 Pulse Ox 97 04/04/24 15:05 FiO2 Intake & Output 04/03/24 04/04/24 04/04/24 18:59 06:59 18:59 Intake Total 540 762 360 Output Total 800 750 Balance 540 -38 -390 Weight 131.542 kg Intake: Oral 540 496 360 Output: Urine 800 750 Other: Voiding Method Urinal Urinal # Voids 2 1 - Labs CBC & Chem 7: 04/04/24 10:09 04/04/24 10:09 Labs: Abnormal Lab Results - Last 24 Hours (Table) 04/04/24 04/04/24 04/04/24 Range/Units 00:18 10:09 10:09 WBC 11.1 H (3.8-10.6) k/uL Hct 53.9 H (39.0-53.0) % Neutrophils # 9.7 H (1.3-7.7) k/uL Lymphocytes # 0.5 L (1.0-4.8) k/uL Chloride 109 H (98-107) mmol/L Carbon Dioxide 19 L (22-30) mmol/L Glucose 115 H (74-99) mg/dL POC Glucose (mg/dL) 133 H (70-110) mg/dL
[2024-04-04] MEDS: APIXABAN 5 MG TAB PO SCH (20:35)
[2024-04-05] MEDS: HYDROcodone/APAP 5-325MG 1 EACH TAB PO PRN (00:15)
[2024-04-05 07:00] LABS: Basophils % (A) 0 %; Eosinophils # (A) 0.3 k/uL (0-0.7); Eosinophils % (A) 3 %; HCT 49.1 % (39.0-53.0); HGB 15.4 gm/dL (13.0-17.5); Lymphocytes # (A) 0.5 k/uL (1.0-4.8); Lymphocytes % (A) 6 %; MCH 29.7 pg (25.0-35.0); MCHC 31.4 g/dL (31.0-37.0); MCV 94.6 fL (80.0-100.0); Mean Platelet Volume 7.2; Monocytes # (A) 0.6 k/uL (0-1.0); Monocytes % (A) 7 %; Neutrophils # (A) 6.8 k/uL (1.3-7.7); Neutrophils % (A) 82 %; Platelet Count 154 k/uL (150-450); RBC 5.19 m/uL (4.30-5.90); RDW 13.6 % (11.5-15.5); WBC 8.3 k/uL (3.8-10.6)
[2024-04-05 11:26] LABS: Chol/HDL Ratio 3.45 Ratio; LDL Cholesterol,Calculated 86.5 mg/dL (0.0-131.0); VLDL Calculation 18.64 mg/dL (5.00-40.00)
--- NOTE | 2024-04-05 12:23 | P.PN ---
Subjective Progress Note Date: 04/05/24 Principal diagnosis: Left Thalamic CVA Mr. Dockery is a 69-year-old male with history of atrial fibrillation (he was not on anticoagulation prior to admission, COPD, CAD esophageal reflux disease, pneumonia, right hydrocele, motion sickness. He was admitted to [facility] on April 03 with complaints of right sided numbness and tingling as well as weakness of his face arm and leg since the morning. It was noted he was only on aspirin for his atrial fibrillation was not on anticoagulation. He received a CT scan showing atrophy as well as small vessel disease but also received an MRI April 03 revealing a left thalamic infarct with evidence of small vessel disease. His echo revealed ejection fraction of 35 to 40% with grade 2 diastolic dysfunction as well as left atrial dilation. At this time he is managed on both Eliquis 5 mg twice daily and Brilinta 90 mg twice daily. He had a possible exacerbation of symptoms yesterday with increased right sided weakness. As when he is questioned this morning he notes this may be due to back pain as he had a fall with significant back pain on his right side. He feels that he is unsure if weakness is progressed since he came in the hospital. On exam patient's cranial nerves II through XII appear intact. His left arm is approximate 5- out of 5 with intact finger intrinsic muscles. Bilateral hip f lexors are 5 out of 5. He notes no sensory deficit or coordination deficit is reflexes are intact. Plan Mr. Jacob is a 69-year-old man with new left thalamic infarct. He has a history of history of atrial fibrillation for which she has been placed on Eliquis as well as Brilinta for further antiplatelet protection. Plan 1. He has being seen by the rehab team and will be evaluated for possible i npatient rehab. 2. I do not see the need for repeat MRI at this time as the symptoms do not appear have to have progressed. 3. I would continue him on Eliquis for his atrial fibrillation as well as Brilinta for possible vascular disease and in addition to Lipitor 40 mg daily for hypercholesterolemia. 4. Neuro will continue to follow him intermittently. Objective - Vital Signs Vital signs: Vital Signs Temp 97.9 F 04/05/24 08:00 Pulse 60 04/05/24 11:38 Resp 17 04/05/24 11:38 BP 157/90 04/05/24 11:38 Pulse Ox 99 04/05/24 11:38 FiO2 Intake & Output 04/04/24 04/05/24 04/05/24 18:59 06:59 18:59 Intake Total 540 118 Output Total 750 300 Balance -210 -300 118 Weight 124.5 kg Intake: Oral 540 118 Output: Urine 750 300 Other: Voiding Method Urinal Urinal Urinal # Voids 1 1 # Bowel Movements 1 - Labs CBC & Chem 7: 04/05/24 06:22 04/04/24 10:09 Labs: Abnormal Lab Results - Last 24 Hours (Table) 04/05/24 Range/Units 06:22 Lymphocytes # 0.5 L (1.0-4.8) k/uL
--- NOTE | 2024-04-05 13:09 | P.CONS ---
History of Present Illness - Reason for Consult Consult date: 04/05/24 Evaluate for Rehabilitation needs - Chief Complaint CVA - History of Present Illness Patient is a 69 year old, right handed, male, who lives with and son in a 2 story home, with 4 STFD, but reports he is able to stay just on the first floor. Prior to admission, pt was ambulating without an assistive device. Pt was independent for basic/advanced ADLs. Current driving: yes. Transportation by: self. 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 Support system: and son. Patient presented to [facility] ER on 04/03/24 with right side numbness and tingling of the face, leg and arm. Patient also found to be bradycardic with heart rate 47-52 on arrival. EKG showed atrial fibrillation, slow ventricular response, right bundle branch block, left axis deviation. CT of the brain was negative for acute process. CTA of the head and neck showed no significant stenosis or aneurysm but there is blockage of the left vertebral artery. MRI brain +left thalamic CVA. ECHO with 40% EF and severe atrial dilation. PM&R consulted to evaluate for rehabilitation needs. 04/05/24: Patient seen and examined sitting in chair with family at . Reports he is doing good other than feeling 'on and off' SOB and has had 2 falls while in the hospital. Reports right arm pain and bruise to right scapula area after his fall. Denies CP and abdominal pain. Review of Systems As above in HPI. Past Medical History Past Medical History: Atrial Fibrillation, COPD, GERD/Reflux, Pneumonia Additional Past Medical History / Comment(s): rt hydrocele History of Any Multi-Drug Resistant Organisms: None Reported Past Surgical History: Appendectomy, Bariatric Surgery, Hernia Repair, Tonsillectomy Additional Past Surgical History / Comment(s): Colonoscopy, Inguinal hernia repair, bariactric sleeve Past Anesthesia/Blood Transfusion Reactions: Motion Sickness Past Psychological History: No Psychological Hx Reported Smoking Status: Never smoker Past Alcohol Use History: Occasional Past Drug Use History: None Reported - Past Family History Mother Family Medical History: Deep Vein Thrombosis (DVT) Medications and Allergies Home Medications Medication Instructions Recorded Confirmed Type Lisinopril-Hctz 20-12.5 mg 1 tab PO DAILY 03/13/19 04/03/24 History [Zestoretic 20-12.5] Multivitamins, Thera [Multivitamin 1 tab PO DAILY 08/07/20 04/03/24 History (formulary)] Acetaminophen Tab [Tylenol Tab] 500 mg PO HS 04/03/24 04/03/24 History Aspirin EC [Ecotrin Low Dose] 81 mg PO DAILY 04/03/24 04/03/24 History Ipratropium-Albuterol Nebulize 3 ml INHALATION DIRECTED 04/03/24 04/03/24 History [Duoneb 0.5 mg-3 mg/3 ml Soln] Montelukast [Singulair] 10 mg PO HS 04/03/24 04/03/24 History Pantoprazole Sodium [Protonix] 40 mg PO DAILY 04/03/24 04/03/24 History Power C 1 tab PO HS 04/03/24 04/03/24 History predniSONE See Taper PO DAILY 04/03/24 04/03/24 History Allergies Allergy/AdvReac Type Severity Reaction Status Date / Time No Known Allergies Allergy Verified 04/03/24 11:54 Physical Exam Vitals: Vital Signs Temp Pulse Pulse Resp BP BP Pulse Ox 04/05/24 08:00 97.9 F 68 18 160/76 99 04/05/24 03:57 97.3 F L 56 L 18 126/69 99 04/05/24 02:00 58 L 18 04/04/24 23:31 98.2 F 58 L 18 124/64 97 04/04/24 20:58 84 04/04/24 20:46 80 04/04/24 19:45 97.9 F 54 L 16 174/80 99 04/04/24 15:05 97.9 F 63 16 156/84 97 04/04/24 13:38 65 16 04/04/24 11:31 97.8 F 65 65 16 150/89 150/89 98 Intake and Output 04/04/24 04/05/24 04/05/24 22:59 06:59 14:59 Intake Total 180 118 Output Total 300 Balance -120 118 Intake: Oral 180 118 Output: Urine 300 Other: Voiding Method Urinal Urinal Urinal # Voids 1 # Bowel Movements 1 Weight 124.5 kg General: Well-developed, well-nourished male, in no acute distress HEENT: NC/AT, external ears intact, hearing intact to conversational speech CV: No acute distress, alarm security or surveillance monitor in place Lungs: labored breathing on 2L O2 NC Abdomen: Soft, nontender, nondistended MSK: full ROM bilateral UE and LEs; except decreased ROM RUE Neuro: A&O x 4. Left sided facial droop +Numbness and tingling to right UE/LE Coordination: FTN and HTS WFL on left side, +Dysmetria/ataxia on right MMT: L SABD/EE/EF/FABD/WE/HG - 5 R SABD/EE/EF/FABD/WE/HG - 4 L HF/KE/DF/EHL - 5 R HF/KE/DF/EHL - 4 MSR: L/R Biceps/Triceps/Brachioradialis - 2 L/R Patella/Achilles - 2 Psych: mood calm, affect appropriate Extremities: B/L calves supple, non tender, no edema Skin: Skin intact where visible to head, neck, and bilateral upper and lower extremities, Except: Brusing to right scapula, IV Results CBC & Chem 7: 04/05/24 06:22 04/04/24 10:09 Labs: Abnormal Lab Results - Last 24 Hours (Table) 04/04/24 04/04/24 04/05/24 Range/Units 10:09 10:09 06:22 WBC 11.1 H (3.8-10.6) k/uL Hct 53.9 H (39.0-53.0) % Neutrophils # 9.7 H (1.3-7.7) k/uL Lymphocytes # 0.5 L 0.5 L (1.0-4.8) k/uL Chloride 109 H (98-107) mmol/L Carbon Dioxide 19 L (22-30) mmol/L Glucose 115 H (74-99) mg/dL Assessment and Plan Assessment: #Left Thalamic CVA with right sided weakness -Comprehensive therapies #Frequent Falls -Patient reports 2 falls during hospitalization - +Bruising and right arm pain s/p fall -Fall precautions #Atrial fibrillation with slow ventricular response -Outpatient follow-up in cardiology office was recommended for ischemic evaluation with a stress test #COPD -Patient currently reports intermittent SOB, on 2L NC #Bowel/ Bladder: Nursing to monitor and report concerns if any. #Diet: -Per EMR Skin/wound: Skin/Wound care to follow as needed. Pain Management: -Tylenol Q6H prn, norco 5/325 Q6H prn DVT Prophylaxis: -Eliquis Your medical dx and mgt Goals: Modified Independent mobility and ADLS both basic and advanced; increased functional mobility/strength; increased balance, safety, endurance. Improvement in medical issues through your care. Barriers: Fall risk, endurance, oxygen therapy Discharge recommendation: Patient is pending therapy evaluations. Patient will likely be a good IPR candidate, but therapy progress notes need to be reviewed before a recommendation can be made. Patient would also need an insurance authorization. Will continue to follow and make recommendations pending therapy notes. Patient seen and examined in collaboration with Dr Holland. Patient seen and examined in collaboration with Ayana Bell NP, note scribed by her; agree with above. Thank you for this consultation.
--- NOTE | 2024-04-05 14:07 | P.PN ---
Subjective HISTORY OF PRESENT ILLNESS: This is a 69-year-old male who presented to the hospital with right-sided numbness and tingling in his face. Patient examined this morning at the bedside. Patient currently denies chest pain or pressure. He denies shortness of breath. Vital signs are stable. Telemetry reveals atrial fibrillation with a heart rate in the 60s. Echo shows EF 40%, severe left atrial dilatation, moderate functional mitral regurgitation, calcific thickening of mitral valve leaflet, dilated right atrium and right ventricle. PHYSICAL EXAM: VITAL SIGNS: Reviewed. GENERAL: Well-developed in no acute distress. NECK: Supple. No JVD or thyromegaly LUNGS: Respirations even and unlabored. Lungs essentially clear to auscultation bilaterally. HEART: Irregular rate and rhythm. S1 and S2 heard. EXTREMITIES: Normal range of motion. No clubbing or cyanosis. Peripheral pulses intact. No lower extremity edema ASSESSMENT: Acute CVA, left thalamus per brain MRI Permanent atrial fibrillation with controlled ventricular rate Right bundle branch block Cardiomyopathy, 40%, ischemic versus nonischemic GERD Obesity: BMI 37.2 PLAN: Continue current cardiac medications Continue anticoagulation with Eliquis Recommend outpatient ischemic evaluation No further inpatient recommendations from a cardiac standpoint We will sign off. Please reconsult if needed Patient to follow-up postdischarge in the office with Dr. Cleaning Nurse practitioner note has been reviewed by physician. Signing provider agrees with the documented findings, assessment, and plan of care documented by TECHNICAL TRANSLATOR as a scribe. Objective - Vital Signs Vital signs: Vital Signs Temp 97.9 F 04/05/24 08:00 Pulse 68 04/05/24 08:00 Resp 18 04/05/24 08:00 BP 160/76 04/05/24 08:00 Pulse Ox 99 04/05/24 08:00 FiO2 Intake & Output 04/04/24 04/05/24 04/05/24 18:59 06:59 18:59 Intake Total 540 118 Output Total 750 300 Balance -210 -300 118 Weight 124.5 kg Intake: Oral 540 118 Output: Urine 750 300 Other: Voiding Method Urinal Urinal Urinal # Voids 1 1 # Bowel Movements 1 - Labs CBC & Chem 7: 04/05/24 06:22 04/04/24 10:09 Labs: Abnormal Lab Results - Last 24 Hours (Table) 11/24/24 11/25/24 Range/Units 10:09 06:22 WBC 11.1 H (3.8-10.6) k/uL Hct 53.9 H (39.0-53.0) % Neutrophils # 9.7 H (1.3-7.7) k/uL Lymphocytes # 0.5 L 0.5 L (1.0-4.8) k/uL
--- NOTE | 2024-04-06 10:36 | P.PN ---
Subjective Progress Note Date: 04/06/24 Principal diagnosis: Left Thalamic Infarct Mr. Dockery is a 69-year-old male with history of atrial fibrillation for which she is managed on Eliquis 5 mg twice daily. He also has COPD, gastropathy reflux disease, history of pneumonia, history of right sided hydrocele as well as motion sickness. Patient was admitted to [facility] on April 03 with some complaints of right sided numbness and tingling in his face arm and leg since the morning. He was previously only on aspirin for his atrial fibrillation. Neurology saw him on April 03 and noted some decree strength in his right lower extremity 4+. He received an MRI of the brain on April 03 revealing a left thalamic infarct with minimal small vessel disease. His last LDL was at 104 on March 19 and he is being managed with Lipitor 40 mg nightly. When seen on April 04 he had some continued right-sided weakness mainly in his arm and had fallen twice in the hospital. When seen yesterday the patient was complaining of some bruising to his left arm and had strength of approximately 3-4 minus in his right shoulder. Today, the patient reports some increased strength in his right arm and is able to ambulate with a rolling walker. He does note that his ambulation appears more steady when he looks at his feet than when he is not looking. Exam: Cranial nerves II through XII appear intact bilaterally. On motor examination the patient has roughly 4+ to 5-5 strength at the right shoulder with 4+ strength of the right finger intrinsics. Right lower extremity is approximately 5- out of 5 at the hip flexors and left upper and lower extremities are 5 out of 5. On sensory examination the patient notes no sensory deficit to light touch on his face arm and leg but he does complain of some sensory deficit to the inside of his right face. Coordination examination is normal. Reexamination reveals 1+ symmetric reflexes with plantar sponsors downgoing bilaterally. Conclusion: Mr. Dockery is a 69-year-old gentleman with a left thalamic infarct likely secondary to high blood pressure. He does have additional atrial fibrillation as well. Plan: 1. Patient is currently being managed on Eliquis 5 mg twice daily as well as Brilinta for thrombosed from thrombotic prophylaxis and he should continue on this as an outpatient. 2. He is awaiting possible transfer to inpatient rehabilitation depending on insurance clearance. 3. Neurology will continue to follow him on an intermittent basis but please reconsult if acute issues occur. Objective - Vital Signs Vital signs: Vital Signs Temp 98.1 F 04/06/24 08:24 Pulse 50 L 04/06/24 09:44 Resp 19 04/06/24 10:00 BP 164/74 04/06/24 08:24 Pulse Ox 98 04/06/24 08:24 FiO2 Intake & Output 04/05/24 04/06/24 04/06/24 18:59 06:59 18:59 Intake Total 894 Output Total 600 Balance 894 -600 Weight 129.5 kg Intake: Oral 894 Output: Urine 600 Other: Voiding Method Urinal Urinal Urinal # Voids 2 # Bowel Movements 1 - Labs CBC & Chem 7: 04/05/24 06:22 04/04/24 10:09
--- NOTE | 2024-04-06 14:34 | P.PN ---
Subjective Progress Note Date: 04/05/24 This a pleasant 69-year-old white male who apparently suffered an acute CVA with right-sided hemiparesis affecting the upper and lower extremities he has been placed on antiplatelet anticoagulation cholesterol control blood pressure control and is still under evaluation by neurology. Patient denies any fever cough or congestion or any new neurological symptoms since last night Objective - Vital Signs Vital signs: Vital Signs Temp 98.0 F 04/05/24 20:00 Pulse 64 04/05/24 20:24 Resp 19 04/05/24 20:00 BP 157/78 04/05/24 20:00 Pulse Ox 96 04/05/24 20:00 FiO2 Intake & Output 04/05/24 04/05/24 04/06/24 06:59 18:59 06:59 Intake Total 894 Output Total 300 Balance -300 894 Weight 124.5 kg Intake: Oral 894 Output: Urine 300 Other: Voiding Method Urinal Urinal Urinal # Voids 1 2 # Bowel Movements 1 - Exam GENERAL: This is a -69year-old in no apparent distress at the time of examination. Pleasant and cooperative. HEENT: Head is atraumatic, normocephalic. Pupils are equal, round, and reactive to light. RESPIRATORY: Clear to auscultation. No wheezes, rales, or rhonchi. No use of accessory muscles. Patient maintaining oxygen saturation greater than 92%. No chest wall tenderness is noted on palpation or with deep breathing. CARDIOVASCULAR: Regular rate and rhythm. S1 and S2 noted. GASTROINTESTINAL: No distention noted. Abdomen soft and round. Normal active bowel sounds auscultated x 4 quadrants. No pain or tenderness noted upon palpation. INTEGUMENTARY: No cyanosis. No jaundice. No rashes noted. No cellulitis noted. EXTREMITIES: 2+ peripheral pulses. No evidence of peripheral edema. No calf tenderness noted. NEUROLOGIC: Cranial nerves II-XII intact. A right facial droop is noted. Right upper extremity weakness and decreased skid wrapper strength noted. Lower extremity with paresthesias. PSYCHIATRIC: Awake, alert, and oriented X 3. Appropriate affect. Intact judgement and insight. - Labs CBC & Chem 7: 04/05/24 06:22 04/04/24 10:09 Labs: Abnormal Lab Results - Last 24 Hours (Table) 04/05/24 Range/Units 06:22 Lymphocytes # 0.5 L (1.0-4.8) k/uL Assessment and Plan (1) Cerebrovascular accident (CVA) Current Visit: Yes Status: Acute Code(s): I63.9 - CEREBRAL INFARCTION, UNSPECIFIED SNOMED Code(s): 770452311 (2) Atrial fibrillation Current Visit: No Status: Acute Code(s): I48.91 - UNSPECIFIED ATRIAL FIBRILLATION SNOMED Code(s): 37064383 (3) Hypertension Current Visit: No Status: Acute Code(s): I10 - ESSENTIAL (PRIMARY) HYPERTENSION SNOMED Code(s): 58133104 (4) Morbid obesity Current Visit: No Status: Acute Code(s): E66.01 - MORBID (SEVERE) OBESITY DUE TO EXCESS CALORIES SNOMED Code(s): 786280298 Plan: Patient still undergoing further evaluation with neurology including carotid ultrasounds MRI echocardiogram. Patient is on anticoagulation antiplatelet anticholesterol and hypertensive medication all for secondary stroke prevention. Will ask for discharge planning regarding EXTR [facility] versus inpatient rehabilitation pending insurance approval. Time with Patient: Greater than 30
--- NOTE | 2024-04-06 14:36 | P.PN ---
Subjective Progress Note Date: 04/06/24 This a pleasant 69-year-old white male who apparently suffered an acute CVA with right-sided hemiparesis affecting the upper and lower extremities he has been placed on antiplatelet anticoagulation cholesterol control blood pressure control and is still under evaluation by neurology. Patient denies any fever cough or congestion or any new neurological symptoms since last night Objective - Vital Signs Vital signs: Vital Signs Temp 98.1 F 04/06/24 08:24 Pulse 59 L 04/06/24 13:23 Resp 19 04/06/24 13:23 BP 161/88 04/06/24 11:49 Pulse Ox 97 04/06/24 11:49 FiO2 Intake & Output 04/05/24 04/06/24 04/06/24 18:59 06:59 18:59 Intake Total 894 236 Output Total 600 Balance 894 -600 236 Weight 129.5 kg Intake: Oral 894 236 Output: Urine 600 Other: Voiding Method Urinal Urinal Urinal # Voids 2 # Bowel Movements 1 - Exam GENERAL: This is a -69year-old in no apparent distress at the time of examination. Pleasant and cooperative. HEENT: Head is atraumatic, normocephalic. Pupils are equal, round, and reactive to light. RESPIRATORY: Clear to auscultation. No wheezes, rales, or rhonchi. No use of accessory muscles. Patient maintaining oxygen saturation greater than 92%. No chest wall tenderness is noted on palpation or with deep breathing. CARDIOVASCULAR: Regular rate and rhythm. S1 and S2 noted. GASTROINTESTINAL: No distention noted. Abdomen soft and round. Normal active bowel sounds auscultated x 4 quadrants. No pain or tenderness noted upon palpation. INTEGUMENTARY: No cyanosis. No jaundice. No rashes noted. No cellulitis noted. EXTREMITIES: 2+ peripheral pulses. No evidence of peripheral edema. No calf tenderness noted. NEUROLOGIC: Cranial nerves II-XII intact. A right facial droop is noted. Right upper extremity weakness and decreased filter pulp washer strength noted. Lower extremity with paresthesias. PSYCHIATRIC: Awake, alert, and oriented X 3. Appropriate affect. Intact judgement and insight. - Labs CBC & Chem 7: 04/05/24 06:22 04/04/24 10:09 Assessment and Plan (1) Cerebrovascular accident (CVA) Current Visit: Yes Status: Acute Code(s): I63.9 - CEREBRAL INFARCTION, UNSPECIFIED SNOMED Code(s): 206960934 (2) Atrial fibrillation Current Visit: No Status: Acute Code(s): I48.91 - UNSPECIFIED ATRIAL FIBRILLATION SNOMED Code(s): 79945340 (3) Hypertension Current Visit: No Status: Acute Code(s): I10 - ESSENTIAL (PRIMARY) HYPERTENSION SNOMED Code(s): 30531240 (4) Morbid obesity Current Visit: No Status: Acute Code(s): E66.01 - MORBID (SEVERE) OBESITY DUE TO EXCESS CALORIES SNOMED Code(s): 061908884 Plan: Patient still undergoing further evaluation with neurology including carotid ultrasounds MRI echocardiogram. Patient is on anticoagulation antiplatelet anticholesterol and hypertensive medication all for secondary stroke prevention. Will ask for discharge planning regarding EXTR [facility] versus inpatient rehabilitation pending insurance approval. Plan is transferred to [facility] rehab in the morning Friday04/07/24. [facility] hospitalist group the following patients on Friday through the holiday. Strength
[2024-04-06] MEDS ORDERED: METHYL SALICYLATE-MENTHOL OINT (3 OZ TUBE) TOPICAL PRN (19:49)
[2024-04-07 07:54] VITALS: BP 166/90; TEMP 98.4
[2024-04-07 09:49] VITALS: PULSE 63; RESP 19
--- NOTE | 2024-04-07 10:20 | P.DS ---
Providers Date of admission: 04/03/24 10:38 Attending physician: Cristo Bhakta Consults: 04/03/24 10:38 Consult Physician Urgent Consulting Provider: Km Randolph Consult Reason/Comments: cva Do you want consulting provider notified?: Yes 04/04/24 14:47 Consult Physician Routine Consulting Provider: Alex Herrera Consult Reason/Comments: In patient rehab/stroke Do you want consulting provider notified?: Yes Primary care physician: Cristo Bhakta Hospital Course: Final Diagnosis Acute stroke left thalamic region with right-sided parasthesias and weakness patient has motor strength of 3 out of 5 in the right upper extremity he has been cleared for discharge to [facility] Chronic atrial fibrillation prior anticoagulation with aspirin patient will discharge on a combination of Eliquis 5 mg twice a day and Brilinta 90 mg twice a day New onset cardiomyopathy EF 40% ischemic versus nonischemic patient requires further workup on an outpatient basis Hypertension resumed on Zestoretic Morbid obesity COPD with no acute exacerbation Gastroesophageal reflux disease Never smoker Full code Discharge Disposition Stable for discharge to the [facility] inpatient rehabilitation. He will continue on anticoagulation therapy with Eliquis 5 mg twice a day as well as Brilinta 90 mg twice a day for primary stroke prevention. Patient is only previously been on aspirin 81 mg daily. Patient is resumed on his blood pressure medication as he had adequate time allotted for submissive blood pressure following the acute stroke. Is continued on statin therapy high dose with Lipitor. Cardiology is recommending outpatient evaluation for ischemic workup secondary to the decreased ejection fraction of 40%. Dr Jacobs information has been provided. Patient should follow-up in the cardiology office for a stress test. May be considered for outpatient sleep study evaluation as well. Follow-up with his primary care provider Dr. Cristo Bhakta in the office in 1 week following repair department of subacute rehabilitation. Additionally patient establish care with a neurologist Dr. León's information is provided however he may follow-up with a neurologist in place. Hospital Course This is a pleasant 69-year-old male with medical history of atrial fibrillation, hypertension, COPD, GERD. Patient presented over to [facility] on April 03 with complaints of garbled speech paresthesias of the right arm and right leg that had improved but not completely resolved. Onset of symptoms was approximately 8:20 AM. Patient was having issues with coordination came to the hospital for further evaluation and concern for acute stroke. Initial brain CT was negative for acute findings. CT angiography reveals a markedly diminutive left vertebral artery with a dominant right vertebral artery which is widely patent. Was admitted to the hospital under internal medicine with a consult placed to neurology and cardiology services for full stroke work up Echocardiogram reveals an LV ejection fraction of 40% with severe left atrial dilatation, moderate mitral regurgitation, RV appears dilated, bubble study was nonconclusive. MRI does reveal a small abnormal region of restricted diffusion in the left dominance compatible with acute infarction. There are patchy periventricular and subcortical white matter FLAIR signal compatible with mo derate chronic microvascular ischemia. Due to the worsening weakness of the right arm and mobility in the shoulder and x-ray was completed which reveals no acute fracture or dislocation in the right shoulder there is mild to moderate narrowing and spurring at the A/C joint. A repeat brain CT was also completed secondary to the worsening weakness of the right arm which reveals no acute intracranial hemorrhage or midline shift there is diffuse age-related cerebral atrophy and chronic small vessel ischemic change noted. Was evaluated for inpatient rehabilitation at [facility]. Patient has received authorization for discharge and he will discharge today with the above mentioned recommendations. Please see medication reconciliation for a list of current medications. Thank dominic for allowing us to participate in the care of this patient. The impression and plan of care has been dictated by Sharri Pacheco, Nurse Practitioner as directed. Dr. Sanchez MD I have performed a history and physical examination and medical decision making of this patient, discussed the same with the dictator, and agree with the dictators assessment and plan as written, documented as a scribe. Based on total visit time, I have performed more than 50% of this visit. Patient Condition at Discharge: Stable Plan - Discharge Summary Discharge Rx Participant: Yes New Discharge Prescriptions: New Apixaban [Eliquis] 5 mg PO BID tab Atorvastatin [Lipitor] 40 mg PO HS tab Melatonin 6 mg PO HS PRN tab PRN Reason: Insomnia Ticagrelor [Brilinta] 90 mg PO BID tab HYDROcodone/APAP 5-325MG [[place] 5-325] 1 each PO Q6HR PRN #4 tab PRN Reason: Pain Continue Lisinopril-Hctz 20-12.5 mg [Zestoretic 20-12.5] 1 tab PO DAILY Multivitamins, Thera [Multivitamin (formulary)] 1 tab PO DAILY Pantoprazole Sodium [Protonix] 40 mg PO DAILY Montelukast [Singulair] 10 mg PO HS Acetaminophen Tab [Tylenol] 500 mg PO HS Ipratropium-Albuterol Nebulize [Duoneb 0.5 mg-3 mg/3 ml Soln] 3 ml INHALATION DIRECTED Discontinued Power C 1 tab PO HS predniSONE See Taper PO DAILY Aspirin EC [Ecotrin Low Dose] 81 mg PO DAILY Discharge Medication List Lisinopril-Hctz 20-12.5 mg [Zestoretic 20-12.5] 1 tab PO DAILY 03/13/19 [History] Multivitamins, Thera [Multivitamin (formulary)] 1 tab PO DAILY 08/07/20 [History] Acetaminophen Tab [Tylenol] 500 mg PO HS 04/03/24 [History] Ipratropium-Albuterol Nebulize [Duoneb 0.5 mg-3 mg/3 ml Soln] 3 ml INHALATION DIRECTED 04/03/24 [History] Montelukast [Singulair] 10 mg PO HS 04/03/24 [History] Pantoprazole Sodium [Protonix] 40 mg PO DAILY 04/03/24 [History] Apixaban [Eliquis] 5 mg PO BID tab 04/07/24 [Rx] Atorvastatin [Lipitor] 40 mg PO HS tab 04/07/24 [Rx] HYDROcodone/APAP 5-325MG [[place] 5-325] 1 each PO Q6HR PRN #4 tab 04/07/24 [Rx] Melatonin 6 mg PO HS PRN tab 04/07/24 [Rx] Ticagrelor [Brilinta] 90 mg PO BID tab 04/07/24 [Rx] Follow up Appointment(s)/Referral(s): Cristo Bhakta DO [Primary Care Provider] - 1-2 days Neri Bradley DO [STAFF PHYSICIAN] - 1 Week (Neurology ) Radha Lemus MD [STAFF PHYSICIAN] - 1 Week Activity/Diet/Wound Care/Special Instructions: Patient is stable medically for DC to [facility] inpatient rehab. Needs to follow up with a neurologist on 1 to [address] Bradley has been recommended but you may choose any neurologist to follow up with. Cardiology recommending outpatient ischemic evaluation once discharged from rehab. Discharge Disposition: TRANSFER TO SNF/ECF
== END 2024-04-07 12:21 | DRG 65 ==
LOC: EC 09:04 → 3SCARD 10:38
PROVIDERS: ADMIT Family Medicine; ATTEND Family Medicine
DX: I63.81 Other cerebral infarction due to occlusion or stenosis of small artery (principal); G81.91 Hemiplegia, unspecified affecting right dominant side; I45.2 Bifascicular block; I48.21 Permanent atrial fibrillation; I42.9 Cardiomyopathy, unspecified; R00.1 Bradycardia, unspecified; I34.0 Nonrheumatic mitral (valve) insufficiency; K21.9 Gastro-esophageal reflux disease without esophagitis; Z68.39 Body mass index [BMI] 39.0-39.9, adult; E66.9 Obesity, unspecified; I11.0 Hypertensive heart disease with heart failure; S40.011A Contusion of right shoulder, initial encounter; S40.022A Contusion of left upper arm, initial encounter; E66.01 Morbid (severe) obesity due to excess calories; I10 Essential (primary) hypertension; I25.10 Atherosclerotic heart disease of native coronary artery without angina pectoris; J44.9 Chronic obstructive pulmonary disease, unspecified; K31.9 Disease of stomach and duodenum, unspecified; R29.6 Repeated falls; W19.XXXA Unspecified fall, initial encounter; Y92.239 Unspecified place in hospital as the place of occurrence of the external cause; Z79.01 Long term (current) use of anticoagulants; Z79.02 Long term (current) use of antithrombotics/antiplatelets; Z79.899 Other long term (current) drug therapy; Z87.01 Personal history of pneumonia (recurrent); Z91.81 History of falling; Z79.82 Long term (current) use of aspirin; Z87.19 Personal history of other diseases of the digestive system
CPT/HCPCS: 36415; 70450; 70496; 70498; 70551; 71046; 80048; 80053; 80061; 82550; 83036; 84443; 85025; 85610; 85730; 93005; 93306; 94640; 94760; 96361; 96372; 96374; 96375; 99291

== ENCOUNTER → 2024-07-02 | Outpatient (CLI) | payer MEDICARE ==
[2024-07-02 15:40] LABS: Chol/HDL Ratio 4.51 Ratio; LDL Cholesterol,Calculated 105.3 mg/dL (0.0-131.0)
[2024-07-02 18:13] LABS: Cardiolipin Ab IgG Interp Negative (Negative); Cardiolipin Ab IgM Interp Negative (Negative); Cardiolipin IgA Antibody <2.0 U/mL; Cardiolipin IgM Antibody <1.5 U/mL
== END | disposition home or self-care (01) ==
LOC: LABPAT 10:29
PROVIDERS: ATTEND Psychiatry & Neurology Neurology
DX: Z86.73 Personal history of transient ischemic attack (TIA), and cerebral infarction without residual deficits (principal)
CPT/HCPCS: 80061; 82607; 83036; 85300; 85303; 85306; 85613; 85730; 86147

== ENCOUNTER → 2024-08-30 | Outpatient (CLI) | payer MEDICARE | END | disposition home or self-care (01) | LOC: LABWHC1 10:02 | PROVIDERS: ATTEND Psychiatry & Neurology Neurology | DX: G62.9 Polyneuropathy, unspecified (principal); Z86.73 Personal history of transient ischemic attack (TIA), and cerebral infarction without residual deficits; Z79.899 Other long term (current) drug therapy | CPT/HCPCS: 36415; 82306; 82607; 83036 ==

== ENCOUNTER → 2024-09-27 | Outpatient (CLI) | payer MEDICARE ==
--- NOTE | 2024-09-27 14:15 | MR ---
EXAMINATION TYPE: MR shoulder RT wo con DATE OF EXAM: 09/27/2024 1:36 PM COMPARISON: Radiograph 08/10/2024 CLINICAL INDICATION: Male, 69 years old with history of M25.511 R SHOULDER PAIN, Right shoulder pain, S/P fall March 2024. TECHNIQUE: Multiplanar, multisequence imaging of the right shoulder is performed without contrast. FINDINGS: There appears to be tear of the superior two thirds of the subscapularis tendon allowing for medial s ubluxation of the long head biceps tendon. The intracapsular portion of the long head biceps tendon s hows abnormal intrinsic signal and there is moderate tenosynovial fluid. Moderate degenerative change of chromic clavicular joint with joint space narrowing and capsular hype rtrophy. Some minimal subchondral cystic changes noted. No significant mass effect on the underlying cuff. There is a deep articular sided tear of the anterior to mid supraspinatus tendon at its insertion maria c suring 1.2 cm long. The tear becomes intrasubstance as it courses posteriorly and medially and with s uspected small articular sided communication at the posterior supraspinatus tendon fibers, coronal im age 16. No retracted tear is seen. Heterogeneous thickening of the infraspinatus tendon without tear. Minimal fatty streaks throughout the rotator cuff musculature without significant atrophy. Mild fluid within the subacromial/subdeltoid bursa. Abnormal signal within the substance of the superior labrum. No paralabral cyst. Mild thinning of gle nohumeral joint articular cartilage. Small joint effusion. No Hill-Sachs deformity or os acromiale. Chondroid lesion measuring 1.4 cm within the proximal small humeral metaphysis. This is centered with in the intramedullary space. Otherwise, no suspicious bone marrow replacement. Patchy red marrow hype rplasia is noted. IMPRESSION: 1. Diffuse rotator cuff tendinosis. There is a nondisplaced tear of the supraspinatus tendon. This ap pears to be a deep bursal sided tear involving the anterior to mid insertional fibers. The tear cours es posteriorly and medially and we suspect a small area of full-thickness extension at the posterior supraspinatus tendon fibers. 2. Tear of the superior two thirds of the subscapularis tendon insertion along for medial subluxation of the long head biceps tendon. 3. Tendinosis and interstitial tear involving the intracapsular portion of the long head biceps tendo n. Moderate tenosynovitis. 4. Moderate AC joint OA. 5. Small SLAP tear. [facility], , 09/27/2024 2:13 PM
[2024-09-27 18:05] LABS: HCT 52.7 % (39.6-50.0); MCH 29.9 pg (27.0-32.0); MCHC 32.3 g/dL (32.0-37.0); MCV 92.6 FL (80.0-97.0); Mean Platelet Volume 10.5 FL (9.5-12.2); NRBC Per 100 WBC 0 X 10*3/uL (0.00-0.01); Platelet Count 212 X 10*3/uL (140-440); RBC 5.69 X 10*6/uL (4.40-5.60); WBC 7.24 X 10*3/uL (4.50-10.00)
[2024-09-27 19:15] LABS: NT-Pro-B-Type Natriuretic Pept 664 pg/mL (0-125)
[2024-09-27 19:22] LABS: Chol/HDL Ratio 4.36 Ratio; LDL Cholesterol,Calculated 92.5 mg/dL (0.0-131.0)
[2024-09-27 19:34] LABS: ALT 24 U/L (10-49); Albumin/Globulin Ratio 1.43 Ratio (1.60-3.17); Alkaline Phosphatase 77 U/L (41-126); BUN/Creat Ratio 14.73 Ratio (12.00-20.00); Blood Urea Nitrogen 16.2 mg/dL (9.0-27.0); Calcium 9.5 mg/dL (8.7-10.3); Carbon Dioxide 23.2 mmol/L (21.6-31.8); Chloride 104 mmol/L (96-109); Globulin 2.8 g/dL (1.6-3.3); Glucose 90 mg/dL (70-110); Sodium 138 mmol/L (135-145); Total Bilirubin 1.5 mg/dL (0.3-1.2); Total Protein 6.8 g/dL (6.2-8.2)
== END | disposition home or self-care (01) ==
LOC: RADMRIMAIN 12:43
PROVIDERS: ATTEND Orthopaedic Surgery
DX: S43.431A Superior glenoid labrum lesion of right shoulder, initial encounter (principal); M67.813 Other specified disorders of tendon, right shoulder; M65.911 Unspecified synovitis and tenosynovitis, right shoulder; M19.011 Primary osteoarthritis, right shoulder; D72.9 Disorder of white blood cells, unspecified; R79.89 Other specified abnormal findings of blood chemistry; E11.9 Type 2 diabetes mellitus without complications; I50.9 Heart failure, unspecified; E78.5 Hyperlipidemia, unspecified; E03.9 Hypothyroidism, unspecified
CPT/HCPCS: 80053; 80061; 83036; 83880; 84443; 85027

== ENCOUNTER → 2024-10-28 | Outpatient (CLI) | payer MEDICARE ==
[2024-10-28 19:34] LABS: Basophils # (A) 0.08 X 10*3/uL (0.00-0.10); Basophils % (A) 1.3 %; Eosinophils # (A) 0.28 X 10*3/uL (0.04-0.35); Eosinophils % (A) 4.4 %; HCT 55.1 % (39.6-50.0); HGB 17.1 g/dL (13.0-17.0); Lymphocytes # (A) 0.59 X 10*3/uL (0.90-5.00); Lymphocytes % (A) 9.4 %; MCH 29.6 pg (27.0-32.0); MCV 95.3 FL (80.0-97.0); Mean Platelet Volume 10.5 FL (9.5-12.2); Monocytes # (A) 0.57 X 10*3/uL (0.20-1.00); NRBC Per 100 WBC 0 X 10*3/uL (0.00-0.01); Neutrophils # (A) 4.75 X 10*3/uL (1.80-7.70); Neutrophils % (A) 75.4 %; Platelet Count 216 X 10*3/uL (140-440); RBC 5.78 X 10*6/uL (4.40-5.60); RDW 14.4 % (11.5-14.5)
[2024-10-28 19:43] LABS: Anion Gap 10.3 mmol/L (4.00-12.00); Carbon Dioxide 24.7 mmol/L (21.6-31.8); Potassium 4.3 mmol/L (3.5-5.5)
== END | disposition home or self-care (01) ==
LOC: LABPAT 12:34
PROVIDERS: ATTEND Orthopaedic Surgery
DX: Z01.812 Encounter for preprocedural laboratory examination (principal); M17.12 Unilateral primary osteoarthritis, left knee
CPT/HCPCS: 36415; 80051; 85025

== ENCOUNTER 2024-11-17 05:50 | Day surgery (SDC) | payer MEDICARE ==
--- NOTE | 2024-11-17 00:33 | HP ---
HISTORY AND PHYSICAL DATE OF SURGERY: 11/17/2024 HISTORY OF PRESENT ILLNESS: Barak Evans is a 69-year-old gentleman seen with progressive right shoulder pain. We discussed options regarding treatment. He elected to proceed with right shoulder arthroscopy. Consent is obtained. PAST MEDICAL HISTORY: Hypertension, COPD. PAST SURGICAL HISTORY: Gastric bypass surgery. DAILY MEDICATIONS: Albuterol inhaler, Eliquis, Farxiga, pantoprazole. ALLERGIES: None. SOCIAL HISTORY: Denies tobacco use. PHYSICAL EVALUATION OF THE RIGHT SHOULDER: Flexion is 20 degrees. Abduction is 20 degrees. External rotation is 20 degrees with weakness. Tenderness along the anterolateral acromion, rotator cuff insertion site. Impingement positive at 90. Drop-arm sign is positive. Distal neurovascular exam is intact. IMAGING STUDIES: Right shoulder radiographs revealed a type 2 acromion, acromioclavicular joint osteoarthritis and cystic changes of the tuberosity. MRI of right shoulder rotator cuff tear, partial biceps tendon tear, acromioclavicular joint osteoarthritis and SLAP labral tear. IMPRESSION: 1. Right shoulder impingement with rotator cuff tear. 2. Right shoulder partial biceps tendon tear. 3. Right shoulder acromioclavicular joint, osteoarthritis. 4. Right shoulder labral tear. 5. Atrial fibrillation. PLAN: Right shoulder arthroscopy with subacromial decompression, arthroscopic rotator cuff repair, Aminah procedure, biceps tenodesis, and debridement of labral tear. MMODL / IJN: [id number] /
[2024-11-17 06:30] VITALS: TEMP 97
[2024-11-17 06:35] LABS: Glucose,Whole Blood 96 mg/dL (70-110)
[2024-11-17] MEDS: IV FLUID CONTINUATION 1,000 ML IV ONE (06:38)
[2024-11-17] MEDS: DEXAMETHASONE SOD PHOSPHATE 4 MG/ML 1 ML VIAL IV ONE (06:44)
[2024-11-17] MEDS: ONDANSETRON 4 MG/2 ML VIAL IVP ONE (06:44)
[2024-11-17] MEDS: LACTATED RINGERS 1,000 ML IV SCH (06:45)
[2024-11-17] MEDS ORDERED: HYDROmorphone 0.5 MG/0.5 ML SYRINGE IVP PRN (07:00)
[2024-11-17] MEDS: MIDAZOLAM 2 MG/2 ML VIAL IV ONE (07:16)
[2024-11-17] MEDS: fentaNYL (PF) 50 MCG/ML 2 ML AMP IVP PRN (07:17)
[2024-11-17] MEDS ORDERED: ROPIVACAINE 5 MG/ML 30 ML VIAL ONE (07:25)
[2024-11-17] MEDS ORDERED: SUCCINYLCHOLINE CHLORIDE 200 MG/10 ML VIAL IV ONE (07:25)
[2024-11-17] MEDS ORDERED: ROCURONIUM 10 MG/ML (5 ML VIAL) IV ONE (07:25)
[2024-11-17] MEDS ORDERED: PROPOFOL 10 MG/ML 20 ML VIAL IV ONE (07:25)
[2024-11-17] MEDS ORDERED: LIDOCAINE 1% INJ 10MG/ML (20 ML MDV) ONE (07:25)
[2024-11-17] MEDS ORDERED: PHENYLEPHRINE 10 MG/ML VIAL ONE (07:25)
[2024-11-17] MEDS ORDERED: DEXAMETHASONE SOD PHOSPHATE 4 MG/ML 1 ML VIAL ONE (07:25)
[2024-11-17] MEDS ORDERED: GLYCOPYRROLATE 0.2 MG/ML 2 ML VIAL ONE (07:25)
[2024-11-17] MEDS ORDERED: NEOSTIGMINE 1 MG/ML 10 ML VIAL ONE (07:25)
[2024-11-17] MEDS ORDERED: fentaNYL (PF) 50 MCG/ML 2 ML AMP ONE (07:25)
--- NOTE | 2024-11-17 09:08 | P.OP ---
Date of Procedure: 11/17/24 Preoperative Diagnosis: Right shoulder impingement Postoperative Diagnosis: 1. Right shoulder rotator cuff tear 2. Right shoulder impingement 3. Right shoulder bicipital tendinitis/partial biceps tear 4. Right shoulder superficial labral tear Procedure(s) Performed: 1. Right shoulder arthroscopic rotator cuff repair 2. Right shoulder arthroscopic subacromial decompression 3. Right shoulder arthroscopic biceps tenodesis 4. Right shoulder arthroscopic debridement labral tear Implants: 1Arthrex 4.75 swivel lock anchor 1Arthrex 5.5 swivel lock anchor Anesthesia: GETA, regional (Interscalene block) Surgeon: Ryley Calles Grooving Machine Operator #1: Edward Linares Estimated Blood Loss (ml): 8 Pathology: none sent Disposition: PACU Indications for Procedure: 69-year-old gentleman seen with progressive right shoulder pain. After having treatment options discussed, he elected to proceed with arthroscopy. Operative Findings: See description of procedure Description of Procedure: Patient underwent an interscalene block by department of anesthesia. The patient was then taken to the operative suite. The patient underwent a general anesthetic by the department of anesthesia. The patient was placed into a lateral position and secured. There was appropriate padding of the bony prominence. Right shoulder was then prepped and draped in normal sterile orthopedic fashion. We placed the extremity in 10 pounds of longitudinal traction. A posterior incision was now made for a posterior working portal site. The trocar and cannula were inserted into the glenohumeral joint. Arthroscopy was initiated. Spinal needle was now inserted anteriorly, to ascertain the anterior working portal site. An incision was now made in that area, a trocar was inserted followed by a probe. There was hyperemia and partial tearing of the long head biceps tendon. There was a superficial labral tear involving the superior labrum. There were mild grade I chondromalacia changes glenohumeral joint. I did use a motorized shaver and I debrided out the superficial labral tear getting on the stable labral tissue. I placed a cannula through the anterior portal site. I passed a loop and tack stitch to the biceps tendon and then release it from the superior labral anchor. With the assistance of Van VALENCIA punched a hole at the interval for insertion of an anchor. The suture line was not passed through the eyelet of an Arthrex 4.75 swivel lock anchor. I placed the eyelet into the previous punch hole, I held it in position while Van VALENCIA tensioned the suture and deployed the anchor with good fixation noted. The residual suture limb was clipped. We had a stable appearing biceps tenodesis. Utilizing the posterior working portal site, the trocar and cannula were inserted into the subacromial space. Arthroscopy initiated. I made an incision 2 fingerbreadths lateral to the acromion. I introduced my trocar followed by my ArthroCare ablator. I now began ablating thick subacromial bursal tissue, which exposed the undersurface of the anterior acromion. There was diminished subacromial space. There was a very prominent anterior acromion. A motorized bur was introduced and a subacromial decompression was performed. I also excised some osteophytes off the inferior aspect of the distal clavicle. The AC joint was visualized and noted to be moderately arthritic, I did not think enough to warrant a Aminah procedure. I turned my attention to the rotator cuff tendon. There was a 1.5-2 cm tear involving the anterior aspect of the distal supraspinatus. I debrided the margins getting down to stable tendon tissue. I abraded the footprint with a motorized bur. With the assistance of Van VALENCIA past 3 inverted mattress sutures through good bites of rotator cuff tendon. I punched a hole at the footprint area for insertion of an anchor. All 6 limbs of suture were passed through the eyelet of an Arthrex 5.5 swivel lock anchor. I placed the ottoman into the free punched hole. I held it in position while Van VALENCIA tensioned all 6 limbs of suture and deployed the anchor with good fixation noted. All residual suture limbs were now clipped. We had good compression of the tendon along the entire footprint. Instruments now removed from the portal sites. All portal sites were approximated with nylon suture. Sterile dressings were applied followed by a shoulder sling. Edward VALENCIA assisted in all aspects of this case. The patient was awakened, transferred to a bed, and taken to recovery in stable condition.
[2024-11-17 10:06] VITALS: RESP 16
[2024-11-17 10:51] VITALS: BP 115/77; PULSE 70
--- NOTE | 2024-11-17 14:03 | P.ANPRN ---
Procedure Note - Anesthesia - Nerve Block Performed Right Interscalene Single Time Out Performed: Yes ([id number]) Date of Procedure: 11/17/24 Procedure Start Time: : Procedure Stop Time: :12 Location of Patient: PreOp Indication: Acute Post-Operative Pain, Requested by Surgeon Specifically requested for management of pain by DrKath: Ryley Calles Sedation Type: Sedate with meaningful contact maintained Preparation: Sterile Prep Position: Supine Catheter: None Needle Types: Pajunk Needle Gauge: 21 Ultrasound used to visualize needle placement: Yes Ultrasound used to observe medication spread: Yes Injectate: 0.5% Ropivacaine (see comment for volume) (30cc+decadron 4mg) Blood Aspirated: No Pain Paresthesia on Injection Noted: No Resistance on Injection: Normal Image Stored and Saved: Yes Events: Uneventful and Well Tolerated
== END 2024-11-17 11:19 | disposition home or self-care (01) ==
LOC: OR 05:50
PROVIDERS: ATTEND Orthopaedic Surgery
DX: M75.111 Incomplete rotator cuff tear or rupture of right shoulder, not specified as traumatic (principal); M75.21 Bicipital tendinitis, right shoulder; S46.111A Strain of muscle, fascia and tendon of long head of biceps, right arm, initial encounter; S43.431A Superior glenoid labrum lesion of right shoulder, initial encounter; M19.011 Primary osteoarthritis, right shoulder; M75.41 Impingement syndrome of right shoulder; M94.211 Chondromalacia, right shoulder; G89.18 Other acute postprocedural pain; I48.20 Chronic atrial fibrillation, unspecified; I11.0 Hypertensive heart disease with heart failure; I50.22 Chronic systolic (congestive) heart failure; I25.10 Atherosclerotic heart disease of native coronary artery without angina pectoris; E78.5 Hyperlipidemia, unspecified; J44.9 Chronic obstructive pulmonary disease, unspecified; J98.4 Other disorders of lung; I69.351 Hemiplegia and hemiparesis following cerebral infarction affecting right dominant side; K21.9 Gastro-esophageal reflux disease without esophagitis; R91.8 Other nonspecific abnormal finding of lung field; Z79.01 Long term (current) use of anticoagulants; Z79.02 Long term (current) use of antithrombotics/antiplatelets; Z79.82 Long term (current) use of aspirin; Z79.84 Long term (current) use of oral hypoglycemic drugs; Z79.899 Other long term (current) drug therapy; Z87.891 Personal history of nicotine dependence; Z98.84 Bariatric surgery status
CPT/HCPCS: 29827; 29828; 29826; 64415; C1713 ×2; J2250; J0330; J1100; J2710; J0690; J2405; J2003; J3010; J2795; J2704; J2371; J1596